=== PATIENT | male | born 1940 | race Caucasian/White ===

== ENCOUNTER → 2017-03-29 | Day surgery (SDC) | payer MEDICARE, OTHER ==
[~2017-03-29] MED LIST: ASPI81TA82 PO; BELLADONNA ALKALOIDS/OPIUM 60 MG SUPP RECTAL ONE; BLADTAB OR; GENTAMICIN SULFATE 80 MG/2 ML VIAL ONE; GLUC750T22 PO; LACTATED RINGER'S 1000 ML INJ 1,000 ML ONE; LORA10TA PO; LOSA50TA PO; MELO15 PO; MIDAZOLAM HCL 2 MG/2 ML VIAL ONE; OMEP20TA39 PO; ONDANSETRON HCL 4 MG/2 ML VIAL IV PUSH ONE; PROPOFOL 200 MG/20 ML AMP IV ONE; SIMV40TA PO; STERILE WATER FOR INJ 20 ML VIAL ONE; mitoMYcin 5 MG VIAL ONE
--- NOTE | 2017-03-29 11:02 | TN ---
cc: MABEL CAMPA M.D. DATE OF SURGERY 03/29/2017 PREOPERATIVE DIAGNOSES 1. Bladder lesions (ICD-10 code D41.4). 2. Personal history of bladder cancer (ICD-10 code Z85.51). POSTOPERATIVE DIAGNOSES 1. Bladder lesions (ICD-10 code D41.4). 2. Personal history of bladder cancer (ICD-10 code Z85.51). PROCEDURE 1. Transurethral resection of bladder tumor (TURBT) (CPT code 55621). 2. Intravesical instillation of mitomycin-C chemotherapy (CPT code 00124) INDICATION Mr. 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 On recent surveillance cystoscopy he was found to have several suspicious lesions and presents now for resection as well as treatment with the mitomycin-C intravesical chemotherapy intraoperatively. FINDINGS 1. Normal urethra. 2. The prostate shows trilobar hyperplasia with some moderate obstruction. 3. The ureteral orifices are seen bilaterally with evidence of previous resection. They are patent and effluxing clear urine. 4. The bladder itself showed several separate areas of sessile suspicious lesions throughout the bladder, more pronounced in the anterior bladder wall and dome. These were consistent with early transitional cell carcinoma. There were no brian papillary tumors identified. There was evidence of previous TUR scars also. PROCEDURE The procedure as well as risks and benefits were explained to the patient. Informed consent was obtained. The patient was taken to the major operative theater where he was placed in supine position. The patient was identified as well as the operative site. [place] time-out was performed in standard fashion. At this time general anesthetic and prophylactic intravenous antibiotics consisting of gentamicin 80 mg was administered. After adequate anesthetic he was placed low dorsal lithotomy position, prepped and draped the usual sterile fashion. At this time a 22.5-Serbian cystoscope with a 30-degree lens was inserted. The 30-degree lens was exchanged for the 70-degree lens. The entire bladder was systematically surveyed with the above findings. At this time civil rights representative biopsies were taken of several of the suspicious lesions and sent for final pathological evaluation. The total resection was probably in the area of 1 cm. At this time, using a [employer]classes[employer] probe the biopsy sites were fulgurated as well as we ended up fulgurating some areas that were suspicious that previously had not been biopsied so that there was no evidence of any obvious lesions after resection and fulguration. At this time, after confirming hemostasis and no perforation of the bladder, the cystoscope was removed and a 16-Serbian coude tip catheter was placed to straight drain. The bladder was evacuated and then mitomycin-C intravesical chemotherapy was performed with 40 mg and 20 cc of sterile water and then the catheter was then capped and 10 cc of sterile water was insufflated into the balloon. The patient was then placed back in a supine position, emerged from anesthetic without difficulty and was transferred to the recovery room in stable condition. The patient is to maintain the mitomycin for a total of 1 hour, changing positions every 15 minutes and then to have the mitomycin drained and disposed of as well as the catheter and to be able to void prior to discharge. There are no obvious complications. MD MERA Silva/TAVON /10:40 AM /10:53 AM
== END | disposition home or self-care (01) ==
LOC: ESDC 08:00
PROVIDERS: ATTEND Urology
DX: D41.4 Neoplasm of uncertain behavior of bladder (principal); Z85.51 Personal history of malignant neoplasm of bladder
CPT/HCPCS: 00912; 52234; 88307; J1580; J2250; J2405; J3010; J7120; J9280; 88305

== ENCOUNTER 2018-03-09 11:04 | Inpatient (IN) | payer MEDICARE, OTHER ==
[2018-03-09] VITALS (7 sets, daily range): BP systolic 106–181; BP diastolic 55–87; PULSE 68–91; RESP 17–18; TEMP 98–98.5; O2SAT 95–99
[~2018-03-09] VITALS: Ht 180.3 cm; Wt 87.1 kg
[~2018-03-09 11:04] MED LIST changes: -BELLADONNA ALKALOIDS/OPIUM 60 MG SUPP RECTAL ONE; -GENTAMICIN SULFATE 80 MG/2 ML VIAL ONE; -LACTATED RINGER'S 1000 ML INJ 1,000 ML ONE; -MIDAZOLAM HCL 2 MG/2 ML VIAL ONE; -ONDANSETRON HCL 4 MG/2 ML VIAL IV PUSH ONE; -PROPOFOL 200 MG/20 ML AMP IV ONE; -STERILE WATER FOR INJ 20 ML VIAL ONE; -mitoMYcin 5 MG VIAL ONE
[2018-03-09 11:54] LABS: AUTOMATED NEUTROPHIL # 3.9 TH/MM3 (1.8-7.7); BASOPHIL # 0.1 TH/MM3 (0-0.2); BASOPHIL % 1.1 % (0.0-2.0); EOSINOPHIL # 0.1 TH/MM3 (0-0.4); EOSINOPHIL % 2.1 % (0.0-4.0); HEMATOCRIT 44.4 % (39.0-51.0); HEMOGLOBIN 15.1 GM/DL (13.0-17.0); LYMPH % 23.1 % (9.0-44.0); LYMPHOCYTE # 1.4 TH/MM3 (1.0-4.8); MEAN CELL VOLUME 91.6 FL (80.0-100.0); MEAN CORPUSCULAR HEMOGLOBIN 31.2 PG (27.0-34.0); MEAN CORPUSCULAR HGB CONC 34.1 % (32.0-36.0); MEAN PLATELET VOLUME 7.8 FL (7.0-11.0); MONO % 9.3 % (0.0-8.0); MONOCYTE # 0.6 TH/MM3 (0-0.9); NEUT % 64.4 % (16.0-70.0); PLATELET COUNT 200 TH/MM3 (150-450); RED BLOOD COUNT 4.85 MIL/MM3 (4.50-5.90); RED CELL DISTRIBUTION WIDTH 13.9 % (11.6-17.2); WHITE BLOOD COUNT 6.1 TH/MM3 (4.0-11.0)
[2018-03-09 12:16] LABS: ALBUMIN 3.6 GM/DL (3.4-5.0); ALT (GPT) 37 U/L (12-78); AST (GOT) 20 U/L (15-37); BICARBONATE 28.5 MEQ/L (21.0-32.0); BLOOD UREA NITROGEN 14 MG/DL (7-18); CALCIUM 8.7 MG/DL (8.5-10.1); CHLORIDE 103 MEQ/L (98-107); CREATININE 0.84 MG/DL (0.60-1.30); GLOMERULAR FILTRATION RATE 89 ML/MIN (>89); GLUCOSE,RANDOM 94 MG/DL (74-106); SODIUM (NA) 140 MEQ/L (136-145)
[2018-03-09 12:18] LABS: ALKALINE PHOSPHATASE 66 U/L (45-117); TOTAL BILIRUBIN ADULT 0.8 MG/DL (0.2-1.0)
[2018-03-09] MEDS ORDERED: GADODIAMIDE PF 287 MG/ML 20 ML VIAL (for RAD MRI) IV PUSH ONE (13:00)
[2018-03-09] MEDS ORDERED: CLAR10CA3 PO (14:02)
[2018-03-09] MEDS ORDERED: ASPI81CH6 CHEW (14:02)
[2018-03-09] MEDS ORDERED: OMEP20TA93 PO (14:02)
[2018-03-09] MEDS ORDERED: LUTE20CA PO (14:02)
[2018-03-09] MEDS ORDERED: MELO15TA20 PO (14:02)
--- NOTE | 2018-03-09 14:13 | PD ---
HPI Chief Complaint: Dizziness Time Seen by Provider: 13:53 Travel History International Travel<30 days: No Contact w/Intl Traveler<30days: No Traveled to known affect area: No History of Present Illness HPI 77-year-old male presents to the ED 1 month history dizziness and ataxia. Patient states the dizziness is not a room spinning sensation. He states that it is worsened by standing and alleviated by sitting down. He endorses history of viral illness and cough 1 month before onset of symptoms, was treated by his primary care. He endorses history of seasonal allergies and takes a daily antihistamine for years. He denies headache, vision changes, chest pain, palpitations, shortness of breath, anorexia, abdominal pain, nausea, vomiting, weakness of the extremities. 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 He had an outpatient MRI earlier this month that was unremarkable. He states that he has had "my crystals were adjusted" 2 or 3 times with no improvement of symptoms. He tried meclizine for 3 or 4 days with no symptoms. He has an outpatient neurology appointment. PFSH Past Medical History Cancer: Yes (bladder tumors) Cardiovascular Problems: No Diabetes: No Endocrine: No Gastrointestinal Disorders: Yes (hx of reflux) Genitourinary: Yes (non-evasive bladder tumors) Hepatitis: No Hiatal Hernia: No Hypertension: Yes Immune Disorder: No Musculoskeletal: No Neurologic: No Psychiatric: No Respiratory: No Thyroid Disease: No Past Surgical History Genitourinary Surgery: Yes (bladder tumors removed) Joint Replacement: Yes (left hip) Pacemaker: No Thoracic Surgery: Yes (upper lobectomy due hystoplamosis) Other Surgery: Yes Social History Alcohol Use: Yes Tobacco Use: No Substance Use: No Allergies-Medications (Allergen,Severity, Reaction): Coded Allergies: cephalexin (Unverified Allergy, Severe, Hives, 03/09/18) Reported Meds & Prescriptions Reported Meds & Active Scripts Active Reported Claritin (Loratadine) 10 Mg Cap 10 Mg PO DAILY Lutein 20 Mg Cap 20 Mg PO DAILY Meloxicam 15 Mg Tab 15 Mg PO DAILY Omeprazole 20 Mg Tab 20 Mg PO DAILY Aspirin Low Dose (Aspirin) 81 Mg Chew 81 Mg CHEW DAILY Review of Systems Except as stated in HPI: all other systems reviewed are Neg Physical Exam Narrative GENERAL: Well-nourished, well-developed white male in no acute distress. SKIN: Focused skin assessment warm/dry. HEAD: Normocephalic. EYES: No scleral icterus. No injection or drainage. ENT: Bilaterally. No erythema, edema, exudate. NECK: Supple, trachea midline. No JVD or lymphadenopathy. CARDIOVASCULAR: Regular rate and rhythm without murmurs, gallops, or rubs. RESPIRATORY: Breath sounds clear and equal bilaterally. No accessory muscle use. GASTROINTESTINAL: Abdomen soft, non-tender, nondistended. MUSCULOSKELETAL: No cyanosis, or edema. Patient attempted to ambulate, very ataxic, unsteady gait, left foot dragging behind. NEUROLOGICAL: Awake and alert. Cranial nerves II through XII intact. Motor and sensory grossly within normal limits. Five out of 5 muscle strength in all muscle groups. Normal speech. BACK: Nontender without obvious deformity. No CVA tenderness. Data Data Last Documented VS Vital Signs Date Time Temp Pulse Resp B/P (MAP) Pulse Ox O2 Delivery O2 Flow Rate FiO2 03/09/18 16:48 69 18 165/82 (109) 98 Room Air 03/09/18 11:24 98.0 Orders Orders Electrocardiogram (03/09/18 11:28) Complete Blood Count With Diff (03/09/18 11:28) Comprehensive Metabolic Panel (03/09/18 11:28) Urinalysis - C+S If Indicated (03/09/18 14:13) Ct Brain W/O Iv Contrast(Rout) (03/09/18 ) Consult Neurology (03/09/18 ) Vitamin B12 (03/09/18 17:57) Thyroid Stimulating Hormone (03/09/18 17:57) Copper, Serum (03/09/18 17:57) Protein Electrophoresis Serum (03/09/18 17:57) Place In Observation (03/09/18 ) Vital Signs (Adult) Q4H (03/09/18 17:57) Activity Oob With Assistance (03/09/18 17:57) Intake + Output RAUL.QSHIFT (03/09/18 17:57) Diet Heart Healthy (03/09/18 Dinner) Sodium Chloride 0.9% Flush (Ns Flush) (03/09/18 18:00) Sodium Chloride 0.9% Flush (Ns Flush) (03/09/18 21:00) Comprehensive Metabolic Panel (03/10/18 06:00) Complete Blood Count With Diff (03/10/18 06:00) Pt Request For Service (03/09/18 17:57) Ot Request For Service (03/09/18 17:57) Case Management Consult (03/09/18 17:57) Scd Bilateral/Knee High RAUL.BID (03/09/18 17:57) Naloxone Inj (Narcan Inj) (03/09/18 18:00) Magnesium Hydroxide Liq (Milk Of Magnesi (03/09/18 18:00) Sennosides (Senokot) (03/09/18 18:00) Bisacodyl Supp (Dulcolax Supp) (03/09/18 18:00) Lactulose Liq (Lactulose Liq) (03/09/18 18:00) Drug Screen, Random Urine (03/09/18 17:57) (Hub Use Only)Inp Phy Cons/Ref (03/09/18 ) Admit Order (Ed Use Only) (03/09/18 18:32) Labs Laboratory Tests Test 03/09/18 11:38 03/09/18 14:30 White Blood Count 6.1 TH/MM3 Red Blood Count 4.85 MIL/MM3 Hemoglobin 15.1 GM/DL Hematocrit 44.4 % Mean Corpuscular Volume 91.6 FL Mean Corpuscular Hemoglobin 31.2 PG Mean Corpuscular Hemoglobin Concent 34.1 % Red Cell Distribution Width 13.9 % Platelet Count 200 TH/MM3 Mean Platelet Volume 7.8 FL Neutrophils (%) (Auto) 64.4 % Lymphocytes (%) (Auto) 23.1 % Monocytes (%) (Auto) 9.3 % Eosinophils (%) (Auto) 2.1 % Basophils (%) (Auto) 1.1 % Neutrophils # (Auto) 3.9 TH/MM3 Lymphocytes # (Auto) 1.4 TH/MM3 Monocytes # (Auto) 0.6 TH/MM3 Eosinophils # (Auto) 0.1 TH/MM3 Basophils # (Auto) 0.1 TH/MM3 CBC Comment DIFF FINAL Differential Comment Blood Urea Nitrogen 14 MG/DL Creatinine 0.84 MG/DL Random Glucose 94 MG/DL Total Protein 7.0 GM/DL Albumin 3.6 GM/DL Calcium Level 8.7 MG/DL Alkaline Phosphatase 66 U/L Aspartate Amino Transf (AST/SGOT) 20 U/L Alanine Aminotransferase (ALT/SGPT) 37 U/L Total Bilirubin 0.8 MG/DL Sodium Level 140 MEQ/L Potassium Level 3.9 MEQ/L Chloride Level 103 MEQ/L Carbon Dioxide Level 28.5 MEQ/L Anion Gap 9 MEQ/L Estimat Glomerular Filtration Rate 89 ML/MIN Urine Color YELLOW Urine Turbidity CLEAR Urine pH 7.0 Urine Specific [place] 1.012 Urine Protein NEG mg/dL Urine Glucose (UA) NEG mg/dL Urine Ketones NEG mg/dL Urine Occult Blood NEG Urine Nitrite NEG Urine Bilirubin NEG Urine Urobilinogen LESS THAN 2.0 MG/DL Urine Leukocyte Esterase NEG Urine RBC 4 /hpf Urine WBC 1 /hpf Microscopic Urinalysis Comment CULT NOT INDICATED MDM Medical Decision Making Medical Screen Exam Complete: Yes Emergency Medical Condition: Yes Differential Diagnosis TIA versus CVA versus chronic sinusitis versus vertigo versus other Narrative Course 77-year-old male presents to the ED 1 month history dizziness and ataxia. Patient states the dizziness is not a room spinning sensation. He states that it is worsened by standing and alleviated by sitting down. Worsened ataxic gait over the last few days. 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 He had an outpatient MRI earlier this month that was unremarkable. He states that he has had "my crystals were adjusted" 2 or 3 times with no improvement of symptoms. He tried meclizine for 3 or 4 days with no symptoms. He has an outpatient neurology appointment. Vitals reviewed. On physical exam there are no focal neuro deficits. However on walk testing the patient has a stumbling gait, dragging the left leg somewhat behind him. CBC, CMP, UA, CT of the brain all unremarkable. I reviewed the patient's outpatient MRI which was also unremarkable. Given his continued ataxia will admit for observation and have neuro see him. Patient's agreeable to this plan. I spoke with Dr. Dewitt who agrees to accept the patient to the medicine service. Please see medicine and neurology notes for disposition. Disposition: 01 DISCHARGE HOME Kaycee Urbina March 09, 2018 14:13
[2018-03-09 14:53] LABS: BILIRUBIN, URINE NEG (NEG); BLOOD, URINE NEG (NEG); GLUCOSE,URINE NEG (NEG); KETONE, URINE NEG (NEG); NITRITE,URINE NEG (NEG); URINE COLOR YELLOW (YELLW/STRAW); URINE LEUKOCYTE ESTERASE NEG (NEG)
--- NOTE | 2018-03-09 15:07 | PD ---
Physical Exam Date Seen by Provider: March 09, 2018 Time Seen by Provider: 14:00 Narrative I, Dr. Echeverria, have reviewed the advance practice practitioner's documentation and am in agreement, met with the patient face to face, made the diagnosis, and the medical decision making was done by me. *My assessment and Findings: Patient seen and evaluated with PA, please see PA notes for further details. He has been having dizziness going on for some time for which she is following up with primary care doctor, supposed to see a neurologist next week, had an MRI a week and a half ago. He is coming to the ER today because he states his dizziness has worsened and it feels different, he feels a little disoriented as well. He denies any trouble talking, numbness in arm, leg, chest pains, shortness of breath, or any other symptoms. Cardiac and pulmonary exam was unremarkable. Abdomen is soft, benign, nontender. Neurological exam did not show any signs of focal neurological deficits. No pronator drift. However, patient is having trouble walking, ataxic while we try to walk him in the ER my plan would be to admit him for further evaluation. EKG shows NSR, no ST elevation or depression, and no arrhythmias. No significant T-wave inversions. Laboratory Tests Test 03/09/18 11:38 03/09/18 14:30 Monocytes (%) (Auto) 9.3 % (0.0-8.0) Urine RBC 4 /hpf (0-3) Last [address] 03/09/18 0000 Signed Impressions: CONCLUSION: 1. Senescent changes without acute intracranial abnormality. Data Data Last Documented VS Vital Signs Date Time Temp Pulse Resp B/P (MAP) Pulse Ox O2 Delivery O2 Flow Rate FiO2 03/09/18 16:48 69 18 165/82 (109) 98 Room Air 03/09/18 11:24 98.0 Orders Orders Electrocardiogram (03/09/18 11:28) Complete Blood Count With Diff (03/09/18 11:28) Comprehensive Metabolic Panel (03/09/18 11:28) Urinalysis - C+S If Indicated (03/09/18 14:13) Ct Brain W/O Iv Contrast(Rout) (03/09/18 ) Labs Laboratory Tests Test 03/09/18 11:38 03/09/18 14:30 White Blood Count 6.1 TH/MM3 Red Blood Count 4.85 MIL/MM3 Hemoglobin 15.1 GM/DL Hematocrit 44.4 % Mean Corpuscular Volume 91.6 FL Mean Corpuscular Hemoglobin 31.2 PG Mean Corpuscular Hemoglobin Concent 34.1 % Red Cell Distribution Width 13.9 % Platelet Count 200 TH/MM3 Mean Platelet Volume 7.8 FL Neutrophils (%) (Auto) 64.4 % Lymphocytes (%) (Auto) 23.1 % Monocytes (%) (Auto) 9.3 % Eosinophils (%) (Auto) 2.1 % Basophils (%) (Auto) 1.1 % Neutrophils # (Auto) 3.9 TH/MM3 Lymphocytes # (Auto) 1.4 TH/MM3 Monocytes # (Auto) 0.6 TH/MM3 Eosinophils # (Auto) 0.1 TH/MM3 Basophils # (Auto) 0.1 TH/MM3 CBC Comment DIFF FINAL Differential Comment Blood Urea Nitrogen 14 MG/DL Creatinine 0.84 MG/DL Random Glucose 94 MG/DL Total Protein 7.0 GM/DL Albumin 3.6 GM/DL Calcium Level 8.7 MG/DL Alkaline Phosphatase 66 U/L Aspartate Amino Transf (AST/SGOT) 20 U/L Alanine Aminotransferase (ALT/SGPT) 37 U/L Total Bilirubin 0.8 MG/DL Sodium Level 140 MEQ/L Potassium Level 3.9 MEQ/L Chloride Level 103 MEQ/L Carbon Dioxide Level 28.5 MEQ/L Anion Gap 9 MEQ/L Estimat Glomerular Filtration Rate 89 ML/MIN Urine Color YELLOW Urine Turbidity CLEAR Urine pH 7.0 Urine Specific [place] 1.012 Urine Protein NEG mg/dL Urine Glucose (UA) NEG mg/dL Urine Ketones NEG mg/dL Urine Occult Blood NEG Urine Nitrite NEG Urine Bilirubin NEG Urine Urobilinogen LESS THAN 2.0 MG/DL Urine Leukocyte Esterase NEG Urine RBC 4 /hpf Urine WBC 1 /hpf Microscopic Urinalysis Comment CULT NOT INDICATED MDM Medical Record Reviewed: Yes Supervised Visit with ENZO: Yes Diagnosis Primary Impression: Dizziness Additional Impression: Ataxia Admitting Information Admitting Physician Requests: Admit Medina Echeverria MD March 09, 2018 15:07
--- NOTE | 2018-03-09 15:46 | RADRPT ---
EXAM DATE: 03/09/2018 3:22 PM EDT AGE/SEX: 77 years / Male INDICATIONS: Dizziness CLINICAL DATA: This is the patient's initial encounter. Patient reports that signs and symptoms have been present for 3 weeks and indicates a pain score of 0/10. MEDICAL/SURGICAL HISTORY: Hypertension. Bladder tumors None. RADIATION DOSE: 56.35 CTDI (mGy) COMPARISON: No prior [facility] exams available for comparison. TECHNIQUE: CT of the head without contrast. Using automated exposure control and adjustment of the mA and/or kV according to patient size, radiation dose was kept as low as reasonably achievable to ob tain optimal diagnostic quality images. FINDINGS: Cerebrum: Mild diffuse cerebral atrophy. The ventricles are normal for degree of atrophy. No evidenc e of midline shift, mass lesion, hemorrhage or acute infarction. No extraaxial fluid collections are seen. Posterior Fossa: The cerebellum and brainstem are intact. The 4th ventricle is midline. The cerebe llopontine angle is unremarkable. Extracranial: The visualized portion of the orbits is intact. Skull: The calvaria is intact. No evidence of skull fracture. CONCLUSION: 1. Senescent changes without acute intracranial abnormality. Electronically signed by: Pardeep Quevedo MD 03/09/2018 3:45 PM EDT
[2018-03-09] MEDS ORDERED: SENNOSIDES 8.6 MG TAB PO PRN (18:00)
[2018-03-09] MEDS ORDERED: NALOXONE HCL 0.4 MG/ML AMP IV PUSH PRN (18:00)
[2018-03-09] MEDS ORDERED: SODIUM CHLORIDE 0.9% FLUSH 10 ML FLUSH IV FLUSH PRN (18:00)
[2018-03-09] MEDS ORDERED: MAGNESIUM HYDROXIDE SUSP 30 ML CUP PO PRN (18:00)
[2018-03-09] MEDS ORDERED: BISACODYL 10 MG SUPP RECTAL PRN (18:00)
[2018-03-09] MEDS ORDERED: LACTULOSE SYRUP 20 GM/30 ML CUP PO PRN (18:00)
[2018-03-09] MEDS ORDERED: IOHEXOL 350 MG/ML 10 ML VIAL (for RAD DIAG) IVCONTRAST ONE (18:34)
--- NOTE | 2018-03-09 19:18 | HHI.HP ---
[facility] Lynne Encinas MD Admission Diagnosis Ataxia, dizziness Diagnoses: Travel History International Travel<30 Days: No Contact w/Intl Traveler <30 Da: No Traveled to Known Affected Are: No History of Present Illness 77-year-old male with chronic bilateral lower extremity neuropathy, hypertension , hyperlipidemia who presents with a little over a one-month history of progressively worsening ataxia, multiple falls, unable to walk or take care of himself at home for fear of safety. He also reports subjective weight loss over the past month, muscle wasting. Reports normal appetite. Denies any chest pain or shortness of breath. Denies nausea or vomiting. He denies actual vertigo, however has had vestibular rehab without any improvement. He is also reportedly had bilateral carotid ultrasound which were negative, MRI brain reportedly negative as well. Patient says he has fallen several times secondary to loss of balance, and does not feel safe going home. Review of Systems Except as stated in HPI: all other systems reviewed are Neg Past Family Social History Past Medical History Patient 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 Follows with urology yearly. GERD Hyperlipidemia Hypertension Hayfever Chronic idiopathic bilateral lower extremity neuropathy. 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 Reported Medications Reported Meds & Active Scripts Active Reported Claritin (Loratadine) 10 Mg Cap 10 Mg PO DAILY Lutein 20 Mg Cap 20 Mg PO DAILY Meloxicam 15 Mg Tab 15 Mg PO DAILY Omeprazole 20 Mg Tab 20 Mg PO DAILY Aspirin Low Dose (Aspirin) 81 Mg Chew 81 Mg CHEW DAILY Allergies: Coded Allergies: cephalexin (Unverified Allergy, Severe, Hives, 03/09/18) Family History Mother with dementia. Father secondary to alcoholism Social History Non-smoker. Patient drinks 2 drinks per day. Denies any issues with alcohol or withdrawal. Denies illicit drugs. Physical Exam Vital Signs Vital Signs Date Time Temp Pulse Resp B/P (MAP) Pulse Ox O2 Delivery O2 Flow Rate FiO2 03/09/18 18:49 68 18 117/62 (80) 97 Room Air 03/09/18 16:48 69 18 165/82 (109) 98 Room Air 03/09/18 14:02 71 18 181/87 (118) 99 Room Air 03/09/18 11:24 98.0 69 18 140/79 (99) 98 Physical Exam GENERAL: This is a well-nourished, well-developed patient, in no apparent distress. Alert and oriented SKIN: No rashes, ecchymoses or lesions. Cool and dry. HEAD: Atraumatic. Normocephalic. No temporal or scalp tenderness. EYES: Pupils equal round and reactive. Extraocular motions intact. No scleral icterus. No injection or drainage. ENT: Nose without bleeding, purulent drainage or septal hematoma. Throat without erythema, tonsillar hypertrophy or exudate. Uvula midline. Airway patent. NECK: Trachea midline. No JVD or lymphadenopathy. Supple, nontender, no meningeal signs. CARDIOVASCULAR: Regular rate and rhythm without murmurs, gallops, or rubs. RESPIRATORY: Clear to auscultation. Breath sounds equal bilaterally. No wheezes , rales, or rhonchi. GASTROINTESTINAL: Abdomen soft, non-tender, nondistended. No hepato-splenomegaly , or palpable masses. No guarding. MUSCULOSKELETAL: Extremities without clubbing, cyanosis, or edema. No joint tenderness, effusion, or edema noted. No calf tenderness. Negative Homans sign bilaterally. NEUROLOGICAL: Awake and alert. Cranial nerves II through XII intact. Patient does have bilateral lower extremity ataxia. No significant bilateral upper extremity ataxia.. Five out of 5 muscle strength in all muscle groups. Normal speech. Laboratory Laboratory Tests Test 03/09/18 11:38 03/09/18 14:30 White Blood Count 6.1 Red Blood Count 4.85 Hemoglobin 15.1 Hematocrit 44.4 Mean Corpuscular Volume 91.6 Mean Corpuscular Hemoglobin 31.2 Mean Corpuscular Hemoglobin Concent 34.1 Red Cell Distribution Width 13.9 Platelet Count 200 Mean Platelet Volume 7.8 Neutrophils (%) (Auto) 64.4 Lymphocytes (%) (Auto) 23.1 Monocytes (%) (Auto) 9.3 Eosinophils (%) (Auto) 2.1 Basophils (%) (Auto) 1.1 Neutrophils # (Auto) 3.9 Lymphocytes # (Auto) 1.4 Monocytes # (Auto) 0.6 Eosinophils # (Auto) 0.1 Basophils # (Auto) 0.1 CBC Comment DIFF FINAL Differential Comment Blood Urea Nitrogen 14 Creatinine 0.84 Random Glucose 94 Total Protein 7.0 Albumin 3.6 Calcium Level 8.7 Alkaline Phosphatase 66 Aspartate Amino Transf (AST/SGOT) 20 Alanine Aminotransferase (ALT/SGPT) 37 Total Bilirubin 0.8 Sodium Level 140 Potassium Level 3.9 Chloride Level 103 Carbon Dioxide Level 28.5 Anion Gap 9 Estimat Glomerular Filtration Rate 89 Urine Color YELLOW Urine Turbidity CLEAR Urine pH 7.0 Urine Specific [place] 1.012 Urine Protein NEG Urine Glucose (UA) NEG Urine Ketones NEG Urine Occult Blood NEG Urine Nitrite NEG Urine Bilirubin NEG Urine Urobilinogen LESS THAN 2.0 Urine Leukocyte Esterase NEG Urine RBC 4 Urine WBC 1 Microscopic Urinalysis Comment CULT NOT INDICATED Urine Opiates Screen NEG Urine Barbiturates Screen NEG Urine Amphetamines Screen NEG Urine Benzodiazepines Screen NEG Urine Cocaine Screen NEG Urine Cannabinoids Screen NEG Result Diagram: 03/09/18 1138 03/09/18 1138 Imaging Last Impressions Head CT 03/09/18 0000 Signed Impressions: CONCLUSION: 1. Senescent changes without acute intracranial abnormality. Caprini VTE Risk Assessment Caprini VTE Risk Assessment: Mod/High Risk (score >= 2) Caprini Risk Assessment Model Point Value = 1 Point Value = 2 Point Value = 3 Point Value = 5 Age 41-60 Minor surgery BMI > 25 kg/m2 Swollen legs Varicose veins or History of unexplained or recurrent spontaneous Oral contraceptives or hormone replacement Sepsis (< 1 month) Serious lung disease, including pneumonia (< 1 month) Abnormal pulmonary function Acute myocardial infarction Congestive heart failure (< 1 month) History of inflammatory bowel disease Medical patient at bed rest Age 61-74 Arthroscopic surgery Major open surgery (> 45 min) Laparoscopic surgery (> 45 min) Malignancy Confined to bed (> 72 hours) Immobilizing plaster cast Central venous access Age >= 75 History of VTE Family history of VTE Factor V Leiden Prothrombin [id number] Lupus anticoagulant Anticardiolipin antibodies Elevated serum homocysteine Heparin-induced thrombocytopenia Other congenital or acquired thrombophilia Stroke (< 1 month) Elective arthroplasty Hip, pelvis, or leg fracture Acute spinal cord injury (< 1 month) Prophylaxis Regimen Total Risk Factor Score Risk Level Prophylaxis Regimen 0-1 Low Early ambulation 2 Moderate Order ONE of the following: *Sequential Compression Device (SCD) *Heparin 5000 units SQ BID 3-4 Higher Order ONE of the following medications: *Heparin 5000 units SQ TID *Enoxaparin/Lovenox 40 mg SQ daily (WT < 150 kg, CrCl > 30 mL/min) *Enoxaparin/Lovenox 30 mg SQ daily (WT < 150 kg, CrCl > 10-29 mL/min) *Enoxaparin/Lovenox 30 mg SQ BID (WT < 150 kg, CrCl > 30 mL/min) AND/OR *Sequential Compression Device (SCD) 5 or more Highest Order ONE of the following medications: *Heparin 5000 units SQ TID (Preferred with Epidurals) *Enoxaparin/Lovenox 40 mg SQ daily (WT < 150 kg, CrCl > 30 mL/min) *Enoxaparin/Lovenox 30 mg SQ daily (WT < 150 kg, CrCl > 10-29 mL/min) *Enoxaparin/Lovenox 30 mg SQ BID (WT < 150 kg, CrCl > 30 mL/min) AND *Sequential Compression Device (SCD) Assessment and Plan Assessment and Plan //Ataxia, onset over the past month, worsening //Generalized weakness //Unsafe to go home //Suspect acute on chronic small fiber neuropathy -Recent carotid ultrasounds reportedly negative as outpatient. MRI brain reportedly negative as well. -Head CT with no acute findings = Patient and say he is unsafe to go home at this time. = PT/OT consults. = Patient has been on new turmeric supplement over the past month, and I have asked him to stop this. = Check copper levels, vitamin B12, SPEP, TSH = Neurology consult pending. //GERD. Chronic. Continue PPI. //Hyperlipidemia. Continue statin. //Chronic allergies. Will hold off on antihistamine at this time. //Recent subjective weight loss. Patient will need a follow-up with primary care for this. //Hypertension. Blood pressure variable. Will check orthostatic vitals. Pending orthostatic vitals, will likely continue home medications when verified. Discussed Condition With Patient, nurse, ED physician, at bedside. Param Dewitt MD March 09, 2018 19:18
--- NOTE | 2018-03-09 19:59 | HHI.PR ---
Addendum to Inpatient Note Additional Information ER provider called to inform us that she found a tick on patient's neck. No target lesions. We will order Lyme IGM, IGG. If tick borne illness such as Lyme disease is a potential etiology, consider Doxycycline for two weeks. Nubia Daniels DO March 09, 2018 19:59
[2018-03-09] MEDS: SODIUM CHLORIDE 0.9% FLUSH 10 ML FLUSH IV FLUSH SCH (21:00)
[2018-03-10] VITALS (9 sets, daily range): BP systolic 116–148; BP diastolic 60–82; PULSE 60–88; RESP 16–20; TEMP 97.5–98.7; O2SAT 96–98
--- NOTE | 2018-03-10 07:18 | EKG ---
Date Performed: 03/09/2018 Time Performed: 11:35:46 PTAGE: 77 years EKG: Sinus rhythm MARKED LEFT AXIS DEVIATION SEPTAL MYOCARDIAL INFARCTION ABNORMAL ECG PREVIOUS TRACING : 08/19/2015 12.10 DOCTOR: Letha Alcaraz Interpretating Date/Time 03/10/2018 07:16:33
[2018-03-10 07:44] LABS: AUTOMATED NEUTROPHIL # 3.7 TH/MM3 (1.8-7.7); BASOPHIL % 0.8 % (0.0-2.0); EOSINOPHIL # 0.2 TH/MM3 (0-0.4); EOSINOPHIL % 2.8 % (0.0-4.0); HEMATOCRIT 41.8 % (39.0-51.0); HEMOGLOBIN 14.1 GM/DL (13.0-17.0); LYMPH % 22.7 % (9.0-44.0); LYMPHOCYTE # 1.3 TH/MM3 (1.0-4.8); MEAN CELL VOLUME 91.9 FL (80.0-100.0); MEAN CORPUSCULAR HEMOGLOBIN 31.1 PG (27.0-34.0); MEAN CORPUSCULAR HGB CONC 33.9 % (32.0-36.0); MEAN PLATELET VOLUME 8.1 FL (7.0-11.0); MONO % 9.4 % (0.0-8.0); MONOCYTE # 0.5 TH/MM3 (0-0.9); NEUT % 64.3 % (16.0-70.0); PLATELET COUNT 180 TH/MM3 (150-450); RED BLOOD COUNT 4.54 MIL/MM3 (4.50-5.90); RED CELL DISTRIBUTION WIDTH 13.8 % (11.6-17.2); WHITE BLOOD COUNT 5.7 TH/MM3 (4.0-11.0)
[2018-03-10] MEDS ORDERED: SODIUM CHLOR 0.9% 1000 ML INJ 1,000 ML IV SCH (08:06)
[2018-03-10 08:10] LABS: ALBUMIN 3.4 GM/DL (3.4-5.0); ALT (GPT) 33 U/L (12-78); AST (GOT) 18 U/L (15-37); BICARBONATE 29.2 MEQ/L (21.0-32.0); BLOOD UREA NITROGEN 14 MG/DL (7-18); CALCIUM 8.7 MG/DL (8.5-10.1); CHLORIDE 103 MEQ/L (98-107); CREATININE 0.89 MG/DL (0.60-1.30); GLOMERULAR FILTRATION RATE 83 ML/MIN (>89); GLUCOSE,RANDOM 94 MG/DL (74-106); SODIUM (NA) 141 MEQ/L (136-145)
[2018-03-10 08:12] LABS: ALKALINE PHOSPHATASE 60 U/L (45-117); TOTAL BILIRUBIN ADULT 0.6 MG/DL (0.2-1.0); TOTAL PROTEIN 6.6 GM/DL (6.4-8.2)
--- NOTE | 2018-03-10 08:51 | MB ---
cc: Mickey Mata MD DATE: 03/10/2018 HISTORY OF PRESENT ILLNESS: The patient is a 77-year-old right-handed man with a history of bladder cancer, but no metastases, who for the last 2-3 weeks has had dizziness. No true vertigo. He has fallen 3 times. He had some vestibular rehabilitation. It didn't seem to help. He has had trouble walking. He came into the ER. EKG showed sinus rhythm. SOCIAL HISTORY: Not a smoker or a drinker. He lives with his . FAMILY HISTORY: Negative for cancer, seizure or stroke. MEDICATIONS: 1. Claritin. 2. Lutein. 3. Mobic. 4. Omeprazole. 5. 81 of aspirin a day. 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 ALLERGIES: CEPHALEXIN. REVIEW OF SYSTEMS: He denied any hypertension, diabetes, hypercholesterolemia, RI, CABG, cardiac arrhythmia, atrial fibrillation, Coumadin, renal, hepatic or pulmonary disease, thyroid disease, lupus, ulcer, seizure or stroke. No chest pain, palpitations, or headache. PHYSICAL EXAMINATION: VITAL SIGNS: Afebrile, 91, 17, 106/55, standing blood pressure 113/60. NECK: There were no carotid bruits. HEART: Regular rate and rhythm. I did not detect a murmur. NEUROLOGIC: Pupils are equal. Visual franco are full. Extraocular movements intact with a few beats of fine nystagmus looking to the right. Tongue was midline. Face is symmetric with normal sensation. There is a positive left drift. He had normal strength in the upper and lower extremities bilaterally except the left finger extensors appear to be a little bit weak, I would say about a 4+ to 5-/5. DTRs are absent throughout. Toes are downgoing bilaterally. The left toe actually extensor hallucis longus is weak, but that is chronic. He did have sciatica remotely. Pinprick was intact throughout all four extremities and face. He is ataxic slightly in the right upper extremity, but much more so in the left upper extremity. No really ataxic too much in the legs on [id number] or [id number] maybe a little bit more on the left than the right. Speech is fluent. He is not aphasic. He gives a good history. LABORATORY DATA: CBC is normal. Urine drug screen negative. UA negative. Basic metabolic profile, LFTs are normal. B12 is normal. Thyroid normal. Coags normal. CBC was normal. CAT scan of the brain was read as normal, but there is a ring-like hyperdensity on the right basal ganglia region. EKG was sinus rhythm. IMPRESSION: He is slightly ataxic in the right arm, but he has got a left drift, a little bit of weakness and left ataxia in the left upper extremity. There may be an abnormality on the CT. He says he had a normal MRI about 2 weeks ago. We are going to check an MRI of the brain here, MRA pala of [place] and neck, but he does appear to have significant disease. I do note he was bitten by a tick and he just found that yesterday. There is no bull's eye rash with that, although he has got a little bit of what looks like cellulitis, I think is probably unrelated to his symptoms as they have been going on about 3 weeks, and I will be following him with you in the hospital. MD MARTHA Roque/JUDI , 08:06 AM , 08:50 AM
[2018-03-10] MEDS: PANTOPRAZOLE SOD 20 MG DELAYED RELEASE TAB PO SCH (08:56)
[2018-03-10] MEDS: ASPIRIN 81 MG CHEW TAB CHEW SCH (08:56)
[2018-03-10] MEDS: SODIUM CHLORIDE 0.9% FLUSH 10 ML FLUSH IV FLUSH SCH ×2 (08:56→21:31)
[2018-03-10] MEDS ORDERED: NON-FORMULARY DRUG (Lutein 20 MG) PO SCH (09:00)
--- NOTE | 2018-03-10 14:05 | RADRPT ---
EXAM DATE: 03/10/2018 1:58 PM EDT AGE/SEX: 77 years / Male INDICATIONS: Confusion. Loss of balance. CLINICAL DATA: This is the patient's initial encounter. Patient reports that signs and symptoms have been present for 1 day and indicates a pain score of 0/10. MEDICAL/SURGICAL HISTORY: Hypertension. Lobectomy. Discectomy, lumbar. Left hip replacement. COMPARISON: No prior [place] exams available for comparison. TECHNIQUE: 3D [id number] MRA was performed. Source images, multiplanar STS MIP, and 3D volum e MIP reconstructions were reviewed. FINDINGS: There is excellent visualization of the major intracranial arteries out to the second-order branch ve ssels. There is no evidence for aneurysm, vessel truncation or stenosis, and no evidence for vascula r malformation. Note is made of origin of the left posterior cerebral artery. CONCLUSION: No acute [place] of [place] vascular findings. Electronically signed by: Sonu Yates MD 03/10/2018 2:03 PM EDT
--- NOTE | 2018-03-10 14:09 | RADRPT ---
EXAM DATE: 03/10/2018 2:05 PM EDT AGE/SEX: 77 years / Male INDICATIONS: Confusion. Loss of balance. CLINICAL DATA: This is the patient's initial encounter. Patient reports that signs and symptoms have been present for 1 day and indicates a pain score of 2/10. MEDICAL/SURGICAL HISTORY: Hypertension. Discectomy, lumbar. Lobectomy. Left hip replacment. COMPARISON: No prior [place] exams available for comparison. TECHNIQUE: Multiplanar, multisequence examination of the brain was performed without and with 20 ml O mniscan (gadodiamide) contrast as a single exam dose. FINDINGS: Cerebrum: The ventricles are normal for age. No evidence of midline shift, mass lesion, hemorrhage or acute infarction. No extraaxial fluid collections are seen. The pituitary gland and suprasellar cistern are normal in configuration. White Matter: No significant signal abnormalities are seen in the white matter. Posterior Fossa: The cerebellum and brainstem are intact. The 4th ventricle is midline. The cerebel lopontine angle is unremarkable. The cerebellar tonsils are normal in position. Diffusion Imaging: No focal areas of restricted diffusion are seen. No evidence of acute infarction . Extracranial: The visualized portions of the orbits are unremarkable. Mucus retention cyst in the ba se of the right maxillary antrum. Post Contrast: No abnormal areas of parenchymal or dural enhancement. No evidence of blood-brain ba rrier breakdown. CONCLUSION: No acute intracranial findings. Electronically signed by: Sonu Yates MD 03/10/2018 2:08 PM EDT
--- NOTE | 2018-03-10 14:55 | RADRPT ---
EXAM DATE: 03/10/2018 2:43 PM EDT AGE/SEX: 77 years / Male INDICATIONS: Stroke. CLINICAL DATA: This is the patient's initial encounter. Patient reports that signs and symptoms have been present for 1 day and indicates a pain score of 0/10. MEDICAL/SURGICAL HISTORY: Hypertension. Fusion, lumbar. Left hip replacement. COMPARISON: No prior [place] exams available for comparison. TECHNIQUE: 20 ml Omniscan (gadodiamide) contrast infused MRA (single exam dose) of the extracranial circulation was performed using a neurovascular coil. Postprocessing was performed, including rotat ing sub-volume maximum intensity projections of each carotid artery, rotating full-volume maximum int ensity projections of both carotid arteries, sagittal and coronal sliding thin-slab reformations of e ach carotid artery, and left oblique sliding thin-slab reformation through the aortic arch to include the origin of the arch branch vessels. FINDINGS: Aortic Arch : There is a three-vessel origin of the great vessels from the aorta. No evidence of o stial narrowing. Right Carotid : The common carotid artery is intact. The carotid bulb has a normal configuration wi thout ulceration or narrowing. Minimal eccentric plaquing involving the proximal ICA producing very s light stenotic narrowing on the order of 20%. The external carotid artery is intact. Left Carotid : The common carotid artery is intact. The carotid bulb has a normal configuration wit hout ulceration or narrowing. The internal carotid artery lumen is smooth without stenosis. The ext ernal carotid artery is intact. Vertebrals : The vertebral arteries have a symmetric diameter. No stenotic lesions are seen. CONCLUSION: Minimal proximal right ICA stenosis Percent stenosis is calculated using the diameter of the stenotic region over the diameter of the nor mal distal internal carotid artery Electronically signed by: Sonu Yates MD 03/10/2018 2:53 PM EDT
--- NOTE | 2018-03-10 15:00 | HHI.PR ---
Subjective Remarks F/u ataxia and falls. No new complaints worried about possible Lyme disease found to have a tick left hip Objective Vitals Vital Signs Date Time Temp Pulse Resp B/P (MAP) Pulse Ox O2 Delivery O2 Flow Rate FiO2 03/10/18 12:31 97.9 78 18 124/62 (82) 98 140/72 (94) 146/80 (102) 03/10/18 09:05 98.2 68 20 122/60 (80) 98 03/10/18 04:33 97.8 70 18 120/66 (84) 96 03/09/18 23:13 98.4 91 17 106/55 (72) 95 123/67 (85) 113/60 (77) 03/09/18 20:14 98.5 89 17 127/75 (92) 96 03/09/18 20:00 03/09/18 19:27 78 18 134/63 (86) 101 132/73 (92) 03/09/18 18:49 68 18 117/62 (80) 97 Room Air 03/09/18 16:48 69 18 165/82 (109) 98 Room Air I/O 03/09/18 03/09/18 03/09/18 03/10/18 03/10/18 03/10/18 07:00 15:00 23:00 07:00 15:00 23:00 Intake Total 300 ml 100 ml Balance 300 ml 100 ml Intake Oral 300 ml 100 ml Result Diagram: 03/10/18 0635 03/10/18 0635 Imaging Last Impressions Neck Magnetic Resonance Angiography 03/10/18 0806 Signed Impressions: CONCLUSION: Minimal proximal right ICA stenosis Percent stenosis is calculated using the diameter of the stenotic region over t he diameter of the normal distal internal carotid artery Head Magnetic Resonance Angiography 03/10/18 0806 Signed Impressions: CONCLUSION: No acute [place] of [place] vascular findings. Brain MRI 03/10/18 0806 Signed Impressions: CONCLUSION: No acute intracranial findings. Head CT 03/09/18 0000 Signed Impressions: CONCLUSION: 1. Senescent changes without acute intracranial abnormality. Objective Remarks GENERAL: This is a well-nourished, well-developed patient, in no apparent distress. Alert and oriented SKIN: No rashes, ecchymoses or lesions. Cool and dry. Tick bite left hip but does not look like EM CARDIOVASCULAR: Regular rate and rhythm without murmurs, gallops, or rubs. RESPIRATORY: Clear to auscultation. Breath sounds equal bilaterally. No wheezes , rales, or rhonchi. GASTROINTESTINAL: Abdomen soft, non-tender, nondistended. MUSCULOSKELETAL: Extremities without clubbing, cyanosis, or edema. No joint tenderness, effusion, or edema noted. No calf tenderness. Negative Homans sign bilaterally. NEUROLOGICAL: Awake and alert. Cranial nerves II through XII intact. Patient does have bilateral lower extremity ataxia. No significant bilateral upper extremity ataxia.. Five out of 5 muscle strength in all muscle groups. Normal speech. Procedures none A/P Problem List: (1) Ataxia ICD Code: R27.0 - Ataxia, unspecified Status: Acute Assessment and Plan Ataxia, onset over the past month, worsening Generalized weakness Unsafe to go home Suspect acute on chronic small fiber neuropathy -Recent carotid ultrasounds reportedly negative as outpatient. MRI brain reportedly negative as well. -Head CT with no acute findings = Patient and say he is unsafe to go home at this time. = PT/OT consults. = Patient has been on new turmeric supplement over the past month, and I have asked him to stop this. = F/u copper levels, SPEP and lyme titer = Neurology ff. GERD. Chronic. Continue PPI. Hyperlipidemia. Continue statin. Chronic allergies. Will hold off on antihistamine at this time. Recent subjective weight loss. Patient will need a follow-up with primary care for this. Hypertension. Blood pressure variable. Not orthostatic DVT proph with SCd and early proph Walker Steen MD March 10, 2018 15:00
[2018-03-10 15:36] LABS: CHOLESTEROL 151 MG/DL (120-200); TRIGLYCERIDES 186 MG/DL (42-150)
[2018-03-10 15:40] LABS: CHOLESTEROL/ HDL RATIO 3.36 RATIO; HDL CHOLESTEROL 44.9 MG/DL (40.0-60.0); LDL CHOLESTEROL 69 MG/DL (0-99); TROPONIN I LESS THAN 0.02 NG/ML (0.02-0.05)
--- NOTE | 2018-03-10 20:06 | RADRPT ---
EXAM DATE: 03/10/2018 7:58 PM EDT AGE/SEX: 77 years / Male INDICATIONS: Myelopathy. Neck pain. CLINICAL DATA: This is the patient's initial encounter. Patient reports that signs and symptoms have been present for 1 day and indicates a pain score of 8/10. MEDICAL/SURGICAL HISTORY: Hypertension. Carcinoma, bladder. Fusion, lumbar. Left hip replaceme nt, Lung sx, Carpal tunnel sx, Tumor removed from bladder, Finger sx. COMPARISON: No prior [place] exams available for comparison. TECHNIQUE: Multiplanar, multisequence MRI examination of the cervical spine was performed without co ntrast. FINDINGS: At C2-3 there is no significant abnormality. At C3-4 there is a mild disc osteophyte complex with minimal encroachment on the anterior thecal sac. Mild right-sided foraminal stenosis. Left neural foramen patent. At C4-5 there is a broad-based disc bulge effacing the anterior thecal sac around the cord without si gnificant cord compression. Minimal foraminal encroachment. At C5-6 there is a broad-based disc bulge effacing the anterior thecal sac without canal stenosis. Mi nimal foraminal encroachment. At C6-7 there is a broad-based disc bulge partially effacing the anterior thecal sac with minimal for aminal encroachment. At C7-T1 there is no significant abnormality. CONCLUSION: 1. Broad-based posterior disc bulges between C3 and C7 resulting in some effacement of anterior thec al sac. No cord compression or cord edema. Normal alignment of the cervical spine. Electronically signed by: Sunil White MD 03/10/2018 8:05 PM EDT
[2018-03-11] VITALS (10 sets, daily range): BP systolic 113–140; BP diastolic 56–80; PULSE 55–86; RESP 14–20; TEMP 97.6–98.2; O2SAT 93–98
[2018-03-11] MEDS: PANTOPRAZOLE SOD 20 MG DELAYED RELEASE TAB PO SCH (08:35)
[2018-03-11] MEDS: SODIUM CHLORIDE 0.9% FLUSH 10 ML FLUSH IV FLUSH SCH ×2 (08:36→21:18)
[2018-03-11] MEDS: ASPIRIN 81 MG CHEW TAB CHEW SCH (08:37)
--- NOTE | 2018-03-11 10:05 | HHI.PR ---
Subjective Remarks sr? Objective Vital Signs Date Time Temp Pulse Resp B/P (MAP) Pulse Ox O2 Delivery O2 Flow Rate FiO2 03/11/18 08:50 97.8 86 20 128/64 (85) 93 03/11/18 08:49 97.8 64 14 138/67 (90) 93 03/11/18 04:10 98.1 64 124/57 (79) 94 122/67 (85) 122/70 (87) 03/11/18 03:03 56 03/11/18 00:15 63 03/10/18 23:53 98.2 60 116/71 (86) 96 126/66 (86) 134/82 (99) 03/10/18 22:25 88 03/10/18 21:34 98.7 78 18 126/66 (86) 98 130/72 (91) 148/72 (97) 03/10/18 21:00 97.5 65 16 123/65 (84) 97 03/10/18 17:59 86 03/10/18 16:31 98.2 68 18 130/78 (95) 96 03/10/18 12:31 97.9 78 18 124/62 (82) 98 140/72 (94) 146/80 (102) I/O 03/10/18 03/10/18 03/10/18 03/11/18 03/11/18 03/11/18 07:00 15:00 23:00 07:00 15:00 23:00 Intake Total 100 ml Balance 100 ml Intake Oral 100 ml Result Diagram: 03/10/18 0635 03/10/18 0635 Objective Remarks mild weak left fdi some erythema left side at bite mild axial ataxic hait hallpike neg not ataxic left f to nose this am no nystag dtr absent but hx of that Assessment and Plan Assessment and Plan imp mri/a/a neg labsd ok still very ataxic gait axial ataxia cbllm looks ok on mri r ventral medulla ? enhance ? soft call ow neg i think not real probably plan mri c spine neg check ct chest for any tumor or paraneoplastic consider LP for gbs variant mr t spine paraneo labs MED TEAM VERIFY TELE IS SR VS AFIB PLZ Mickey Potter MD March 11, 2018 10:05
--- NOTE | 2018-03-11 11:05 | HHI.PR ---
Subjective Remarks Follow-up ataxia. Discussed with neurology. Telemetry reviewed no obvious A. fib Objective Vitals Vital Signs Date Time Temp Pulse Resp B/P (MAP) Pulse Ox O2 Delivery O2 Flow Rate FiO2 03/11/18 08:50 97.8 86 20 128/64 (85) 93 03/11/18 08:49 97.8 64 14 138/67 (90) 93 03/11/18 04:10 98.1 64 124/57 (79) 94 122/67 (85) 122/70 (87) 03/11/18 03:03 56 03/11/18 00:15 63 03/10/18 23:53 98.2 60 116/71 (86) 96 126/66 (86) 134/82 (99) 03/10/18 22:25 88 03/10/18 21:34 98.7 78 18 126/66 (86) 98 130/72 (91) 148/72 (97) 03/10/18 21:00 97.5 65 16 123/65 (84) 97 03/10/18 17:59 86 03/10/18 16:31 98.2 68 18 130/78 (95) 96 03/10/18 12:31 97.9 78 18 124/62 (82) 98 140/72 (94) 146/80 (102) I/O 03/10/18 03/10/18 03/10/18 03/11/18 03/11/18 03/11/18 07:00 15:00 23:00 07:00 15:00 23:00 Intake Total 100 ml Balance 100 ml Intake Oral 100 ml Result Diagram: 03/10/18 0635 03/10/18 0635 Imaging Last Impressions Thoracic Spine MRI 03/11/18 0000 Signed Impressions: CONCLUSION: 1. Tiny right paracentral bulging T5-T6 2. Small right paracentral bulging T7-T8 3. Mild left lateral bulging at T10-T11 4. Mild degenerative changes. Chest CT 03/11/18 0000 Signed Impressions: CONCLUSION: 1. No acute intrathoracic abnormality. In particular, no CT evidence to sugges t metastatic disease to the chest. 2. Coronary artery atherosclerotic calcifications. 3. Mild chronic interstitial changes. 4. Prior granulomatous disease. Cervical Spine MRI 03/11/18 0000 Signed Impressions: CONCLUSION: 1. Unremarkable postcontrast images of the cervical spine. Abdomen/Pelvis CT 03/11/18 Signed Impressions: CONCLUSION: 1. The evaluation of the urinary bladder is limited partly due to beam hardeni ng artifact from a left hip prosthesis. I am not able to appreciate a discrete mass. 2. Prior granulomatous disease. 3. Small sclerotic focus involving the sacrum at the S1 level felt to relate t o a bone island. 4. 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 5. 2 nonobstructing renal calculi on the left. Neck Magnetic Resonance Angiography 03/10/18805 Signed Impressions: CONCLUSION: Minimal proximal right ICA stenosis Percent stenosis is calculated using the diameter of the stenotic region over t he diameter of the normal distal internal carotid artery Head Magnetic Resonance Angiography 03/10/18805 Signed Impressions: CONCLUSION: No acute three affiliated of Moser vascular findings. Brain MRI 03/10/18805 Signed Impressions: CONCLUSION: No acute intracranial findings. Head CT 03/09/18 Signed Impressions: CONCLUSION: 1. Senescent changes without acute intracranial abnormality. Objective Remarks GENERAL: This is a well-nourished, well-developed patient, in no apparent distress. Alert and oriented SKIN: No rashes, ecchymoses or lesions. Cool and dry. Tick bite left hip but does not look like EM CARDIOVASCULAR: Regular rate and rhythm without murmurs, gallops, or rubs. RESPIRATORY: Clear to auscultation. Breath sounds equal bilaterally. No wheezes , rales, or rhonchi. GASTROINTESTINAL: Abdomen soft, non-tender, nondistended. MUSCULOSKELETAL: Extremities without clubbing, cyanosis, or edema. No joint tenderness, effusion, or edema noted. No calf tenderness. Negative Homans sign bilaterally. NEUROLOGICAL: Awake and alert. Cranial nerves II through XII intact. Patient does have bilateral lower extremity ataxia. No significant bilateral upper extremity ataxia.. Five out of 5 muscle strength in all muscle groups. Normal speech. Procedures none A/P Problem List: (1) Ataxia ICD Code: R27.0 - Ataxia, unspecified Status: Acute Assessment and Plan Ataxia, onset over the past month, worsening. This is persistent, etiology to be determined. Patient was found to have a tick bite on admission Generalized weakness Unsafe to go home = Patient and say he is unsafe to go home at this time. Fall precautions = PT recommends inpatient rehab = F/u copper levels, SPEP, RPR and lyme titer = Neurology ff. Patient has underwent extensive imaging workup negative so far may need lumbar puncture. Paraneoplastic labs have been ordered GERD. Chronic. Continue PPI. Hyperlipidemia. Continue statin. Chronic allergies. Will hold off on antihistamine at this time. Recent subjective weight loss. Patient will need a follow-up with primary care for this. Hypertension. Blood pressure variable. Not orthostatic DVT proph with SCd and early ambulation Discharge Planning Not stable for dc Walker Steen MD March 11, 2018 11:05
[2018-03-11] MEDS ORDERED: GADODIAMIDE PF 287 MG/ML 20 ML VIAL (for RAD MRI) IVCONTRAST ONE (11:50)
[2018-03-11] MEDS ORDERED: IOHEXOL 350 MG/ML 10 ML VIAL (for RAD DIAG) IVCONTRAST ONE (12:10)
--- NOTE | 2018-03-11 12:19 | RADRPT ---
EXAM DATE: 03/11/2018 12:14 PM EDT AGE/SEX: 77 years / Male INDICATIONS: . Inability to ambulate. CLINICAL DATA: This is the patient's initial encounter. Patient reports that signs and symptoms have been present for 2 days and indicates a pain score of 0/10. MEDICAL/SURGICAL HISTORY: Hypertension. Carcinoma, bladder. Lobectomy. Fusion, lumbar. COMPARISON: No prior [facility] exams available for comparison. TECHNIQUE: Multiplanar, multisequence MRI of the thoracic spine was performed without and with 16cc ml Omniscan (gadodiamide) contrast as a single exam dose. FINDINGS: Vertebrae: Normal vertebral body height. Homogeneous marrow signal. There are some mild degenerativ e changes present. No compression fracture injuries are demonstrated. No abnormal bone marrow edema i s demonstrated. Alignment: Normal. Cord: Normal position and configuration. Post Contrast: No abnormal areas of enhancement are seen in the cord, dural or paraspinal regions. T1-T2: The thecal sac has a normal diameter. No evidence of disc bulge or protrusion. T2-T3: The thecal sac has a normal diameter. No evidence of disc bulge or protrusion. T3-T4: The thecal sac has a normal diameter. No evidence of disc bulge or protrusion. T4-T5: The thecal sac has a normal diameter. No evidence of disc bulge or protrusion. T5-T6: Tiny right paracentral bulging. The neural foramina appear patent. T6-T7: The thecal sac has a normal diameter. No evidence of disc bulge or protrusion. T7-T8: Small right paracentral bulging. The neural foramina appear patent. T8-T9: The thecal sac has a normal diameter. No evidence of disc bulge or protrusion. T9-T10: The thecal sac has a normal diameter. No evidence of disc bulge or protrusion. T10-T11: Mild left lateral bulging with narrowing of the left neural foramina. The right neural fora bekah is patent. T11-T12: The thecal sac has a normal diameter. No evidence of disc bulge or protrusion. T12-L1: The thecal sac has a normal diameter. No evidence of disc bulge or protrusion. CONCLUSION: 1. Tiny right paracentral bulging T5-T6 2. Small right paracentral bulging T7-T8 3. Mild left lateral bulging at T10-T11 4. Mild degenerative changes. Electronically signed by: Richard Hein MD 03/11/2018 12:18 PM EDT
--- NOTE | 2018-03-11 12:22 | RADRPT ---
EXAM DATE: 03/11/2018 12:18 PM EDT AGE/SEX: 77 years / Male INDICATIONS: Inability to ambulate. CLINICAL DATA: This is the patient's initial encounter. Patient reports that signs and symptoms have been present for 2 days and indicates a pain score of 0/10. MEDICAL/SURGICAL HISTORY: Carcinoma, bladder. Hypertension. Fusion, lumbar. Lobectomy. Left h ip replacement Bladder surgery COMPARISON: [facility] [place], MRI CERVICAL SPINE W/O CONTRAST, 03/10/2018. . TECHNIQUE: Multiplanar, multisequence MRI examination of the cervical spine was performed with16 ml Omniscan (gadodiamide) contrast as a single exam dose. FINDINGS: Patient returns for a postcontrast examination of the cervical spine. This is compared to the precont rast study performed on 03/10/2018. There continues to be anatomic alignment of the cervical spine. Th ere is stable mild primary degenerative-type changes and stable mild disc bulging. There is normal si gnal intensity of the spinal cord. On the postcontrast images, no abnormal postcontrast enhancement i s demonstrated. CONCLUSION: 1. Unremarkable postcontrast images of the cervical spine. Electronically signed by: Richard Hein MD 03/11/2018 12:20 PM EDT
--- NOTE | 2018-03-11 12:24 | ECHRPT ---
Indication: CVA/TIA CONCLUSIONS The left ventricular systolic function is normal with an estimated ejection fraction in the range of 55-60%. Normal left ventricular size. Normal wall thickness. No regional wall motion abnormalities are prese nt. Trace mitral valve regurgitation. Slight aortic valve sclerosis is present. There is trace tricuspid valve regurgitation. The estimated pulmonary arterial pressure is 29 mmHg. BP: 146 / 80 HR: 78 Rhythm: Sinus MEASUREMENTS (Male / Female) Normal Values Technical Quality:Fair 2D ECHO LVOT Diameter 2.1 cm LV Ejection Fraction MOD 4C 57.6 % LV Cardiac Index MOD 4C 1422.2 cm/minm LV Ejection Fraction 4C AL 57.9 % LV Cardiac Index 4C AL 1466.3 cm/minm M-MODE LV Diastolic Diameter MM 5.7 cm 4.2 - 5.9 / 3.9 - 5.3 cm LV Systolic Diameter MM 4.3 cm LV Ejection Fraction MM Teich 46.8 % LV Cardiac Index MM Teich 2781.4 cm/minm IVS Diastolic Thickness MM 1.2 cm 0.6 - 1.0 / 0.6 - 0.9 cm LVPW Diastolic Thickness MM 1.2 cm 0.6 - 1.0 / 0.6 - 0.9 cm LV Relative Wall Thickness MM 0.4 0.24 - 0.42 / 0.22 - 0.42 LV Mass Index MM 135.4 g/m 49 - 115 / 43 - 95 g/m Aortic Root Diameter MM 3.2 cm LA Systolic Diameter MM 3.1 cm LA Ao Ratio MM 1.0 AV Cusp Separation MM 1.7 cm DOPPLER AV Peak Velocity 137.0 cm/s AV Peak Gradient 7.5 mmHg LVOT Peak Velocity 109.0 cm/s LVOT Peak Gradient 4.8 mmHg AV Area Cont Eq pk 2.8 cm MV Area PHT 4.1 cm Mitral E Point Velocity 81.4 cm/s Mitral A Point Velocity 98.7 cm/s Mitral E to A Ratio 0.8 LV E' Lateral Velocity 8.8 cm/s Mitral E to LV E' Lateral Ratio 9.3 LV E' Septal Velocity 6.8 cm/s Mitral E to LV E' Septal Ratio 11.9 TR Peak Velocity 219.0 cm/s TR Peak Gradient 19.2 mmHg Right Atrial Pressure 10.0 mmHg Pulmonary Artery Systolic Pressu 29.2 mmHg Right Ventricular Systolic Press 29.2 mmHg FINDINGS LEFT VENTRICLE The left ventricular systolic function is normal with an estimated ejection fraction in the range of 55-60%. Normal left ventricular size. Wall thickness is normal. No regional wall motion abnormalities are present. RIGHT VENTRICLE Normal right ventricular size and systolic function. LEFT ATRIUM The left atrial size is normal. RIGHT ATRIUM The right atrial size is normal. ATRIAL SEPTUM Normal atrial septal thickness without atrial level shunting by limited color doppler interrogation. AORTA The aortic root and proximal ascending aorta are normal in size on limited imaging. MITRAL VALVE Structurally normal mitral valve. Trace mitral valve regurgitation. AORTIC VALVE Trileaflet aortic valve. Aortic valve sclerosis is present. TRICUSPID VALVE Structurally normal tricuspid valve. There is trace tricuspid valve regurgitation. The estimated pulmonary arterial pressure is 29.2 mmHg. PULMONARY VALVE No pulmonary valve regurgitation or stenosis. VESSELS The inferior vena cava is normal in size. PERICARDIUM No pericardial effusion. Prosper Farah MD (Electronically Signed) Final Date:11 Mar 2018 12:23
--- NOTE | 2018-03-11 12:43 | RADRPT ---
EXAM DATE: 03/11/2018 12:35 PM EDT AGE/SEX: 77 years / Male INDICATIONS: Evaluate for metastatic disease. CLINICAL DATA: This is the patient's initial encounter. Patient reports that signs and symptoms have been present for 1 day and indicates a pain score of 0/10. MEDICAL/SURGICAL HISTORY: Cardiovascular disease. Hypertension. Gastroesophageal reflux disease. Bladder cancer . Left hip replacement. RADIATION DOSE: 5.23 CTDI (mGy) COMPARISON: . TECHNIQUE: Multiple contiguous axial images were obtained through the chest during bolus infusion of 97 ml Omnipaque 350 (iohexol) nonionic water-soluble contrast as a cumulative dose for multiple exa ms. Images were obtained in suspended respiration using multiple row detector helical technique. U sing automated exposure control and adjustment of the mA and/or kV according to patient size, radiati on dose was kept as low as reasonably achievable to obtain optimal diagnostic quality images. FINDINGS: Lungs: There are scattered areas of chronic interstitial change which is mild. Linear scarring seen within the right apex. Calcified granuloma within the right base. No acute infiltrate. No mass.. Mediastinum: No evidence of mediastinal or hilar adenopathy/mass. The heart is normal in size. Coron michelle artery atherosclerotic calcifications are noted. The aorta and pulmonary arteries are normal in c aliber. Small homogeneously calcified lymph node within the right hilum. . Pleurae: No evidence of focal thickening or pleural effusion. Axillae: Unremarkable. Bony Structures: Unremarkable. Miscellaneous: See the CT of the abdomen and pelvis reported separately. CONCLUSION: 1. No acute intrathoracic abnormality. In particular, no CT evidence to suggest metastatic disease t o the chest. 2. Coronary artery atherosclerotic calcifications. 3. Mild chronic interstitial changes. 4. Prior granulomatous disease. Electronically signed by: Cristian Ford MD 03/11/2018 12:41 PM EDT
--- NOTE | 2018-03-11 12:50 | RADRPT ---
EXAM DATE: 03/11/2018 12:36 PM EDT AGE/SEX: 77 years / Male INDICATIONS: Evaluate for mass. CLINICAL DATA: This is the patient's initial encounter. Patient reports that signs and symptoms have been present for 1 day and indicates a pain score of 0/10. MEDICAL/SURGICAL HISTORY: Cardiovascular disease. Hypertension. Gastroesophageal reflux disea se. Bladder cancer. . Left hip replacement. ORAL CONTRAST: Prescribed oral contrast ingested. RADIATION DOSE: 5.23 CTDI (mGy) COMPARISON: MRI of the abdomen report February 09, 2011. TECHNIQUE: Multiple contiguous axial images were obtained through the abdomen and pelvis following b olus infusion of 97 ml Omnipaque 350 (iohexol) nonionic water-soluble contrast as a cumulative dose for multiple exams. Prescribed oral contrast ingested. Using automated exposure control and adjustm ent of the mA and/or kV according to patient size, the radiation dose was kept as low as reasonably a chievable to obtain optimal diagnostic quality images. FINDINGS: Lower Lungs: See the CT of the thorax dictated separately.. Liver: The liver has a homogeneous density without space-occupying lesion. Small scattered granulomat ous calcifications. There is no dilation of the biliary tree. Gallbladder is unremarkable. Spleen: Homogeneous density without enlargement. Small scattered granulomatous calcifications. Pancreas: Unremarkable without mass or calcification. Kidneys: Normal in size and shape. No evidence of mass or hydronephrosis. A 2 mm nonobstructing ston e involving the upper pole and lower pole of the left kidney. Adrenal Glands: There is a 1.2 cm nodule involving the lateral limb of the right adrenal gland. Robby nsfield units are 36. This is unchanged per the report from the prior MRI. Left adrenal gland is unre markable. Prior MRI report describes a left adrenal gland nodule. I'm not able to perceive this on is exam.. Aorta: The aorta and proximal iliac vessels are grossly unremarkable without aneurysmal dilation. Bowel/Mesentery: Scattered colonic diverticuli without acute inflammation. The bowel loops are gross ly unremarkable. The cecum and sigmoid colon have a normal configuration. Abdominal Wall: Intact. Retroperitoneum: No evidence of adenopathy in the retrocrural, para-aortic, or deep pelvic regions. Bladder: The urinary bladder is partially obscured by beam hardening artifact from the left hip pros thesis. No discrete mass is seen on this limited evaluation of the urinary bladder. No IV contrast is currently within the bladder lumen to aid in detection of a mass. No surrounding stranding of the ad jacent fat.. Reproductive Organs: No abnormal masses or calcifications seen. Inguinal: The inguinal region is unremarkable without evidence of adenopathy. Bony Structures: A total left hip prosthesis which generates beam hardening artifact obscuring some of the pelvis. There is a degenerative lumbar spine. No lytic or blastic lesions observed. A small sc lerotic focus involving the right aspect of the S1 level likely relating to a bone island.. CONCLUSION: 1. The evaluation of the urinary bladder is limited partly due to beam hardening artifact from a lef t hip prosthesis. I am not able to appreciate a discrete mass. 2. Prior granulomatous disease. 3. Small sclerotic focus involving the sacrum at the S1 level felt to relate to a bone island. 4. 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 5. 2 nonobstructing renal calculi on the left. Electronically signed by: Cristian Ford MD 03/11/2018 12:49 PM EDT
--- NOTE | 2018-03-11 13:59 | PD.CONS ---
History of Present Illness Service Infectious disease Consult Requested By Dr Natalya Ribera Reason for Consult Evaluate patient with ataxia, and a tick bite Primary Care Physician Lynne Encinas MD Diagnoses: History of Present Illness Patient seen and examined. Records reviewed. Patient is a 77-year-old male, presented to the hospital for evaluation of worsening balance, and multiple falls. His problems started around February 15 when he started experiencing balance problem. It usually occurs when he stands up from a sitting position, and occasionally he would have it from a lying down to a sitting up position. It has progressively worsened, that he had fallen at least 5 times. When he would have the imbalance sensation, he has lean in all different directions and has not really favored any side. He has seen his primary care physician, and had some initial workup, and he was supposed to be referred to a neurologist. There is been no loss of consciousness or sensation of blacking out. He denies any headache. He was referred to a rehab place to try and see if this is related to something in the inner ear but it really did not improve his symptoms. He has not had any fever chills or sweats. Patient used to be an active golfer, but since he had the balance problem the last time he played golf was probably about 3 weeks ago. He denies any blurring of vision or any double vision. When he presented to the emergency room he was found to have an engorged tick on his left side. He has not really noticed any tick bite prior to that. Patient has had multiple imaging studies as part of his neurological workup and they have all come back negative. This includes MRI of the brain, CT of the head, MRA head and neck, as well as CAT scan of the abdomen and pelvis as well as chest. He had Lyme antibody test that is currently pending. Infectious disease consultation has been requested to evaluate the patient with ataxia, and recent tick bite. Patient has been a [place] resident since the first part of 2002. He and his originally lived in [place], and they visit family frequently in [place]. The last time they were in [place] was in August 2017. Review of Systems Constitutional: COMPLAINS OF: Weight loss, DENIES: Fever, Chills, Night Sweats Eyes: DENIES: Eye pain, Vision loss, Photosensitivity, Double Vision Ears, nose, mouth, throat: DENIES: Nasal discharge, Oral lesions, Throat pain, Ear Pain, Sinus Pain Respiratory: DENIES: Cough, Shortness of breath Cardiovascular: DENIES: Chest pain, Palpitations, Syncope, Dyspnea on Exertion Gastrointestinal: DENIES: Abdominal pain, Diarrhea, Nausea, Vomiting, Difficulty Swallowing Genitourinary: DENIES: Urgency, Dysuria Musculoskeletal: COMPLAINS OF: Joint pain, DENIES: Stiffness, Joint Swelling Integumentary: DENIES: Pruritus, Rash Neurologic: COMPLAINS OF: Poor Balance, DENIES: Headache, Localized weakness Psychiatric: DENIES: Hallucinations Past Family Social History Allergies: Coded Allergies: cephalexin (Unverified Allergy, Severe, Hives, 03/09/18) Past Medical History Patient 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 Follows with urology yearly. GERD Hyperlipidemia Hypertension Hayfever Chronic idiopathic bilateral lower extremity neuropathy. 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 Active Ordered Medications Current Medications Medications (Trade) Dose Ordered Sig/Nancy Route Start Time Stop Time Status Last Admin (NS Flush) 2 ml UNSCH PRN IV FLUSH 03/09/18 18:00 (NS Flush) 2 ml BID IV FLUSH 03/09/18 21:00 03/11/18 08:36 (Narcan Inj) 0.4 mg UNSCH PRN IV PUSH 03/09/18 18:00 (Milk Of Magnesia Liq) 30 ml Q12H PRN PO 03/09/18 18:00 (Senokot) 17.2 mg Q12H PRN PO 03/09/18 18:00 (Dulcolax Supp) 10 mg DAILY PRN RECTAL 03/09/18 18:00 (Lactulose Liq) 30 ml DAILY PRN PO 03/09/18 18:00 (Protonix) 20 mg DAILY PO 03/10/18 09:00 03/10/18 08:56 Family History Mother with dementia. Father secondary to alcoholism Social History Non-smoker. Patient drinks 2 drinks per day. Denies illicit drugs. Physical Exam Vital Signs Vital Signs Date Time Temp Pulse Resp B/P (MAP) Pulse Ox O2 Delivery O2 Flow Rate FiO2 03/11/18 13:14 97.6 66 18 113/66 (82) 98 03/11/18 08:50 97.8 86 20 128/64 (85) 93 03/11/18 08:49 97.8 64 14 138/67 (90) 93 03/11/18 04:10 98.1 64 124/57 (79) 94 122/67 (85) 122/70 (87) 03/11/18 03:03 56 03/11/18 00:15 63 03/10/18 23:53 98.2 60 116/71 (86) 96 126/66 (86) 134/82 (99) 03/10/18 22:25 88 03/10/18 21:34 98.7 78 18 126/66 (86) 98 130/72 (91) 148/72 (97) 03/10/18 21:00 97.5 65 16 123/65 (84) 97 03/10/18 17:59 86 03/10/18 16:31 98.2 68 18 130/78 (95) 96 Physical Exam GENERAL: Patient is a well-nourished, well-developed male, awake and alert, not in respiratory distress. SKIN: Warm and dry. No generalized rash, no ecchymoses and no evidence of embolic lesions. The area of tick bite with small area of induration but significant redness noted HEAD: Atraumatic. Normocephalic. No temporal wasting, or tenderness. EYES: [place] conjunctiva. No petechia or hemorrhage. Pupils equal, round and reactive to light. Extraocular movements full and intact. No scleral icterus. No injection or drainage. EARS, NOSE AND THROAT: Nose without bleeding or purulent nasal discharge. No sinus tenderness. Mucous membranes pink and moist. No oral lesions noted. No exudate. No oral thrush. NECK: Trachea midline. Supple and not tender, no meningeal signs CARDIOVASCULAR: Regular rate and rhythm. No murmurs, rubs or gallops heard RESPIRATORY: Clear to auscultation. Breath sounds equal bilaterally. No rales , wheezing or rhonchi ABDOMEN: Soft, non-tender, nondistended. Bowel sounds present and normoactive. No guarding. No rebound. No organomegaly. EXTREMITIES: No clubbing, cyanosis, or edema.No joint effusion, has good ROM. No calf tenderness. Well perfused and warm. NEUROLOGICAL: Awake and alert. Cranial nerves grossly intact. Did not appreciate any significant nystagmus on exam. Able to do rapid alternating hand movements, as well as leg movements. PSYCHIATRIC: Normal affect, calm and cooperative. LINE: No evidence of infection Laboratory Laboratory Tests Test 03/10/18 14:45 03/11/18 13:10 Total Creatine Kinase 87 Troponin I LESS THAN 0.02 Triglycerides Level 186 Cholesterol Level 151 LDL Cholesterol 69 HDL Cholesterol 44.9 Cholesterol/HDL Ratio 3.36 Result Diagram: 03/10/18 0635 03/10/18 0635 Imaging RADIOLOGY STUDIES/FILMS REVIEWED Thoracic Spine MRI 03/11/18 0000 Signed Impressions: CONCLUSION: 1. Tiny right paracentral bulging T5-T6 2. Small right paracentral bulging T7-T8 3. Mild left lateral bulging at T10-T11 4. Mild degenerative changes. Chest CT 03/11/18 0000 Signed Impressions: CONCLUSION: 1. No acute intrathoracic abnormality. In particular, no CT evidence to sugges t metastatic disease to the chest. 2. Coronary artery atherosclerotic calcifications. 3. Mild chronic interstitial changes. 4. Prior granulomatous disease. Cervical Spine MRI 03/11/18 0000 Signed Impressions: CONCLUSION: 1. Unremarkable postcontrast images of the cervical spine. Abdomen/Pelvis CT 03/11/18 0000 Signed Impressions: CONCLUSION: 1. The evaluation of the urinary bladder is limited partly due to beam hardeni ng artifact from a left hip prosthesis. I am not able to appreciate a discrete mass. 2. Prior granulomatous disease. 3. Small sclerotic focus involving the sacrum at the S1 level felt to relate t o a bone island. 4. 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 5. 2 nonobstructing renal calculi on the left. Neck Magnetic Resonance Angiography 03/10/18 0806 Signed Impressions: CONCLUSION: Minimal proximal right ICA stenosis Percent stenosis is calculated using the diameter of the stenotic region over t he diameter of the normal distal internal carotid artery Head Magnetic Resonance Angiography 03/10/18 0806 Signed Impressions: CONCLUSION: No acute [place] vascular findings. Brain MRI 03/10/18 0806 Signed Impressions: CONCLUSION: No acute intracranial findings. Head CT 03/09/18 0000 Signed Impressions: CONCLUSION: 1. Senescent changes without acute intracranial abnormality. Assessment and Plan Assessment and Plan IMPRESSION Ataxia, ?etiology - work-up negative so far - had tick bite, though Lyme not common here in [place], and seems to have symptoms likely before the tick bit RECOMMENDATION Neuro work-up in progress Lyme Ab has been ordered - will follow results ?Tilt table test Thank you for this consultation Discussed Condition With Spoke with patient and Marce Connor MD March 11, 2018 13:59
[2018-03-12] VITALS: PULSE 55
[2018-03-12 00:54] VITALS: BP 140/77; PULSE 60; RESP 18; TEMP 97.7; O2SAT 95
[2018-03-12 05:15] VITALS: BP 146/78; PULSE 61; RESP 18; TEMP 97.6; O2SAT 98
[2018-03-12 08:01] VITALS: BP 152/74; PULSE 66; RESP 18; TEMP 97.6; O2SAT 94
--- NOTE | 2018-03-12 08:28 | HHI.PR ---
Subjective Remarks sr Objective Vital Signs Date Time Temp Pulse Resp B/P (MAP) Pulse Ox O2 Delivery O2 Flow Rate FiO2 03/12/18 08:01 97.6 66 18 152/74 (100) 94 03/12/18 05:15 97.6 61 18 146/78 (100) 98 03/12/18 00:54 97.7 60 18 140/77 (98) 95 03/12/18 00:00 55 03/11/18 20:22 97.7 70 16 115/56 (75) 97 03/11/18 17:12 98.2 55 16 140/80 (100) 97 03/11/18 16:40 64 03/11/18 13:14 97.6 66 18 113/66 (82) 98 03/11/18 08:50 97.8 86 20 128/64 (85) 93 03/11/18 08:49 97.8 64 14 138/67 (90) 93 I/O 03/11/18 03/11/18 03/11/18 03/12/18 03/12/18 03/12/18 07:00 15:00 23:00 07:00 15:00 23:00 Output Total 600 ml Balance -600 ml Output Urine Total 600 ml Result Diagram: 03/10/18 0635 03/10/18 0635 Objective Remarks mild weak left fdi some erythema left side at bite mild looks better axial ataxic gait hallpike neg ataxic bilat f to nose this am no nystag dtr absent but hx of that Assessment and Plan Assessment and Plan imp mri/a/a neg labs ok still very ataxic gait axial ataxia cbllm looks ok on mri r ventral medulla ? enhance ? soft call ow neg i think not real probably plan mri c spine neg check ct chest for any tumor or paraneoplastic consider LP for gbs variant mr t spine paraneo labs MED TEAM VERIFY TELE IS SR VS AFIB PLZ oob 03/12/18 looks more ataxic this am ct castro dnabd pelsis neg mri c and t neg plan is labs repeat mri brain look at r medulla LP for any gbs variant consider rx ceftriaxone with tick after LP lyme pend id note seen standing bp fine progressiveataxia paraneo labs pend unusual case Mickey Mata MD March 12, 2018 08:28
[2018-03-12] MEDS: SODIUM CHLORIDE 0.9% FLUSH 10 ML FLUSH IV FLUSH SCH (08:30)
[2018-03-12] MEDS: PANTOPRAZOLE SOD 20 MG DELAYED RELEASE TAB PO SCH (08:30)
[2018-03-12] MEDS ORDERED: GADODIAMIDE PF 287 MG/ML 20 ML VIAL (for RAD MRI) IVCONTRAST ONE (09:15)
--- NOTE | 2018-03-12 09:31 | RADRPT ---
EXAM DATE: 03/12/2018 9:20 AM EDT AGE/SEX: 77 years / Male INDICATIONS: . Inability to ambulate. CLINICAL DATA: This is the patient's initial encounter. Patient reports that signs and symptoms have been present for 3 days and indicates a pain score of 0/10. MEDICAL/SURGICAL HISTORY: Carcinoma, bladder. Hypertension. Lobectomy. Discectomy, lumbar. Le ft hip replacement. [place] [facility] [place] & W/O CONTRAST[place] 03/10/2018. . TECHNIQUE: Multiplanar, multisequence examination of the brain was performed without and with 16 ml O mniscan (gadodiamide) contrast as a single exam dose. FINDINGS: Cerebrum: The ventricles are normal for age. No evidence of midline shift, mass lesion, hemorrhage or acute infarction. No extraaxial fluid collections are seen. The pituitary gland and suprasellar cistern are normal in configuration. No significant changes are seen compared to the prior study. White Matter: No significant signal abnormalities are seen in the white matter. Stable compared to [facility] prior study. Posterior Fossa: The cerebellum and brainstem are intact. The 4th ventricle is midline. The cerebel lopontine angle is unremarkable. The cerebellar tonsils are normal in position. Stable compared to t prior exam Diffusion Imaging: No focal areas of restricted diffusion are seen. No evidence of acute infarction . Extracranial: The visualized portions of the orbits are unremarkable. There continues to be chronic sinus disease in the right maxillary sinus. There is a 1.9 cm mucous retention cyst along the base of the right maxillary sinus. No significant change. Post Contrast: No abnormal areas of parenchymal or dural enhancement. No evidence of blood-brain ba rrier breakdown. No focal or enhancing lesions are demonstrated. No significant change. CONCLUSION: 1. Unremarkable and stable follow-up MRI of the brain compared to the prior examination. 2. 1.9 cm mucous retention cyst in the base of the right maxillary sinus. Electronically signed by: Richard Hein MD 03/12/2018 9:29 AM EDT
[2018-03-12 11:04] LABS: HEMATOCRIT 44.5 % (39.0-51.0); HEMOGLOBIN 15.1 GM/DL (13.0-17.0); MEAN CELL VOLUME 91.9 FL (80.0-100.0); MEAN CORPUSCULAR HEMOGLOBIN 31.2 PG (27.0-34.0); MEAN PLATELET VOLUME 7.9 FL (7.0-11.0); PLATELET COUNT 186 TH/MM3 (150-450); RED BLOOD COUNT 4.85 MIL/MM3 (4.50-5.90); RED CELL DISTRIBUTION WIDTH 13.6 % (11.6-17.2); WHITE BLOOD COUNT 5.8 TH/MM3 (4.0-11.0)
[2018-03-12 12:17] VITALS: BP 130/66; PULSE 66; RESP 18; TEMP 97.6; O2SAT 95
--- NOTE | 2018-03-12 13:15 | EKG ---
Date Performed: 03/11/2018 Time Performed: 11:17:11 PTAGE: 77 years EKG: Sinus rhythm MARKED LEFT AXIS DEVIATION ABNORMAL ECG Compared to PREVIOUS TRACING , R-wave in V2 and V3 have improved. PREVIOUS TRACIN03/09/2018 11.35 DOCTOR: Rodney Phillip Interpretating Date/Time 03/12/2018 13:15:05
--- NOTE | 2018-03-12 13:35 | HHI.PR ---
Subjective Remarks Patient reports he has no problem laying down or sitting up. However he still has significant ataxia and unable to ambulate. Significant fear of falling. Discussed with his at bedside. He has fallen a few times at home. Objective Vitals Vital Signs Date Time Temp Pulse Resp B/P (MAP) Pulse Ox O2 Delivery O2 Flow Rate FiO2 03/12/18 12:17 97.6 66 18 130/66 (87) 95 03/12/18 08:01 97.6 66 18 152/74 (100) 94 03/12/18 05:15 97.6 61 18 146/78 (100) 98 03/12/18 00:54 97.7 60 18 140/77 (98) 95 03/12/18 00:00 55 03/11/18 20:22 97.7 70 16 115/56 (75) 97 03/11/18 17:12 98.2 55 16 140/80 (100) 97 03/11/18 16:40 64 I/O 03/11/18 03/11/18 03/11/18 03/12/18 03/12/18 03/12/18 07:00 15:00 23:00 07:00 15:00 23:00 Output Total 600 ml Balance -600 ml Output Urine Total 600 ml Result Diagram: 03/12/18 1040 03/10/18 0635 Objective Remarks GENERAL: This is a well-nourished, well-developed patient, in no apparent distress. CARDIOVASCULAR: Normal rate and regular rhythm without murmurs, gallops, or rubs. RESPIRATORY: Good respiratory efforts. Breath sounds equal and clear to auscultation bilaterally. GASTROINTESTINAL: Abdomen soft, non-tender, non-distended. Normal active bowel sounds MUSCULOSKELETAL: Extremities without cyanosis, or edema. NEURO: Alert & Oriented x4 to person, place, time, situation. Moves all ext x4. Gait not tested for safety. PSYCH: Appropriate mood and affect. Procedures none A/P Problem List: (1) Ataxia ICD Code: R27.0 - Ataxia, unspecified Status: Acute Assessment and Plan 77-year-old male with: Ataxia, onset over the past month, worsening. This is persistent, etiology to be determined. Patient was found to have a tick bite on admission Generalized weakness Unsafe to go home = Patient and both states it is unsafe to go home at this time. He has been falling at home. Fall precautions = PT recommends inpatient rehab = F/U copper levels, SPEP, RPR and lyme titer = Neurology ff. Repeat MRI negative. Patient has underwent extensive imaging workup negative. Lumbar puncture and Paraneoplastic labs have been ordered Appreciate ID following. Lyme Ab has been ordered - follow results Symptoms seems to have started prior to tick bite. Diagnosis is uncertain at this time and there are multiple sent out labs ordered. GERD. Chronic. Continue PPI. Hyperlipidemia. Continue statin. Chronic allergies. Resume antihistamine. Recent subjective weight loss. Patient reports decreased oral intake and has not been active. Hypertension. Blood pressure variable. Not orthostatic DVT proph with SCd and early ambulation Mello Cox MD March 12, 2018 13:35
[2018-03-12 21:02] VITALS: BP 120/63; PULSE 65; RESP 18; TEMP 98.2; O2SAT 96
[2018-03-13] VITALS (7 sets, daily range): BP systolic 122–135; BP diastolic 62–69; PULSE 63–92; RESP 16–18; TEMP 97.8–98.4; O2SAT 93–98
[2018-03-13] MEDS: SODIUM CHLORIDE 0.9% FLUSH 10 ML FLUSH IV FLUSH SCH ×2 (09:00→20:49)
[2018-03-13] MEDS: PANTOPRAZOLE SOD 20 MG DELAYED RELEASE TAB PO SCH (10:20)
[2018-03-13] MEDS: LORATADINE 10 MG TAB PO SCH (10:21)
--- NOTE | 2018-03-13 11:49 | HHI.PR ---
Subjective Remarks Patient has persistent ataxia. He is observed using the walker but still require a lot of assistance and cannot ambulate by himself. He states his symptoms has not improved but did not get worse. Objective Vitals Vital Signs Date Time Temp Pulse Resp B/P (MAP) Pulse Ox O2 Delivery O2 Flow Rate FiO2 03/13/18 08:00 98.4 63 16 131/62 (85) 98 03/13/18 04:19 98.0 65 18 134/69 (90) 98 03/13/18 01:14 97.8 67 18 122/68 (86) 94 03/12/18 21:02 98.2 65 18 120/63 (82) 96 03/12/18 12:17 97.6 66 18 130/66 (87) 95 I/O 03/12/18 03/12/18 03/12/18 03/13/18 03/13/18 03/13/18 07:00 15:00 23:00 07:00 15:00 23:00 Output Total 600 ml Balance -600 ml Output Urine Total 600 ml # Voids 2 Result Diagram: 03/12/18 1040 03/10/18 0635 Objective Remarks GENERAL: This is a well-nourished, well-developed patient, in no apparent distress. CARDIOVASCULAR: Normal rate and regular rhythm without murmurs, gallops, or rubs. RESPIRATORY: Good respiratory efforts. Breath sounds equal and clear to auscultation bilaterally. GASTROINTESTINAL: Abdomen soft, non-tender, non-distended. Normal active bowel sounds MUSCULOSKELETAL: Extremities without cyanosis, or edema. NEURO: Alert & Oriented x4 to person, place, time, situation. Moves all ext x4. Strength equal. Ataxic gait, require 1 person assist with walker. PSYCH: Appropriate mood and affect. Procedures none A/P Problem List: (1) Ataxia ICD Code: R27.0 - Ataxia, unspecified Status: Acute Assessment and Plan 77-year-old male with: Ataxia, onset over the past month, worsening. This is persistent, etiology to be determined. Patient was found to have a tick bite on admission Generalized weakness Unsafe to go home = Patient and both states it is unsafe to go home at this time. He has been falling at home. Fall precautions = PT recommends inpatient rehab = F/U copper levels, SPEP, RPR and lyme titer = Neurology ff. Repeat MRI negative. Patient has underwent extensive imaging workup negative. Lumbar puncture and Paraneoplastic labs have been ordered Appreciate ID following. Lyme Ab has been ordered - follow results Symptoms seems to have started prior to tick bite. Diagnosis is uncertain at this time and there are multiple sent out labs ordered. Will ask [facility] to evaluate him. GERD. Chronic. Continue PPI. Hyperlipidemia. Continue statin. Chronic allergies. Resume antihistamine. Recent subjective weight loss. Patient reports decreased oral intake and has not been active. Hypertension. Blood pressure variable. Not orthostatic DVT proph with SCd and early ambulation Mello Cox MD March 13, 2018 11:49
--- NOTE | 2018-03-13 12:45 | HHI.PR ---
Subjective Remarks sr Objective Vital Signs Date Time Temp Pulse Resp B/P (MAP) Pulse Ox O2 Delivery O2 Flow Rate FiO2 03/13/18 08:00 98.4 63 16 131/62 (85) 98 03/13/18 04:19 98.0 65 18 134/69 (90) 98 03/13/18 01:14 97.8 67 18 122/68 (86) 94 03/12/18 21:02 98.2 65 18 120/63 (82) 96 I/O 03/12/18 03/12/18 03/12/18 03/13/18 03/13/18 03/13/18 07:00 15:00 23:00 07:00 15:00 23:00 Output Total 600 ml Balance -600 ml Output Urine Total 600 ml # Voids 2 Result Diagram: 03/12/18 1040 03/10/18 0635 Objective Remarks mild weak left fdi some erythema left side at bite mild looks better axial ataxic gait hallpike neg ataxic bilat f to nose this am no nystag dtr absent but hx of that 03/13/18 still ataxic heel to [place] today areflexic 02/18 Assessment and Plan Assessment and Plan imp mri/a/a neg labs ok still very ataxic gait axial ataxia cbllm looks ok on mri r ventral medulla ? enhance ? soft call ow neg i think not real probably plan mri c spine neg check ct chest for any tumor or paraneoplastic consider LP for gbs variant mr t spine paraneo labs MED TEAM VERIFY TELE IS SR VS AFIB PLZ oob 03/12/18 looks more ataxic this am ct castro dnabd pelsis neg mri c and t neg plan is labs repeat mri brain look at r medulla LP for any gbs variant consider rx ceftriaxone with tick after LP lyme pend id note seen standing bp fine progressiveataxia paraneo labs pend unusual case 03/13/18 repeat brain mri no enhancement nor abn r medulla plan is LP and then prob pex i dw him and family Mickey Mata MD March 13, 2018 12:45
[2018-03-13 21:45] LABS: ALB/GLOB RATIO (SPE) 1.78 (1.39-2.23)
[2018-03-14] VITALS (9 sets, daily range): BP systolic 116–149; BP diastolic 62–75; PULSE 61–80; RESP 17–20; TEMP 97.6–98.4; O2SAT 94–97
[2018-03-14] MEDS: PANTOPRAZOLE SOD 20 MG DELAYED RELEASE TAB PO SCH (08:32)
[2018-03-14] MEDS: SODIUM CHLORIDE 0.9% FLUSH 10 ML FLUSH IV FLUSH SCH ×2 (08:32→20:27)
[2018-03-14] MEDS: LORATADINE 10 MG TAB PO SCH (08:32)
--- NOTE | 2018-03-14 10:00 | PD.RAD ---
Post Procedure Progress Note Procedure Date: March 14, 2018 Supervising Radiologist: Pardeep Quevedo Proceduralist/Assist: Leroy Beatty, RT(R), Ezra Yu RT(R) Anesthesia: Local Plan of Activity Patient to Unit: Nursing Unit Patient Condition: Good See PACS Report for procedural detail/treatment Pardeep Quevedo MD March 14, 2018 10:00
--- NOTE | 2018-03-14 10:32 | RADRPT ---
EXAM DATE: 03/14/2018 10:28 AM EDT AGE/SEX: 77 years / Male INDICATIONS: Patient presents with worsening ataxia in need of lumbar puncture for evaluation. CLINICAL DATA: This is the patient's initial encounter. Patient reports that signs and symptoms have been present for 4 - 6 days and indicates a pain score of 0/10. MEDICAL/SURGICAL HISTORY: Hypertension. Gastroesophageal reflux disease. Patient reports histo ry of nonmetastatic bladder tumor.HyperlipidemiaHayfeverChronic idiopathic bilateral lower extremity neuropathy . Left hip surgeryCataract surgeryPartial lung lobectomy secondary to histoplasmosis infe ction.Multiple cystoscopies with bladder tumors removed. COMPARISON: No prior [facility] exams available for comparison. FLUORO TIME (min): 0.6 IMAGE SERIES: 1 ACCESS SITE: L3-4 LUMBAR PUNCTURE TIME: 0945 hours FLUID: Total volume of 10.5 cc of Clear fluid was removed. Fluid was sent to lab for ordered studies. . . PROCEDURE: 1. Fluoroscopic guided lumbar puncture. The risks, benefits and alternatives to the procedure were explained and verbal and written consent w as obtained. The site was prepped in sterile fashion. Full sterile technique was used, including ca p, mask, sterile gloves and gown and a large sterile sheet. Hand hygiene and 2% chlorhexidine and/or betadine/alcohol prep was utilized per protocol for cutaneous antisepsis. The skin and subcutaneous tissues were infiltrated with local anesthetic solution. With fluoroscopic guidance the lumbar thecal sac was punctured at the level above. The fluid describ ed above was removed without difficulty. The patient tolerated the procedure well and there were no complications. CONCLUSION: 1. Uncomplicated fluoroscopically guided lumbar puncture. Electronically signed by: Pardeep Quevedo MD 03/14/2018 10:31 AM EDT
[2018-03-14 11:03] LABS: TOTAL PROTEIN,CSF 58.2 MG/DL (15.0-45.0)
--- NOTE | 2018-03-14 11:18 | HHI.PR ---
Subjective Remarks Patient reports he is feeling the same. Ataxia persisting. Had LP today. Objective Vitals Vital Signs Date Time Temp Pulse Resp B/P (MAP) Pulse Ox O2 Delivery O2 Flow Rate FiO2 03/14/18 10:59 63 03/14/18 09:34 97.7 66 20 145/75 (98) 97 03/14/18 04:00 98.3 78 18 116/62 (80) 96 03/14/18 00:00 97.6 68 18 129/72 (91) 94 03/13/18 20:00 97.8 66 18 128/69 (88) 93 03/13/18 16:00 72 03/13/18 16:00 69 18 135/67 (89) 97 03/13/18 12:00 78 I/O 03/13/18 03/13/18 03/13/18 03/14/18 03/14/18 03/14/18 07:00 15:00 23:00 07:00 15:00 23:00 # Voids 3 Result Diagram: 03/12/18 1040 03/10/18 0635 Objective Remarks GENERAL: This is a well-nourished, well-developed patient, in no apparent distress. CARDIOVASCULAR: Normal rate and regular rhythm without murmurs, gallops, or rubs. RESPIRATORY: Good respiratory efforts. Breath sounds equal and clear to auscultation bilaterally. GASTROINTESTINAL: Abdomen soft, non-tender, non-distended. Normal active bowel sounds MUSCULOSKELETAL: Extremities without cyanosis, or edema. NEURO: Alert & Oriented x4 to person, place, time, situation. Moves all ext x4. Strength equal. Ataxic gait, require 1 person assist with walker. PSYCH: Appropriate mood and affect. Procedures none A/P Problem List: (1) Ataxia ICD Code: R27.0 - Ataxia, unspecified Status: Acute Assessment and Plan 77-year-old male with: Ataxia, onset over the past month, worsening. This is persistent, etiology to be determined. Patient was found to have a tick bite on admission Generalized weakness Unsafe to go home = Patient and both states it is unsafe to go home at this time. He has been falling at home. Fall precautions = PT recommends inpatient rehab = F/U copper levels, SPEP, RPR and lyme titer = Neurology ff. Repeat MRI negative. Patient has underwent extensive imaging workup negative. Lumbar puncture and Paraneoplastic labs have been ordered Appreciate ID following. Lyme Ab has been ordered - follow results Symptoms seems to have started prior to tick bite. Diagnosis is uncertain at this time and there are multiple sent out labs ordered. I asked leos and rehab medicine to evaluate him. Neurology considering plasma exchange GERD. Chronic. Continue PPI. Hyperlipidemia. Continue statin. Chronic allergies. Resume antihistamine. Recent subjective weight loss. Patient reports decreased oral intake and has not been active. Hypertension. Blood pressure variable. Not orthostatic DVT proph with SCd and early ambulation Discharge Planning [facility] [place] to evaluate. Workup ongoing. Mello Cox MD March 14, 2018 11:18
[2018-03-14 11:39] LABS: CSF EOSINOPHILS 2 %; CSF LYMPHOCYTES 36 %; CSF MONOCYTES 22 %; CSF NEUTROPHILS 40 %
[2018-03-14 11:43] LABS: CSF LYMPHOCYTES 40 %; CSF MONOCYTES 25 %; CSF NEUTROPHILS 35 %
[2018-03-14 12:14] LABS: RBC TUBE #1 1505 /MM3; WBC TUBE #1 5 /MM3 (0-10)
[2018-03-14 12:18] LABS: RBC TUBE #4 555 /MM3; WBC TUBE #4 2 /MM3 (0-10)
[2018-03-14 12:21] LABS: SUPERNATE COLOR TUBE #1 CLEAR (CLEAR)
[2018-03-14 12:22] LABS: SUPERNATE COLOR TUBE #1 CLEAR (CLEAR)
[2018-03-15] VITALS (8 sets, daily range): BP systolic 129–162; BP diastolic 70–78; PULSE 57–87; RESP 16–20; TEMP 97–98; O2SAT 95–97
--- NOTE | 2018-03-15 07:54 | HHI.PR ---
Subjective Remarks sr Objective Vital Signs Date Time Temp Pulse Resp B/P (MAP) Pulse Ox O2 Delivery O2 Flow Rate FiO2 03/15/18 04:00 97.2 62 18 139/75 (96) 95 03/15/18 00:00 98.0 57 18 142/74 (96) 95 03/14/18 23:57 61 03/14/18 20:00 98.3 61 18 146/75 (98) 94 03/14/18 18:03 80 03/14/18 16:00 98.4 65 18 126/68 (87) 97 03/14/18 16:00 98.4 65 18 126/68 (87) 97 03/14/18 12:00 97.8 71 17 149/67 (94) 97 03/14/18 10:59 63 03/14/18 09:34 97.7 66 20 145/75 (98) 97 I/O 03/14/18 03/14/18 03/14/18 03/15/18 03/15/18 03/15/18 07:00 15:00 23:00 07:00 15:00 23:00 Intake Total 650 ml Output Total 400 ml Balance 250 ml Intake Oral 650 ml Output Urine Total 400 ml # Voids 3 3 3 # Bowel Movements 1 Result Diagram: 03/12/18 1040 Objective Remarks mild weak left fdi some erythema left side at bite mild looks better axial ataxic gait hallpike neg ataxic bilat f to nose this am no nystag dtr absent but hx of that 03/13/18 still ataxic heel to [place] today areflexic 02/18 / hallpike neg / unsteady gait02/18 / Assessment and Plan Assessment and Plan imp mri/a/a neg labs ok still very ataxic gait axial ataxia cbllm looks ok on mri r ventral medulla ? enhance ? soft call ow neg i think not real probably plan mri c spine neg check ct chest for any tumor or paraneoplastic consider LP for gbs variant mr t spine paraneo labs MED TEAM VERIFY TELE IS SR VS AFIB PLZ oob 03/12/18 looks more ataxic this am ct castro dnabd pelsis neg mri c and t neg plan is labs repeat mri brain look at r medulla LP for any gbs variant consider rx ceftriaxone with tick after LP lyme pend id note seen standing bp fine progressiveataxia paraneo labs pend unusual case 03/13/18 repeat brain mri no enhancement nor abn r medulla plan is LP and then prob pex i dw him and family - 03/15/18 csf prot min up ow neg lyme neg try pex Mickey Mata MD March 15, 2018 07:54
[2018-03-15] MEDS: PANTOPRAZOLE SOD 20 MG DELAYED RELEASE TAB PO SCH (07:57)
[2018-03-15] MEDS: LORATADINE 10 MG TAB PO SCH (07:57)
[2018-03-15] MEDS: SODIUM CHLORIDE 0.9% FLUSH 10 ML FLUSH IV FLUSH SCH (07:58)
[2018-03-15 10:15] LABS: HSV 1,PCR Negative (Negative)
--- NOTE | 2018-03-15 10:53 | RADRPT ---
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 CLINICAL DATA: This is the patient's initial encounter. Patient reports that signs and symptoms have been present for 4 - 6 days and indicates a pain score of 0/10. MEDICAL/SURGICAL HISTORY: Gastroesophageal reflux disease. Hypertension. Hypercholesterolemia . HayfeverChronic idiopathic bilateral lower extremity neuropathyBladder tumor Left hip surgeryParti al lung lobectomyCystoscopy COMPARISON: No prior Walker exams available for comparison. FLUORO TIME (min): 0.07 IMAGE SERIES: 1 ACCESS SITE: Right internal jugular vein DEVICE(S): 14 [place] double lumen X15CM Schon catheter PROCEDURE : 1. Ultrasound guided venipuncture. 2. Fluoroscopic guidance. 3. Central line placement. The risks, benefits and alternatives to the procedure were explained and verbal and written consent w as obtained. The site was prepped in sterile fashion. Full sterile technique was used, including ca p, mask, sterile gloves and gown and a large sterile sheet. Hand hygiene and 2% chlorhexidine prep w as utilized per protocol for cutaneous antisepsis with appropriate dry time for site. Sterile gel an d sterile probe cover were utilized for ultrasound guidance. The skin and subcutaneous tissues were infiltrated with local anesthetic solution. A suitable site a princess the vein was selected with ultrasound and fluoroscopic guidance. A small incision was made. Th e vein was accessed under direct ultrasound visualization using the micropuncture technique. The becka ropuncture set was exchanged for a 0.035 wire. The tract was dilated. The catheter was advanced int o position under direct fluoroscopic visualization, and was advanced with the tip at the junction of the superior vena cava and rt atrium. The catheter was fixed in place with suture and a sterile dres sing was applied. The patient tolerated the procedure well and there were no complications. CONCLUSION: 1. Uncomplicated line placement as above. Electronically signed by: Pardeep Quevedo MD 03/15/2018 10:51 AM EDT
[2018-03-15 14:20] LABS: MYCOPLASMA PNEUMONIAE IGG Positive (Negative); MYCOPLASMA PNEUMONIAE IGM Negative (Negative)
--- NOTE | 2018-03-15 16:17 | HHI.PR ---
Subjective Remarks Patient reports he is feeling okay. Ataxia is unchanged. Objective Vitals Vital Signs Date Time Temp Pulse Resp B/P (MAP) Pulse Ox O2 Delivery O2 Flow Rate FiO2 03/15/18 12:02 98.0 68 18 162/74 (103) 95 03/15/18 11:28 77 03/15/18 08:00 97.3 87 20 129/78 (95) 95 03/15/18 04:00 97.2 62 18 139/75 (96) 95 03/15/18 00:00 98.0 57 18 142/74 (96) 95 03/14/18 23:57 61 03/14/18 20:00 98.3 61 18 146/75 (98) 94 03/14/18 18:03 80 I/O 03/14/18 03/14/18 03/14/18 03/15/18 03/15/18 03/15/18 07:00 15:00 23:00 07:00 15:00 23:00 Intake Total 650 ml Output Total 400 ml Balance 250 ml Intake Oral 650 ml Output Urine Total 400 ml # Voids 3 3 3 # Bowel Movements 1 Result Diagram: 03/12/18 1040 Objective Remarks GENERAL: This is a well-nourished, well-developed patient, in no apparent distress. CARDIOVASCULAR: Normal rate and regular rhythm without murmurs, gallops, or rubs. RESPIRATORY: Good respiratory efforts. Breath sounds equal and clear to auscultation bilaterally. GASTROINTESTINAL: Abdomen soft, non-tender, non-distended. Normal active bowel sounds MUSCULOSKELETAL: Extremities without cyanosis, or edema. NEURO: Alert & Oriented x4 to person, place, time, situation. Moves all ext x4. Strength equal. Ataxic gait, require 1 person assist with walker. PSYCH: Appropriate mood and affect. Procedures none A/P Problem List: (1) Ataxia ICD Code: R27.0 - Ataxia, unspecified Status: Acute Assessment and Plan 77-year-old male with: Ataxia, onset over the past month, worsening. This is persistent, etiology to be determined. Patient was found to have a tick bite on admission Generalized weakness Unsafe to go home = Patient and both states it is unsafe to go home at this time. He has been falling at home. Fall precautions = PT recommends inpatient rehab = F/U copper levels, SPEP, RPR and lyme titer = Neurology ff. Repeat MRI negative. Patient has underwent extensive imaging workup negative. Lumbar puncture and Paraneoplastic labs have been ordered Appreciate ID following. Lyme Ab has been ordered - Neg Symptoms seems to have started prior to tick bite. Diagnosis is uncertain at this time and there are multiple sent out labs ordered. Neurology recommended plasma exchange and Hematology was consulted. Vas cath placed/ GERD. Chronic. Continue PPI. Hyperlipidemia. Continue statin. Chronic allergies. Resume antihistamine. Recent subjective weight loss. Patient reports decreased oral intake and has not been active. Hypertension. Blood pressure variable. Not orthostatic DVT proph with SCd and early ambulation Discharge Planning [place] to evaluate. Workup ongoing. Plasma exchange per Neurology. Mello Cox MD March 15, 2018 16:17
--- NOTE | 2018-03-15 20:37 | MB ---
cc: Jeaneth Valdes MD, Ruby Anne E MD McDonald,Mickey Monahan MD DATE: 03/15/2018 REFERRING PHYSICIAN: Dr. Mickey Mata. CHIEF COMPLAINT: Dr. Mata requests a consultation for Mr. 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 HISTORY OF PRESENT ILLNESS: Mr. Kc is a 77-year-old man with history of noninvasive bladder cancer. He presented with 2-3 week history of vertigo. He has had several falls. He presents with ataxia. He was admitted to [facility] with worsening symptoms on 03/09/2018. He had an extensive workup and ordered CT scan of the head that showed senescent changes. Cervical spine MRI shows broad-based posterior disc bulges between C3 and C7. There is no cord compression or cord edema. MRA of the neck shows minimal proximal right internal carotid artery stenosis. MRA shows no acute [place] of [place] vascular findings. Brain MRI shows no acute intracranial findings. MRI of the thoracic spine shows degenerative changes. Chest CT shows mild chronic interstitial changes prior granulomatous disease. He has a history of histoplasmosis. Repeat brain MRI shows a 1.9 cm mucous retention cyst, unremarkable and stable followup MRI. Additional workup including an LP that showed slight elevation in total protein. 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 Lyme disease evaluation was negative. Paraneoplastic labs are still pending. His case is rather unusual. Plasmapheresis was discussed with the patient by neurology. Hematology/Oncology is consulted for the above. REVIEW OF SYSTEMS: Mr. Kc denies any fevers, chills, night sweats. He was working up to the time of developing the above. He has essentially a negative review of system. However, now he cannot walk. PAST MEDICAL HISTORY: 1. Noninvasive bladder cancer. 2. Histoplasmosis. 3. Gastroesophageal reflux disease. 4. Hyperlipidemia. 5. Hypertension. 6. Chronic idiopathic lower extremity neuropathy. PAST SURGICAL HISTORY: Left hip surgery, cataract surgery, partial right lung lobectomy secondary to histoplasmosis, cystoscopy. FAMILY HISTORY: Mother has dementia. Father of alcoholism. SOCIAL HISTORY: He is , lives with his . He drinks 2 drinks per day. He denies any tobacco or illicit drug use. ALLERGIES: CEPHALEXIN. CURRENT MEDICATIONS: 1. Loratadine. 2. Protonix. PHYSICAL EXAMINATION: VITAL SIGNS: Temperature 97.4, heart rate 67, respiratory rate 16, blood pressure 136/71, saturation 97%. GENERAL: Mr. Kc is a well-developed, well-nourished, elderly man lying in bed. He appears down and depressed at his situation. NECK: Right neck vas-cath is in place. LUNGS: Clear to auscultation. CARDIOVASCULAR: Reveals a normal rate and rhythm. ABDOMEN: Benign. MUSCULOSKELETAL: No edema. NEUROLOGIC: Showed mild left weakness. He stayed in bed. LABORATORY DATA: CBC, serum protein electrophoresis, comprehensive metabolic panel are normal. ASSESSMENT AND PLAN: Mr. Kc is a 77-year-old man with a presentation of dizziness, history of chronic peripheral neuropathy who developed ataxia to the point that he is unable to walk. He has persistent neurologic symptoms. Cerebrospinal fluid shows a mild increase in total protein. Plasmapheresis was recommended by neurology. Hematology/Oncology is consulted to provide treatment. Risks and benefits of treatment was discussed. Mr. Kc had no questions as they have all been previously described and explained by Dr. Mata. We will coordinate his treatment likely in an early set at 8 a.m., His questions were answered to his satisfaction.. MD FELICITA Mensah/ , 08:04 PM , 08:35 PM
[2018-03-15 23:51] LABS: PURKINJE CELL (YO) AB NEGATIVE (NEGATIVE); YO WESTBLOT ND (NEGATIVE)
[2018-03-16] VITALS (9 sets, daily range): BP systolic 125–158; BP diastolic 66–76; PULSE 56–105; RESP 17–20; TEMP 97.1–98; O2SAT 94–99
[2018-03-16] MEDS: PANTOPRAZOLE SOD 20 MG DELAYED RELEASE TAB PO SCH (07:44)
[2018-03-16] MEDS: SODIUM CHLORIDE 0.9% FLUSH 10 ML FLUSH IV FLUSH SCH ×3 (07:44→21:00)
[2018-03-16] MEDS: LORATADINE 10 MG TAB PO SCH (07:44)
[2018-03-16] MEDS ORDERED: HEPARIN SODIUM - 1000 UNITS/ML 10 ML VIAL IV FLUSH PRN (08:00)
[2018-03-16] MEDS ORDERED: diphenhydrAMINE HCL 50 MG/ML VIAL IV PUSH PRN (08:00)
[2018-03-16] MEDS ORDERED: CALCIUM CARBONATE 500 MG CHEWABLE TAB PO PRN (08:00)
[2018-03-16] MEDS ORDERED: SODIUM CHLOR 0.9% 1000 ML IV SCH (08:00)
--- NOTE | 2018-03-16 08:13 | HHI.PR ---
Subjective Remarks sr Objective Vital Signs Date Time Temp Pulse Resp B/P (MAP) Pulse Ox O2 Delivery O2 Flow Rate FiO2 03/16/18 08:01 97.9 62 20 158/76 (103) 99 03/16/18 05:11 59 03/16/18 03:15 98.0 67 17 126/68 (87) 97 03/16/18 00:00 98.0 69 17 125/66 (85) 96 03/16/18 00:00 56 03/15/18 22:00 66 03/15/18 20:00 97.0 70 16 130/70 (90) 95 03/15/18 16:00 97.4 67 16 136/71 (92) 97 03/15/18 12:02 98.0 68 18 162/74 (103) 95 03/15/18 11:28 77 I/O 03/15/18 03/15/18 03/15/18 03/16/18 03/16/18 03/16/18 07:00 15:00 23:00 07:00 15:00 23:00 Intake Total 650 ml 725 ml Balance 650 ml 725 ml Intake Oral 650 ml 725 ml # Voids 3 1 3 # Bowel Movements 0 0 Result Diagram: 03/12/18 1040 Objective Remarks mild weak left fdi some erythema left side at bite mild looks better axial ataxic gait hallpike neg ataxic bilat f to nose this am no nystag dtr absent but hx of that 03/13/18 still ataxic heel to [place] today areflexic 02/18 / hallpike neg / unsteady gait02/18 03/16/18 feels overall ok line in Assessment and Plan Assessment and Plan imp mri/a/a neg labs ok still very ataxic gait axial ataxia cbllm looks ok on mri r ventral medulla ? enhance ? soft call ow neg i think not real probably plan mri c spine neg check ct chest for any tumor or paraneoplastic consider LP for gbs variant mr t spine paraneo labs MED TEAM VERIFY TELE IS SR VS AFIB PLZ oob 03/12/18 looks more ataxic this am ct castro dnabd pelsis neg mri c and t neg plan is labs repeat mri brain look at r medulla LP for any gbs variant consider rx ceftriaxone with tick after LP lyme pend id note seen standing bp fine progressiveataxia paraneo labs pend unusual case 03/13/18 repeat brain mri no enhancement nor abn r medulla plan is LP and then prob pex i dw him and family - 03/15/18 csf prot min up ow neg lyme neg try pex ---- plasm ex #1 today then if ok could dc and get o/p Mickey Mata MD March 16, 2018 08:13
[2018-03-16] MEDS: methylPREDNISolone SOD SUCC 125 MG/2 ML VIAL IV PUSH SCH (08:28)
[2018-03-16] MEDS: FAMOTIDINE 20 MG/2 ML VIAL IV PUSH SCH (08:29)
[2018-03-16] MEDS: CALCIUM GLUCONATE INJ 3 GM in SODIUM CHLOR 0.9% 250 ML INJ 150 ML IV SCH (11:53)
[2018-03-16] MEDS: ANTICOAGULANT CITRATE DEXTROSE SOLN-A 1L OTHER SCH (11:54)
[2018-03-16] MEDS: ALBUMIN 5% INJ 3,500 ML IV SCH (11:54)
--- NOTE | 2018-03-16 13:34 | PD.ONC.PN ---
Subjective Subjective Remarks Afebrile overnight. Patient resting in room. he received his first plasma exchange this morning and tolerated it without difficulty. Objective Data Date Time Temp Pulse Resp B/P (MAP) Pulse Ox O2 Delivery O2 Flow Rate FiO2 03/16/18 12:00 72 03/16/18 08:01 97.9 62 20 158/76 (103) 99 03/16/18 08:00 63 03/16/18 05:11 59 03/16/18 03:15 98.0 67 17 126/68 (87) 97 03/16/18 00:00 98.0 69 17 125/66 (85) 96 03/16/18 00:00 56 03/15/18 22:00 66 03/15/18 20:00 97.0 70 16 130/70 (90) 95 03/15/18 16:00 97.4 67 16 136/71 (92) 97 03/16/18 03/16/18 03/16/18 07:00 15:00 23:00 Intake Total 725 ml Balance 725 ml Result Diagram: 03/12/18 1040 Culture Results Microbiology Date/Time Source Procedure Growth Status 03/14/18 09:44 Cerebral Spinal Fluid Lumbar Puncture Fungal Smear - Final NO FUNGAL ELEMENTS SEEN. Resulted 03/14/18 09:44 Cerebral Spinal Fluid Lumbar Puncture Fungal Culture Pending Resulted 03/14/18 09:44 Cerebral Spinal Fluid Lumbar Puncture Acid Fast Stain - Final NO ACID FAST BACILLI SEEN Resulted 03/14/18 09:44 Cerebral Spinal Fluid Lumbar Puncture Mycobacterial Culture Pending Resulted 03/14/18 09:44 Cerebral Spinal Fluid Lumbar Puncture Gram Stain - Final Resulted 03/14/18 09:44 Cerebral Spinal Fluid Lumbar Puncture CSF Culture - Preliminary NO GROWTH IN 48 HOURS. Resulted Administered Medications Medications (Trade) Dose Ordered Sig/Nancy Route PRN Reason Start Time Stop Time Status Last Admin Dose Admin Sodium Chloride (NS Flush) 2 ml BID IV FLUSH 03/09/18 21:00 03/16/18 08:04 Pantoprazole Sodium (Protonix) 20 mg DAILY PO 03/10/18 09:00 03/16/18 07:44 Loratadine (Claritin) 10 mg DAILY PO 03/13/18 09:00 03/16/18 07:44 Albumin Human 3,500 ml @ 250 mls/hr EVERY OTHER DAY IV 03/16/18 09:00 03/24/18 22:59 03/16/18 11:54 Methylprednisolone Sodium Succinate (SoluMEDROL INJ) 125 mg EVERY OTHER DAY IV PUSH 03/16/18 09:00 03/24/18 09:01 03/16/18 08:28 Famotidine (Pepcid Inj) 20 mg EVERY OTHER DAY IV PUSH 03/16/18 09:00 03/24/18 09:01 03/16/18 08:29 Calcium Gluconate 3 gm/Sodium Chloride 180 ml @ 90 mls/hr EVERY OTHER DAY IV 03/16/18 09:00 03/24/18 10:59 03/16/18 11:53 Anticoagulant Citrate Dextose Jannette A (Acd Formula Inj) 1,000 ml EVERY OTHER DAY OTHER 03/16/18 09:00 03/24/18 09:01 03/16/18 11:54 Objective Remarks GENERAL: Elderly male upright in bed SKIN: Warm and dry. vas-cath in neck, no bleeding. HEAD: Normocephalic. EYES: no injection or drainage. NECK: Supple, trachea midline. CARDIOVASCULAR: Regular rate and rhythm RESPIRATORY: Breath sounds equal bilaterally. No accessory muscle use. GASTROINTESTINAL: Abdomen soft, non-tender, nondistended. EXTREMITIES: No cyanosis MUSCULOSKELETAL: Adequate muscle tone. NEUROLOGICAL: awake and alert. normal speech. + ataxia Assessment/Plan Problem List: (1) plasma exchange Plan: 03/16: vas-cath placed, start plasma exchange. --LP showed slight elevation in total protein. --Lyme disease evaluation was negative. --Paraneoplastic labs are still pending. --had a presentation of dizziness, history of chronic peripheral neuropathy who developed ataxia to the point that he is unable to walk. 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 hematology consulted for plasma exchange. history of noninvasive bladder cancer. Histoplasmosis. Gastroesophageal reflux disease. Hyperlipidemia. Hypertension. Chronic idiopathic lower extremity neuropathy. Plan 1. vas-cath placed today 2. first plasma exchange this AM 3. next plasma exchange on Tuesday 4. monitor CBC, coags Attending Statement The exam, history, and the medical decision-making described in the above note were completed with the assistance of the mid-level provider. I reviewed and agree with the findings presented. I attest that I had a [id number] encounter with the patient on the same day, and personally performed and documented my assessment and findings in the medical record. [place] fatigue post pheresis, tolerated procedure well, feels worse. No change neurologically. at bedside thinks he's not worse. Discussed principles of procedure, answered questions. Continue current tx goal x 5. Tiffani Mart March 16, 2018 13:34 Jeaneth Valdes MD March 16, 2018 16:47
--- NOTE | 2018-03-16 15:30 | HHI.PR ---
Subjective Remarks Patient just had plasma exchange session No fever or chills no respiratory complain However he still feeling frustrated because he did not feel improvement after first session I explained to him that it may take more than one session Objective Vitals Vital Signs Date Time Temp Pulse Resp B/P (MAP) Pulse Ox O2 Delivery O2 Flow Rate FiO2 03/16/18 12:00 72 03/16/18 08:01 97.9 62 20 158/76 (103) 99 03/16/18 08:00 63 03/16/18 05:11 59 03/16/18 03:15 98.0 67 17 126/68 (87) 97 03/16/18 00:00 98.0 69 17 125/66 (85) 96 03/16/18 00:00 56 03/15/18 22:00 66 03/15/18 20:00 97.0 70 16 130/70 (90) 95 03/15/18 16:00 97.4 67 16 136/71 (92) 97 I/O 03/15/18 03/15/18 03/15/18 03/16/18 03/16/18 03/16/18 06:59 14:59 22:59 06:59 14:59 22:59 Intake Total 650 ml 725 ml Balance 650 ml 725 ml Intake Oral 650 ml 725 ml # Voids 3 1 3 # Bowel Movements 0 0 Result Diagram: 03/12/18 1040 Objective Remarks GENERAL: This is a well-nourished, well-developed patient, in no apparent distress. CARDIOVASCULAR: RRR, no gallops, or rubs. RESPIRATORY: Fair air entry bilaterally. No W, R, or R GASTROINTESTINAL: Abdomen soft, non-tender, nondistended. Positive bowel sounds MUSCULOSKELETAL: Extremities without clubbing, cyanosis, or edema. Pedal pulses appreciated NEUROLOGICAL: Awake and alert. Moves all extremity. Normal speech. 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 This is persistent, etiology to be determined. Patient was found to have a tick bite on admission Generalized weakness Unsafe to go home = Patient and both states it is unsafe to go home at this time. He has been falling at home. Fall precautions = PT recommends inpatient rehab = F/U copper levels, SPEP, RPR and lyme titer = Neurology ff. Repeat MRI negative. Patient has underwent extensive imaging workup negative. Lumbar puncture and Paraneoplastic labs have been ordered Appreciate ID following. Lyme Ab has been ordered - Neg Symptoms seems to have started prior to tick bite. Diagnosis is uncertain at this time and there are multiple sent out labs ordered. Neurology recommended plasma exchange and Hematology was consulted. Vas cath placed/ GERD. Chronic. Continue PPI. Hyperlipidemia. Continue statin. Chronic allergies. Resume antihistamine. Recent subjective weight loss. Patient reports decreased oral intake and has not been active. Hypertension. Blood pressure variable. Not orthostatic DVT proph with SCd and early ambulation Discharge Planning [place] to evaluate. Workup ongoing. Plasma exchange per Neurology. Abhi Khan MD March 16, 2018 15:30
[2018-03-16 19:53] LABS: CALIFORNIA ENCEPH AB IGG <1:4 (<1:4); CALIFORNIA ENCEPH AB IGM <1:4 (<1:4); EAST EQUINE ENCEPH AB IGG <1:4 (<1:4); EAST EQUINE ENCEPH AB IGM <1:4 (<1:4); ST LOUIS ENCEPH AB IGG <1:4 (<1:4); ST LOUIS ENCEPH AB IGM <1:4 (<1:4); WEST EQUINE ENCEPH AB IGG <1:4 (<1:4); WEST EQUINE ENCEPH AB IGM <1:4 (<1:4)
[2018-03-16 23:52] LABS: CSF CRYPTOCOCCUS ANTIGEN NOT DETECTED (NEGATIVE); VDRL CSF NON-REACTIVE (NON-REACTVE)
[2018-03-17] VITALS (7 sets, daily range): BP systolic 113–158; BP diastolic 57–78; PULSE 64–88; RESP 19–20; TEMP 97.3–98.5; O2SAT 93–100
--- NOTE | 2018-03-17 07:51 | HHI.PR ---
Subjective Remarks sr Objective Vital Signs Date Time Temp Pulse Resp B/P (MAP) Pulse Ox O2 Delivery O2 Flow Rate FiO2 03/17/18 05:13 97.9 66 20 122/60 (80) 96 03/17/18 00:31 98.5 88 20 122/57 (78) 95 03/16/18 21:03 97.1 105 20 148/74 (98) 96 03/16/18 16:03 98.0 90 20 134/72 (92) 94 03/16/18 16:00 92 03/16/18 12:00 72 03/16/18 08:01 97.9 62 20 158/76 (103) 99 03/16/18 08:00 63 I/O 03/16/18 03/16/18 03/16/18 03/17/18 03/17/18 03/17/18 07:00 15:00 23:00 07:00 15:00 23:00 Intake Total 725 ml 720 ml Output Total 500 ml Balance 725 ml 720 ml -500 ml Intake Oral 725 ml 720 ml Output Urine Total 500 ml # Voids 3 2 # Bowel Movements 0 1 Objective Remarks mild weak left fdi some erythema left side at bite mild looks better axial ataxic gait hallpike neg ataxic bilat f to nose this am no nystag dtr absent but hx of that 03/13/18 still ataxic heel to [place] today areflexic 02/18 / hallpike neg / unsteady gait02/18 03/16/18 feels overall ok line in -- 03/17/18 FDI 4+ R 4- LEFT EHL WEAK LEFT OW 02/18 VERY ATAXIC GAIT THIS AM AND LEGS Assessment and Plan Assessment and Plan imp mri/a/a neg labs ok still very ataxic gait axial ataxia cbllm looks ok on mri r ventral medulla ? enhance ? soft call ow neg i think not real probably plan mri c spine neg check ct chest for any tumor or paraneoplastic consider LP for gbs variant mr t spine paraneo labs MED TEAM VERIFY TELE IS SR VS AFIB PLZ oob 03/12/18 looks more ataxic this am ct castro dnabd pelsis neg mri c and t neg plan is labs repeat mri brain look at r medulla LP for any gbs variant consider rx ceftriaxone with tick after LP lyme pend id note seen standing bp fine progressiveataxia paraneo labs pend unusual case 03/13/18 repeat brain mri no enhancement nor abn r medulla plan is LP and then prob pex i dw him and family - 03/15/18 csf prot min up ow neg lyme neg try pex ---- plasm ex #1 today then if ok could dc and get o/p 03/17/18 maybe a little worse keep here until second pex and dr mccabe to fu in am check standing bp and paraneoplastic screen ?ataxic variant gbs? she will fu with him after that o/p as i am out of town for two weeks Mickey Mata MD Mar 17, 2018 07:51
[2018-03-17 08:36] LABS: AUTOMATED NEUTROPHIL # 10.6 TH/MM3 (1.8-7.7); BASOPHIL % 0.1 % (0.0-2.0); HEMATOCRIT 39.9 % (39.0-51.0); HEMOGLOBIN 13.5 GM/DL (13.0-17.0); LYMPH % 9.1 % (9.0-44.0); LYMPHOCYTE # 1.1 TH/MM3 (1.0-4.8); MEAN CELL VOLUME 92.3 FL (80.0-100.0); MEAN CORPUSCULAR HEMOGLOBIN 31.3 PG (27.0-34.0); MEAN CORPUSCULAR HGB CONC 33.9 % (32.0-36.0); MEAN PLATELET VOLUME 8.8 FL (7.0-11.0); MONOCYTE # 0.6 TH/MM3 (0-0.9); NEUT % 85.8 % (16.0-70.0); PLATELET COUNT 159 TH/MM3 (150-450); RED BLOOD COUNT 4.32 MIL/MM3 (4.50-5.90); RED CELL DISTRIBUTION WIDTH 13.6 % (11.6-17.2); WHITE BLOOD COUNT 12.4 TH/MM3 (4.0-11.0)
[2018-03-17 08:41] LABS: INTERNATIONAL NORMALIZED RATIO 1.1 RATIO; PROTHROMBIN TIME - PATIENT 10.9 SEC (9.8-11.6)
[2018-03-17] MEDS: LORATADINE 10 MG TAB PO SCH (08:46)
[2018-03-17] MEDS: PANTOPRAZOLE SOD 20 MG DELAYED RELEASE TAB PO SCH (08:46)
[2018-03-17] MEDS: SODIUM CHLORIDE 0.9% FLUSH 10 ML FLUSH IV FLUSH SCH (08:46)
[2018-03-17 10:29] LABS: CSF CRYPTOCOCCUS AG CONF ND (NOT DETECTD)
--- NOTE | 2018-03-17 15:45 | HM ---
Date Performed: 03/15/2018 Time Performed: 17:23:00 HOOKUP DATE: 03/15/18 05:23:00 PM Wed ANALYSIS START TIME: 03/15/2018 5:28:00 PM ANALYSIS END TIME: 03/16/2018 3:18:34 PM PATIENT AGE: 77 PATIENT HEIGHT PATIENT WEIGHT DRUG LIST PATIENT DIAGNOSIS: ataxia dizziness TEST NARRATIVE: The patient's average heart rate was 69 BPM. Heart rates greater than 120 B PM were noted < 1% of the time. No episodes of bradycardia were noted. No pauses exceeding 2.0 s econds were noted. 51 ventricular ectopics, which represented < 1% of the total beat count, were noted. The highest ventricular ectopic frequency occurred from 02:00 PM to 03:00 PM Ritika. During thi s time 19 VE(s) occurred. Ventricular ectopics were observed as 51 isolated beat(s) only. No couple ts or runs were noted. 301 supraventricular ectopics, which represented < 1% of the total beat co unt, were noted. The highest supraventricular ectopic frequency occurred from 05:00 PM to 06:00 PM W ed. During this time 52 SVE(s) occurred. No episodes of ST depression (defined as -1.0 mm or mor e) were noted in channel 1. No episodes of ST depression (defined as -1.0 mm or more) were noted in channel 2. No episodes of ST depression (defined as -1.0 mm or more) were noted in channel 3. TEST INTERPRETATION: Patient was monitored for 21 hours and 51 minutes. The average heart rate 6 9, minimum heart 52, maximum heart rate 120. There were 51 PVCs and 5 short atrial runs, longest of 9 beats. Conclusions: Sinus rhythm with occasional ectopy and several short atrial runs, but no sustained atrial fibrillation or other dysrhythmia. Signed by : Franky H [facility]
--- NOTE | 2018-03-17 18:39 | HHI.PR ---
Subjective Remarks Patient with his in the room He is expressing frustration that he still not feeling improvement after that first session of plasma exchange yesterday Again we discussed in length that we need to monitor closely for any respiratory symptoms, continue he will have another session tomorrow, and it may take more than one session to show improvement Objective Vitals Vital Signs Date Time Temp Pulse Resp B/P (MAP) Pulse Ox O2 Delivery O2 Flow Rate FiO2 03/17/18 16:00 97.8 66 19 113/63 (80) 93 03/17/18 11:15 97.3 70 20 136/64 (88) 100 135/60 (85) 136/65 (88) 03/17/18 08:04 143/78 (99) 03/17/18 08:03 97.8 68 20 138/68 (91) 96 139/74 (95) 03/17/18 05:13 97.9 66 20 122/60 (80) 96 03/17/18 00:31 98.5 88 20 122/57 (78) 95 03/16/18 21:03 97.1 105 20 148/74 (98) 96 I/O 03/16/18 03/16/18 03/16/18 03/17/18 03/17/18 03/17/18 06:59 14:59 22:59 06:59 14:59 22:59 Intake Total 725 ml 720 ml 960 ml Output Total 500 ml Balance 725 ml 720 ml -500 ml 960 ml Intake Oral 725 ml 720 ml 960 ml Output Urine Total 500 ml # Voids 3 2 4 # Bowel Movements 0 1 1 Result Diagram: 03/17/18 0536 Objective Remarks GENERAL: This is a well-nourished, well-developed patient, in no apparent distress. CARDIOVASCULAR: RRR, no gallops, or rubs. RESPIRATORY: Fair air entry bilaterally. No W, R, or R GASTROINTESTINAL: Abdomen soft, non-tender, nondistended. Positive bowel sounds MUSCULOSKELETAL: Extremities without clubbing, cyanosis, or edema. Pedal pulses appreciated NEUROLOGICAL: Awake and alert. Moves all extremity. Normal speech. 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 --Lyme disease evaluation was negative. --Paraneoplastic labs are still pending. --had a presentation of dizziness, history of chronic peripheral neuropathy who developed ataxia to the point that he is unable to walk. 03/17:Again we discussed in length that we need to monitor closely for any respiratory symptoms, continue he will have another session tomorrow, and it may take more than one session to show improvement A/P: Ataxia, onset over the past month, worsening. This is persistent, etiology to be determined. Patient was found to have a tick bite on admission Generalized weakness Unsafe to go home = Patient and both states it is unsafe to go home at this time. He has been falling at home. Fall precautions = PT recommends inpatient rehab = F/U copper levels, SPEP, RPR and lyme titer = Neurology ff. Repeat MRI negative. Patient has underwent extensive imaging workup negative. Lumbar puncture and Paraneoplastic labs have been ordered Appreciate ID following. Lyme Ab has been ordered - Neg Symptoms seems to have started prior to tick bite. Diagnosis is uncertain at this time and there are multiple sent out labs ordered. Neurology recommended plasma exchange and Hematology was consulted. Vas cath placed/ GERD. Chronic. Continue PPI. Hyperlipidemia. Continue statin. Chronic allergies. Resume antihistamine. Recent subjective weight loss. Patient reports decreased oral intake and has not been active. Hypertension. Blood pressure variable. Not orthostatic DVT proph with SCd and early ambulation Discharge Planning [place] to evaluate. Workup ongoing. Plasma exchange per Neurology. Abhi Khan MD Mar 17, 2018 18:39
[2018-03-17 19:55] LABS: HU (NEURONAL NUCLEAR) AB NEGATIVE (NEGATIVE); HU (NEURONAL NUCLEAR) AB TITER ND titer (<1:40); NEURONAL NUCLEAR(Ri) AB SCREEN NEGATIVE (NEGATIVE); PURKINJE CELL (YO) AB NEGATIVE (NEGATIVE); PURKINJE CELL(YO)IGG AB TITER ND titer (<1:40); YO WESTBLOT ND (NEGATIVE)
[2018-03-18] VITALS (7 sets, daily range): BP systolic 115–150; BP diastolic 66–80; PULSE 60–94; RESP 16–22; TEMP 97.6–98.1; O2SAT 94–99
[2018-03-18] MEDS: SODIUM CHLORIDE 0.9% FLUSH 10 ML FLUSH IV FLUSH SCH ×3 (00:30→21:00)
[2018-03-18 07:30] LABS: BASOPHIL % 0.6 % (0.0-2.0); EOSINOPHIL # 0.1 TH/MM3 (0-0.4); EOSINOPHIL % 1.8 % (0.0-4.0); HEMATOCRIT 39.2 % (39.0-51.0); HEMOGLOBIN 13.4 GM/DL (13.0-17.0); LYMPHOCYTE # 1.8 TH/MM3 (1.0-4.8); MEAN CELL VOLUME 92.7 FL (80.0-100.0); MEAN CORPUSCULAR HEMOGLOBIN 31.6 PG (27.0-34.0); MEAN CORPUSCULAR HGB CONC 34.1 % (32.0-36.0); MEAN PLATELET VOLUME 8.4 FL (7.0-11.0); MONO % 7.3 % (0.0-8.0); MONOCYTE # 0.6 TH/MM3 (0-0.9); NEUT % 66.3 % (16.0-70.0); PLATELET COUNT 139 TH/MM3 (150-450); RED BLOOD COUNT 4.23 MIL/MM3 (4.50-5.90); WHITE BLOOD COUNT 7.6 TH/MM3 (4.0-11.0)
[2018-03-18 07:42] LABS: PROTHROMBIN TIME - PATIENT 10.6 SEC (9.8-11.6)
[2018-03-18] MEDS: LORATADINE 10 MG TAB PO SCH (08:43)
[2018-03-18] MEDS: PANTOPRAZOLE SOD 20 MG DELAYED RELEASE TAB PO SCH (08:43)
[2018-03-18] MEDS: methylPREDNISolone SOD SUCC 125 MG/2 ML VIAL IV PUSH SCH (08:43)
[2018-03-18] MEDS: FAMOTIDINE 20 MG/2 ML VIAL IV PUSH SCH (09:00)
[2018-03-18] MEDS: ALBUMIN 5% INJ 3,500 ML IV SCH (10:28)
[2018-03-18] MEDS: ANTICOAGULANT CITRATE DEXTROSE SOLN-A 1L OTHER SCH (10:29)
[2018-03-18] MEDS: CALCIUM GLUCONATE INJ 3 GM in SODIUM CHLOR 0.9% 250 ML INJ 150 ML IV SCH (10:29)
--- NOTE | 2018-03-18 11:01 | PD.ONC.PN ---
Subjective Subjective Remarks Afebrile overnight. Patient resting in bed. Has not noticed any improvement since plasma exchange . No bleeding or side effects, either. Objective Data Date Time Temp Pulse Resp B/P (MAP) Pulse Ox O2 Delivery O2 Flow Rate FiO2 03/18/18 08:00 98.1 69 18 128/72 (90) 95 128/70 (89) 124/71 (88) 03/18/18 04:26 97.6 60 20 130/76 (94) 99 03/18/18 00:49 97.6 61 20 115/70 (85) 95 03/17/18 20:36 97.4 64 20 158/72 (100) 94 03/17/18 16:00 97.8 66 19 113/63 (80) 93 03/17/18 11:15 97.3 70 20 136/64 (88) 100 135/60 (85) 136/65 (88) Result Diagram: 03/18/18 0633 Laboratory Results Laboratory Tests Test 03/17/18 11:30 03/18/18 06:33 White Blood Count 7.6 TH/MM3 Red Blood Count 4.23 MIL/MM3 Hemoglobin 13.4 GM/DL Hematocrit 39.2 % Mean Corpuscular Volume 92.7 FL Mean Corpuscular Hemoglobin 31.6 PG Mean Corpuscular Hemoglobin Concent 34.1 % Red Cell Distribution Width 14.0 % Platelet Count 139 TH/MM3 Mean Platelet Volume 8.4 FL Neutrophils (%) (Auto) 66.3 % Lymphocytes (%) (Auto) 24.0 % Monocytes (%) (Auto) 7.3 % Eosinophils (%) (Auto) 1.8 % Basophils (%) (Auto) 0.6 % Neutrophils # (Auto) 5.0 TH/MM3 Lymphocytes # (Auto) 1.8 TH/MM3 Monocytes # (Auto) 0.6 TH/MM3 Eosinophils # (Auto) 0.1 TH/MM3 Basophils # (Auto) 0.0 TH/MM3 CBC Comment DIFF FINAL Differential Comment Prothrombin Time 10.6 SEC Prothromb Time International Ratio 1.0 RATIO Activated Partial Thromboplast Time 23.8 SEC Fibrinogen 167 mg/dL Administered Medications Medications (Trade) Dose Ordered Sig/Nancy Route PRN Reason Start Time Stop Time Status Last Admin Dose Admin Sodium Chloride (NS Flush) 2 ml BID IV FLUSH 03/09/18 21:00 03/18/18 00:30 Pantoprazole Sodium (Protonix) 20 mg DAILY PO 03/10/18 09:00 03/18/18 08:43 Loratadine (Claritin) 10 mg DAILY PO 03/13/18 09:00 03/18/18 08:43 Albumin Human 3,500 ml @ 250 mls/hr EVERY OTHER DAY IV 03/16/18 09:00 03/24/18 22:59 03/18/18 10:28 Methylprednisolone Sodium Succinate (SoluMEDROL INJ) 125 mg EVERY OTHER DAY IV PUSH 03/16/18 09:00 03/24/18 09:01 03/18/18 08:43 Famotidine (Pepcid Inj) 20 mg EVERY OTHER DAY IV PUSH 03/16/18 09:00 03/24/18 09:01 03/18/18 09:00 Calcium Gluconate 3 gm/Sodium Chloride 180 ml @ 90 mls/hr EVERY OTHER DAY IV 03/16/18 09:00 03/24/18 10:59 03/18/18 10:29 Sodium Chloride 1,000 ml @ 0 mls/hr Q0M IV 03/16/18 08:00 03/24/18 09:01 03/18/18 10:30 Anticoagulant Citrate Dextose Jannette A (Acd Formula Inj) 1,000 ml EVERY OTHER DAY OTHER 03/16/18 09:00 03/24/18 09:01 03/18/18 10:29 Heparin Sodium (Porcine) (Heparin Inj) 1,000 units UNSCH PRN IV FLUSH FLUSH AFTER USING IV ACCESS 03/16/18 08:00 03/24/18 09:01 03/18/18 10:30 Objective Remarks GENERAL: Elderly male sitting up in chair next to bed in [facility]. SKIN: Warm and dry. vas-cath without bleeding. HEAD: Normocephalic. EYES: no injection or drainage. NECK: Supple, trachea midline. CARDIOVASCULAR: Regular rate and rhythm RESPIRATORY: Breath sounds equal bilaterally. No accessory muscle use. GASTROINTESTINAL: Abdomen soft, non-tender, nondistended. EXTREMITIES: No cyanosis MUSCULOSKELETAL: Adequate muscle tone. NEUROLOGICAL: awake, alert. normal speech. moving extremities. Assessment/Plan Problem List: (1) plasma exchange Plan: 03/18: PEX #2 03/16: vas-cath placed, PEX #1 --LP showed slight elevation in total protein. --Lyme disease evaluation was negative. --Paraneoplastic labs are still pending. --had a presentation of dizziness, history of chronic peripheral neuropathy who developed ataxia to the point that he is unable to walk. 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 hematology consulted for plasma exchange. history of noninvasive bladder cancer. Histoplasmosis. Gastroesophageal reflux disease. Hyperlipidemia. Hypertension. Chronic idiopathic lower extremity neuropathy. Plan 1. proceed with PEX #2 today 2. monitor CBC, coags Attending Statement The exam, history, and the medical decision-making described in the above note were completed with the assistance of the mid-level provider. I reviewed and agree with the findings presented. I attest that I had a [id number] encounter with the patient on the same day, and personally performed and documented my assessment and findings in the medical record GBS getting plasma -exchange does not endorse any improvement yet second treatment today Fibrinogen stable daily labs/fibrinogen Tiffani Mart Mar 18, 2018 11:01 Lv Gomez MD Mar 18, 2018 11:58
--- NOTE | 2018-03-18 12:13 | HHI.PR ---
Subjective Remarks receiving plex now still unsteady walking. hx neuropathy ?agent orange Objective Vital Signs Date Time Temp Pulse Resp B/P (MAP) Pulse Ox O2 Delivery O2 Flow Rate FiO2 03/18/18 08:00 98.1 69 18 128/72 (90) 95 128/70 (89) 124/71 (88) 03/18/18 04:26 97.6 60 20 130/76 (94) 99 03/18/18 00:49 97.6 61 20 115/70 (85) 95 03/17/18 20:36 97.4 64 20 158/72 (100) 94 03/17/18 16:00 97.8 66 19 113/63 (80) 93 I/O 03/17/18 03/17/18 03/17/18 03/18/18 03/18/18 03/18/18 07:00 15:00 23:00 07:00 15:00 23:00 Intake Total 960 ml Output Total 500 ml 400 ml Balance -500 ml 960 ml -400 ml Intake Oral 960 ml Output Urine Total 500 ml 400 ml # Voids 4 1 # Bowel Movements 1 Result Diagram: 03/18/18 0633 Objective Remarks awake alert perrla no nystagmus nl speech motor grossly normal absent dtrs in legs toes silent gait unable to assess as having PLEX#2 cont pt-ot plex #3 tuesday will cont follow. Tonya Silva MD Mar 18, 2018 12:13
--- NOTE | 2018-03-18 15:39 | HHI.PR ---
Subjective Remarks Patient eating lunch with his Reported same weakness in the lower extremity no improvement, he has second session of plasmapheresis today No report of any respiratory compromise so far Objective Vitals Vital Signs Date Time Temp Pulse Resp B/P (MAP) Pulse Ox O2 Delivery O2 Flow Rate FiO2 03/18/18 12:00 97.7 73 20 128/71 (90) 96 127/66 (86) 139/80 (99) 03/18/18 08:00 98.1 69 18 128/72 (90) 95 128/70 (89) 124/71 (88) 03/18/18 08:00 76 03/18/18 04:26 97.6 60 20 130/76 (94) 99 03/18/18 00:49 97.6 61 20 115/70 (85) 95 03/17/18 20:36 97.4 64 20 158/72 (100) 94 03/17/18 16:00 97.8 66 19 113/63 (80) 93 I/O 03/17/18 03/17/18 03/17/18 03/18/18 03/18/18 03/18/18 07:00 15:00 23:00 07:00 15:00 23:00 Intake Total 960 ml Output Total 500 ml 400 ml Balance -500 ml 960 ml -400 ml Intake Oral 960 ml Output Urine Total 500 ml 400 ml # Voids 4 1 # Bowel Movements 1 Result Diagram: 03/18/18 0633 Objective Remarks GENERAL: This is a well-nourished, well-developed patient, in no apparent distress. CARDIOVASCULAR: RRR, no gallops, or rubs. RESPIRATORY: Fair air entry bilaterally. No W, R, or R GASTROINTESTINAL: Abdomen soft, non-tender, nondistended. Positive bowel sounds MUSCULOSKELETAL: Extremities without clubbing, cyanosis, or edema. Pedal pulses appreciated NEUROLOGICAL: Awake and alert. Moves all extremity. Normal speech. 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 --Lyme disease evaluation was negative. --Paraneoplastic labs are still pending. --had a presentation of dizziness, history of chronic peripheral neuropathy who developed ataxia to the point that he is unable to walk. 03/17:Again we discussed in length that we need to monitor closely for any respiratory symptoms, continue he will have another session tomorrow, and it may take more than one session to show improvement 03/18: Plasmapheresis session #2 today, continue monitoring, follow with hematology and Neurology A/P: Ataxia, onset over the past month, worsening. This is persistent, etiology to be determined. Patient was found to have a tick bite on admission Generalized weakness Unsafe to go home = Patient and both states it is unsafe to go home at this time. He has been falling at home. Fall precautions = PT recommends inpatient rehab = F/U copper levels, SPEP, RPR and lyme titer = Neurology ff. Repeat MRI negative. Patient has underwent extensive imaging workup negative. Lumbar puncture and Paraneoplastic labs have been ordered Appreciate ID following. Lyme Ab has been ordered - Neg Symptoms seems to have started prior to tick bite. Diagnosis is uncertain at this time and there are multiple sent out labs ordered. Neurology recommended plasma exchange and Hematology was consulted. Vas cath placed/ GERD. Chronic. Continue PPI. Hyperlipidemia. Continue statin. Chronic allergies. Resume antihistamine. Recent subjective weight loss. Patient reports decreased oral intake and has not been active. Hypertension. Blood pressure variable. Not orthostatic DVT proph with SCd and early ambulation Discharge Planning [place] to evaluate. Workup ongoing. Plasma exchange per Neurology. Abhi Khan MD Mar 18, 2018 15:39
[2018-03-19] VITALS (10 sets, daily range): BP systolic 112–142; BP diastolic 56–74; PULSE 59–89; RESP 16–19; TEMP 97.5–98.3; O2SAT 95–99
[2018-03-19 08:15] LABS: AUTOMATED NEUTROPHIL # 12.6 TH/MM3 (1.8-7.7); BASOPHIL % 0.1 % (0.0-2.0); HEMOGLOBIN 12.9 GM/DL (13.0-17.0); LYMPH % 6.7 % (9.0-44.0); MEAN CELL VOLUME 93.5 FL (80.0-100.0); MEAN CORPUSCULAR HEMOGLOBIN 30.9 PG (27.0-34.0); MEAN CORPUSCULAR HGB CONC 33.1 % (32.0-36.0); MEAN PLATELET VOLUME 8.9 FL (7.0-11.0); MONO % 5.8 % (0.0-8.0); MONOCYTE # 0.8 TH/MM3 (0-0.9); NEUT % 87.4 % (16.0-70.0); PLATELET COUNT 149 TH/MM3 (150-450); RED BLOOD COUNT 4.17 MIL/MM3 (4.50-5.90); WHITE BLOOD COUNT 14.4 TH/MM3 (4.0-11.0)
[2018-03-19 08:41] LABS: INTERNATIONAL NORMALIZED RATIO 1.2 RATIO; PROTHROMBIN TIME - PATIENT 11.9 SEC (9.8-11.6)
[2018-03-19] MEDS ORDERED: SODIUM CHLOR 0.9% 250 ML INJ 250 ML IV ONE (09:30)
[2018-03-19] MEDS ORDERED: diphenhydrAMINE HCL 25 MG CAP PO PRN (09:30)
[2018-03-19] MEDS ORDERED: ACETAMINOPHEN 325 MG TAB PO PRN (09:30)
[2018-03-19] MEDS: LORATADINE 10 MG TAB PO SCH (10:02)
[2018-03-19] MEDS: PANTOPRAZOLE SOD 20 MG DELAYED RELEASE TAB PO SCH (10:02)
[2018-03-19] MEDS: SODIUM CHLORIDE 0.9% FLUSH 10 ML FLUSH IV FLUSH SCH ×2 (10:03→21:29)
--- NOTE | 2018-03-19 13:20 | HHI.PR ---
Subjective Remarks Patient sitting on the chair about to have lunch Reported still no improvement with his lower extremity and his gait Status post 2 sessions of plasmapheresis Objective Vitals Vital Signs Date Time Temp Pulse Resp B/P (MAP) Pulse Ox O2 Delivery O2 Flow Rate FiO2 03/19/18 11:48 131/68 (89) 137/74 (95) 03/19/18 11:45 97.5 66 16 118/63 (81) 98 03/19/18 08:00 98.0 64 16 124/70 (88) 96 142/74 (96) 127/69 (88) 03/19/18 05:00 98.0 88 17 125/65 (85) 96 03/19/18 00:15 97.6 89 16 130/64 (86) 95 03/18/18 20:45 98.0 91 16 137/67 (90) 94 129/79 (96) 150/74 (99) 03/18/18 19:48 94 03/18/18 16:00 97.8 93 22 122/77 (92) 96 136/80 (98) 03/18/18 16:00 91 I/O 03/18/18 03/18/18 03/18/18 03/19/18 03/19/18 03/19/18 07:00 15:00 23:00 07:00 15:00 23:00 Intake Total 500 ml 400 ml Output Total 400 ml 0 ml 0 ml Balance -400 ml 500 ml 400 ml Intake Oral 500 ml 400 ml Output Urine Total 400 ml 0 ml 0 ml # Voids 1 # Bowel Movements 0 0 Result Diagram: 03/19/18 0643 Objective Remarks GENERAL: This is a well-nourished, well-developed patient, in no apparent distress. CARDIOVASCULAR: RRR, no gallops, or rubs. RESPIRATORY: Bibasilar crackles GASTROINTESTINAL: Abdomen soft, non-tender, nondistended. Positive bowel sounds MUSCULOSKELETAL: Extremities without clubbing, cyanosis, or edema. Pedal pulses appreciated NEUROLOGICAL: Awake and alert. Moves all extremity. Normal speech. Unstable gait/ataxic Procedures none A/P Problem List: (1) Ataxia ICD Code: R27.0 - Ataxia, unspecified Status: Acute Assessment and Plan 77-year-old male with: 03/16: Status post 1 session of plasma exchange, continue close monitoring, appreciate neurology and hematology assistant therapy aide --LP showed slight elevation in total protein. --Lyme disease evaluation was negative. --Paraneoplastic labs are still pending. --had a presentation of dizziness, history of chronic peripheral neuropathy who developed ataxia to the point that he is unable to walk. 03/17:Again we discussed in length that we need to monitor closely for any respiratory symptoms, continue he will have another session tomorrow, and it may take more than one session to show improvement 6/: Plasmapheresis session #2 today, continue monitoring, follow with hematology and Neurology 03/19: Continue current care with plasmapheresis, appreciate hematology and neurology assistance, today fibrinogen level is low 90, hematology ordered cryoprecipitate Most of the antibody workup is negative except for mycoplasma pneumonia IgG was positive A/P: Ataxia, onset over the past month, worsening. This is persistent, etiology to be determined. Patient was found to have a tick bite on admission Generalized weakness Unsafe to go home = Patient and both states it is unsafe to go home at this time. He has been falling at home. Fall precautions = PT recommends inpatient rehab = F/U copper levels, SPEP, RPR and lyme titer = Neurology ff. Repeat MRI negative. Patient has underwent extensive imaging workup negative. Lumbar puncture and Paraneoplastic labs have been ordered Appreciate ID following. Lyme Ab has been ordered - Neg Symptoms seems to have started prior to tick bite. Diagnosis is uncertain at this time and there are multiple sent out labs ordered. Neurology recommended plasma exchange and Hematology was consulted. Vas cath placed/ GERD. Chronic. Continue PPI. Hyperlipidemia. Continue statin. Chronic allergies. Resume antihistamine. Recent subjective weight loss. Patient reports decreased oral intake and has not been active. Hypertension. Blood pressure variable. Not orthostatic DVT proph with SCd and early ambulation Discharge Planning [place] to evaluate. Workup ongoing. Plasma exchange per Neurology. Abhi Khan MD Mar 19, 2018 13:20
[2018-03-20] VITALS (17 sets, daily range): BP systolic 120–149; BP diastolic 60–77; PULSE 57–81; RESP 16–20; TEMP 97.3–98.9; O2SAT 96–99
--- NOTE | 2018-03-20 07:57 | PD.ONC.PN ---
Subjective Subjective Remarks Patient is frustrated that he still has lower extremity weakness. The plasma exchange does not seems to work He tolerated to plasma exchange well. He denies any chest pain or palpitation. He has no shortness of breath. He denies any bleeding. Objective Data Date Time Temp Pulse Resp B/P (MAP) Pulse Ox O2 Delivery O2 Flow Rate FiO2 03/20/18 07:48 147/69 (95) 03/20/18 07:47 134/73 (93) 03/20/18 07:46 97.5 63 20 137/68 (91) 98 03/20/18 04:00 98.0 68 18 120/68 (85) 98 03/20/18 00:00 63 03/20/18 00:00 98.8 64 16 125/65 (85) 96 03/19/18 20:00 65 03/19/18 20:00 97.9 65 16 126/63 (84) 95 120/64 (82) 140/69 (92) 03/19/18 16:00 68 03/19/18 15:00 60 19 115/56 97 03/19/18 15:00 98.3 68 17 126/68 (87) 96 03/19/18 15:00 134/68 (90) 03/19/18 15:00 75 131/64 (86) 03/19/18 14:45 98.0 59 18 112/59 97 03/19/18 14:31 98.2 59 18 113/62 99 03/19/18 13:55 19 03/19/18 11:48 131/68 (89) 137/74 (95) 03/19/18 11:45 97.5 66 16 118/63 (81) 98 03/19/18 08:00 65 03/19/18 08:00 98.0 64 16 124/70 (88) 96 142/74 (96) 127/69 (88) 03/20/18 03/20/18 03/20/18 07:00 15:00 23:00 Intake Total 460 ml Output Total 0 ml Balance 460 ml Result Diagram: 03/19/18 0643 Administered Medications Medications (Trade) Dose Ordered Sig/Nancy Route PRN Reason Start Time Stop Time Status Last Admin Dose Admin Sodium Chloride (NS Flush) 2 ml BID IV FLUSH 03/09/18 21:00 03/19/18 21:29 Pantoprazole Sodium (Protonix) 20 mg DAILY PO 03/10/18 09:00 03/19/18 10:02 Loratadine (Claritin) 10 mg DAILY PO 03/13/18 09:00 03/19/18 10:02 Albumin Human 3,500 ml @ 250 mls/hr EVERY OTHER DAY IV 03/16/18 09:00 03/24/18 22:59 03/18/18 10:28 Methylprednisolone Sodium Succinate (SoluMEDROL INJ) 125 mg EVERY OTHER DAY IV PUSH 03/16/18 09:00 03/24/18 09:01 03/18/18 08:43 Famotidine (Pepcid Inj) 20 mg EVERY OTHER DAY IV PUSH 03/16/18 09:00 03/24/18 09:01 03/18/18 09:00 Calcium Gluconate 3 gm/Sodium Chloride 180 ml @ 90 mls/hr EVERY OTHER DAY IV 03/16/18 09:00 03/24/18 10:59 03/18/18 10:29 Sodium Chloride 1,000 ml @ 0 mls/hr Q0M IV 03/16/18 08:00 03/24/18 09:01 03/18/18 10:30 Anticoagulant Citrate Dextose Jannette A (Acd Formula Inj) 1,000 ml EVERY OTHER DAY OTHER 03/16/18 09:00 03/24/18 09:01 03/18/18 10:29 Heparin Sodium (Porcine) (Heparin Inj) 1,000 units UNSCH PRN IV FLUSH FLUSH AFTER USING IV ACCESS 03/16/18 08:00 03/24/18 09:01 03/18/18 10:30 Acetaminophen (Tylenol) 650 mg Q4H PRN PO SEE LABEL COMMENTS 03/19/18 09:30 03/19/18 12:55 Diphenhydramine HCl (Benadryl) 25 mg Q4H PRN PO SEE LABEL COMMENTS 03/19/18 09:30 03/19/18 12:55 Objective Remarks GENERAL: Well-nourished, well-developed patient. Sitting in chair. SKIN: Warm and dry. HEAD: Normocephalic. EYES: No scleral icterus. No injection or drainage. NECK: Supple, trachea midline. No JVD or lymphadenopathy. LYMPHATIC: No adenopathy. CARDIOVASCULAR: Regular rate and rhythm without murmurs. RESPIRATORY: Breath sounds equal bilaterally. No accessory muscle use. GASTROINTESTINAL: Abdomen soft, non-tender, nondistended. EXTREMITIES: No cyanosis, or edema. MUSCULOSKELETAL: Bilateral lower extremity weakness. NEUROLOGICAL: No obvious focal deficit. Awake, alert, and oriented x3. PSYCHIATRIC: Appropriate mood and affect; insight and judgment normal. Assessment/Plan Problem List: (1) plasma exchange Plan: 03/18: PEX #2 03/16: vas-cath placed, PEX #1 --LP showed slight elevation in total protein. --Lyme disease evaluation was negative. --Paraneoplastic labs are still pending. --had a presentation of dizziness, history of chronic peripheral neuropathy who developed ataxia to the point that he is unable to walk. 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 hematology consulted for plasma exchange. history of noninvasive bladder cancer. Histoplasmosis. Gastroesophageal reflux disease. Hyperlipidemia. Hypertension. Chronic idiopathic lower extremity neuropathy. Plan 1. proceed with PEX #3/5 today 2. monitor CBC, coags. 3. Transfuse cryoprecipitate if fibrinogen is less than 100. Luis Alberto Cornelius MD Mar 20, 2018 07:57
[2018-03-20] MEDS: SODIUM CHLORIDE 0.9% FLUSH 10 ML FLUSH IV FLUSH SCH ×2 (08:25→20:36)
[2018-03-20] MEDS: PANTOPRAZOLE SOD 20 MG DELAYED RELEASE TAB PO SCH (08:25)
[2018-03-20] MEDS: LORATADINE 10 MG TAB PO SCH (08:25)
[2018-03-20] MEDS: FAMOTIDINE 20 MG/2 ML VIAL IV PUSH SCH (08:26)
--- NOTE | 2018-03-20 10:28 | HHI.PR ---
Subjective Remarks PLEX #3 can walk with walker but not w/o. frustrated because he is active and wants to be able to walk as before. no weakness in hands arms or legs per pt. Objective Vital Signs Date Time Temp Pulse Resp B/P (MAP) Pulse Ox O2 Delivery O2 Flow Rate FiO2 03/20/18 09:25 57 03/20/18 07:48 147/69 (95) 03/20/18 07:47 134/73 (93) 03/20/18 07:46 97.5 63 20 137/68 (91) 98 03/20/18 04:00 98.0 68 18 120/68 (85) 98 03/20/18 00:00 63 03/20/18 00:00 98.8 64 16 125/65 (85) 96 03/19/18 20:00 65 03/19/18 20:00 97.9 65 16 126/63 (84) 95 120/64 (82) 140/69 (92) 03/19/18 16:00 68 03/19/18 15:00 60 19 115/56 97 03/19/18 15:00 98.3 68 17 126/68 (87) 96 03/19/18 15:00 134/68 (90) 03/19/18 15:00 75 131/64 (86) 03/19/18 14:45 98.0 59 18 112/59 97 03/19/18 14:31 98.2 59 18 113/62 99 03/19/18 13:55 19 03/19/18 11:48 131/68 (89) 137/74 (95) 03/19/18 11:45 97.5 66 16 118/63 (81) 98 I/O 03/19/18 03/19/18 03/19/18 03/20/18 03/20/18 03/20/18 07:00 15:00 23:00 07:00 15:00 23:00 Intake Total 400 ml 2 ml 1013 ml 460 ml Output Total 0 ml 0 ml 0 ml Balance 400 ml 2 ml 1013 ml 460 ml Intake Oral 400 ml 450 ml 460 ml IV Total 333 ml Cryoprecipitate 220 ml Blood Product IV Normal Saline Flush 2 ml 10 ml Output Urine Total 0 ml 0 ml 0 ml # Voids 2 # Bowel Movements 0 0 0 Result Diagram: 03/19/18 0643 Objective Remarks awake alert perrla no nystagmus nl speech motor grossly normal mild fdi atrophy absent dtrs in legs toes silent gait unable to assess as having PLEX#3-defer to PT cont pt-ot plex #3 today #4 tue and #5 tuesday can d/c Tuesday and if not better will set up as outpt ivig for 3 days. continue daily PT will cont follow. Tonya Silva MD Mar 20, 2018 10:28
--- NOTE | 2018-03-20 10:55 | HHI.PR ---
Subjective Remarks Resting in bed, at the bedside No acute issues still not feeling too much improvement status post 3 out of 5 plasmapheresis session Objective Vitals Vital Signs Date Time Temp Pulse Resp B/P (MAP) Pulse Ox O2 Delivery O2 Flow Rate FiO2 03/20/18 09:25 57 03/20/18 07:48 147/69 (95) 03/20/18 07:47 134/73 (93) 03/20/18 07:46 97.5 63 20 137/68 (91) 98 03/20/18 04:00 98.0 68 18 120/68 (85) 98 03/20/18 00:00 63 03/20/18 00:00 98.8 64 16 125/65 (85) 96 03/19/18 20:00 65 03/19/18 20:00 97.9 65 16 126/63 (84) 95 120/64 (82) 140/69 (92) 03/19/18 16:00 68 03/19/18 15:00 60 19 115/56 97 03/19/18 15:00 98.3 68 17 126/68 (87) 96 03/19/18 15:00 134/68 (90) 03/19/18 15:00 75 131/64 (86) 03/19/18 14:45 98.0 59 18 112/59 97 03/19/18 14:31 98.2 59 18 113/62 99 03/19/18 13:55 19 03/19/18 11:48 131/68 (89) 137/74 (95) 03/19/18 11:45 97.5 66 16 118/63 (81) 98 I/O 03/19/18 03/19/18 03/19/18 03/20/18 03/20/18 03/20/18 07:00 15:00 23:00 07:00 15:00 23:00 Intake Total 400 ml 2 ml 1013 ml 460 ml Output Total 0 ml 0 ml 0 ml Balance 400 ml 2 ml 1013 ml 460 ml Intake Oral 400 ml 450 ml 460 ml IV Total 333 ml Cryoprecipitate 220 ml Blood Product IV Normal Saline Flush 2 ml 10 ml Output Urine Total 0 ml 0 ml 0 ml # Voids 2 # Bowel Movements 0 0 0 Result Diagram: 03/19/18 0643 Objective Remarks GENERAL: This is a well-nourished, well-developed patient, in no apparent distress. CARDIOVASCULAR: RRR, no gallops, or rubs. RESPIRATORY: Bibasilar crackles GASTROINTESTINAL: Abdomen soft, non-tender, nondistended. Positive bowel sounds MUSCULOSKELETAL: Extremities without clubbing, cyanosis, or edema. Pedal pulses appreciated NEUROLOGICAL: Awake and alert. Moves all extremity. Normal speech. Unstable gait/ataxic Procedures none A/P Problem List: (1) Ataxia ICD Code: R27.0 - Ataxia, unspecified Status: Acute Assessment and Plan 77-year-old male with: 03/16: Status post 1 session of plasma exchange, continue close monitoring, appreciate neurology and hematology medical record assistant --LP showed slight elevation in total protein. --Lyme disease evaluation was negative. --Paraneoplastic labs are still pending. --had a presentation of dizziness, history of chronic peripheral neuropathy who developed ataxia to the point that he is unable to walk. 03/17:Again we discussed in length that we need to monitor closely for any respiratory symptoms, continue he will have another session tomorrow, and it may take more than one session to show improvement 6/2: Plasmapheresis session #2 today, continue monitoring, follow with hematology and Neurology 6/3: Continue current care with plasmapheresis, appreciate hematology and neurology assistance, today fibrinogen level is low 90, hematology ordered cryoprecipitate Most of the antibody workup is negative except for mycoplasma pneumonia IgG was positive 6/4: Patient had a third session of plasmapheresis out of 5, still not feeling too much of improvement will continue following closely neuro check monitor for any respiratory compromise A/P: Ataxia, onset over the past month, worsening. This is persistent, etiology to be determined. Patient was found to have a tick bite on admission Generalized weakness Unsafe to go home = Patient and both states it is unsafe to go home at this time. He has been falling at home. Fall precautions = PT recommends inpatient rehab = F/U copper levels, SPEP, RPR and lyme titer = Neurology ff. Repeat MRI negative. Patient has underwent extensive imaging workup negative. Lumbar puncture and Paraneoplastic labs have been ordered Appreciate ID following. Lyme Ab has been ordered - Neg Symptoms seems to have started prior to tick bite. Diagnosis is uncertain at this time and there are multiple sent out labs ordered. Neurology recommended plasma exchange and Hematology was consulted. Vas cath placed/ GERD. Chronic. Continue PPI. Hyperlipidemia. Continue statin. Chronic allergies. Resume antihistamine. Recent subjective weight loss. Patient reports decreased oral intake and has not been active. Hypertension. Blood pressure variable. Not orthostatic DVT proph with SCd and early ambulation Discharge Planning Martinez to evaluate. Workup ongoing. Plasma exchange per Neurology. Abhi Khan MD Mar 20, 2018 10:54
[2018-03-20] MEDS: ALBUMIN 5% INJ 3,500 ML IV SCH (12:23)
[2018-03-20] MEDS: CALCIUM GLUCONATE INJ 3 GM in SODIUM CHLOR 0.9% 250 ML INJ 150 ML IV SCH (12:24)
[2018-03-20] MEDS: ANTICOAGULANT CITRATE DEXTROSE SOLN-A 1L OTHER SCH (12:24)
[2018-03-20 17:59] LABS: HEMATOCRIT 39.7 % (39.0-51.0); HEMOGLOBIN 13.4 GM/DL (13.0-17.0); MEAN CELL VOLUME 93.1 FL (80.0-100.0); MEAN CORPUSCULAR HEMOGLOBIN 31.5 PG (27.0-34.0); MEAN CORPUSCULAR HGB CONC 33.8 % (32.0-36.0); MEAN PLATELET VOLUME 8.5 FL (7.0-11.0); PLATELET COUNT 150 TH/MM3 (150-450); RED BLOOD COUNT 4.26 MIL/MM3 (4.50-5.90); WHITE BLOOD COUNT 7.9 TH/MM3 (4.0-11.0)
[2018-03-20 18:22] LABS: INTERNATIONAL NORMALIZED RATIO 1.3 RATIO; PROTHROMBIN TIME - PATIENT 12.7 SEC (9.8-11.6)
[2018-03-21] VITALS (13 sets, daily range): BP systolic 119–140; BP diastolic 63–75; PULSE 59–70; RESP 18–20; TEMP 97.5–98.5; O2SAT 94–97
[2018-03-21 05:30] LABS: AUTOMATED NEUTROPHIL # 3.7 TH/MM3 (1.8-7.7); BASOPHIL % 0.4 % (0.0-2.0); EOSINOPHIL # 0.2 TH/MM3 (0-0.4); HEMATOCRIT 37.1 % (39.0-51.0); HEMOGLOBIN 12.7 GM/DL (13.0-17.0); LYMPH % 23.7 % (9.0-44.0); LYMPHOCYTE # 1.4 TH/MM3 (1.0-4.8); MEAN CELL VOLUME 92.8 FL (80.0-100.0); MEAN CORPUSCULAR HEMOGLOBIN 31.9 PG (27.0-34.0); MEAN CORPUSCULAR HGB CONC 34.4 % (32.0-36.0); MEAN PLATELET VOLUME 8.4 FL (7.0-11.0); MONOCYTE # 0.5 TH/MM3 (0-0.9); NEUT % 63.9 % (16.0-70.0); PLATELET COUNT 134 TH/MM3 (150-450); RED BLOOD COUNT 3.99 MIL/MM3 (4.50-5.90); RED CELL DISTRIBUTION WIDTH 14.1 % (11.6-17.2); WHITE BLOOD COUNT 5.8 TH/MM3 (4.0-11.0)
[2018-03-21 05:42] LABS: PROTHROMBIN TIME - PATIENT 10.4 SEC (9.8-11.6)
[2018-03-21 05:56] LABS: BICARBONATE 24.1 MEQ/L (21.0-32.0); CALCIUM 8.9 MG/DL (8.5-10.1); CREATININE 0.94 MG/DL (0.60-1.30)
[2018-03-21] MEDS: PANTOPRAZOLE SOD 20 MG DELAYED RELEASE TAB PO SCH (08:11)
[2018-03-21] MEDS: LORATADINE 10 MG TAB PO SCH (08:11)
[2018-03-21] MEDS: SODIUM CHLORIDE 0.9% FLUSH 10 ML FLUSH IV FLUSH SCH ×2 (08:12→21:35)
[2018-03-21] MEDS ORDERED: LOSA50TA2 PO (08:14)
[2018-03-21] MEDS ORDERED: SIMV40TA PO (08:16)
[2018-03-21 10:26] LABS: LYME IGG BANDS CSF NO BANDS; LYME IGM BANDS CSF NO BANDS
--- NOTE | 2018-03-21 11:14 | PD.ONC.PN ---
Subjective Subjective Remarks Afebrile overnight. patient states the plasma exchange has not made any improvements in his ataxia. he is disappointed. no problems with bleeding. Objective Data Date Time Temp Pulse Resp B/P (MAP) Pulse Ox O2 Delivery O2 Flow Rate FiO2 03/21/18 08:51 62 03/21/18 08:00 128/75 (92) 03/21/18 08:00 122/71 (88) 03/21/18 07:59 98.2 66 20 120/73 (89) 95 03/21/18 04:30 59 03/21/18 04:00 97.9 61 18 124/68 (86) 96 03/21/18 00:30 64 03/21/18 00:00 97.5 65 18 140/66 (90) 97 03/20/18 20:52 97.3 65 18 134/65 96 03/20/18 20:31 97.9 69 18 137/67 96 03/20/18 20:30 74 03/20/18 20:00 66 18 134/65 (88) 96 03/20/18 20:00 97.3 65 18 132/67 (88) 96 03/20/18 20:00 71 18 149/77 (101) 96 03/20/18 17:53 68 03/20/18 16:27 123/60 (81) 03/20/18 16:27 128/61 (83) 03/20/18 16:26 98.9 69 20 133/63 (86) 97 03/20/18 13:37 75 03/20/18 12:42 147/67 (93) 03/20/18 12:41 145/67 (93) 03/20/18 12:40 97.9 81 20 139/70 (93) 99 Result Diagram: 03/21/18 0455 03/21/18 0455 Laboratory Results Laboratory Tests Test 03/20/18 17:15 03/21/18 04:55 White Blood Count 7.9 TH/MM3 5.8 TH/MM3 Red Blood Count 4.26 MIL/MM3 3.99 MIL/MM3 Hemoglobin 13.4 GM/DL 12.7 GM/DL Hematocrit 39.7 % 37.1 % Mean Corpuscular Volume 93.1 FL 92.8 FL Mean Corpuscular Hemoglobin 31.5 PG 31.9 PG Mean Corpuscular Hemoglobin Concent 33.8 % 34.4 % Red Cell Distribution Width 14.0 % 14.1 % Platelet Count 150 TH/MM3 134 TH/MM3 Mean Platelet Volume 8.5 FL 8.4 FL Prothrombin Time 12.7 SEC 10.4 SEC Prothromb Time International Ratio 1.3 RATIO 1.0 RATIO Activated Partial Thromboplast Time 31.5 SEC 26.1 SEC Fibrinogen 92 mg/dL 196 mg/dL Neutrophils (%) (Auto) 63.9 % Lymphocytes (%) (Auto) 23.7 % Monocytes (%) (Auto) 9.0 % Eosinophils (%) (Auto) 3.0 % Basophils (%) (Auto) 0.4 % Neutrophils # (Auto) 3.7 TH/MM3 Lymphocytes # (Auto) 1.4 TH/MM3 Monocytes # (Auto) 0.5 TH/MM3 Eosinophils # (Auto) 0.2 TH/MM3 Basophils # (Auto) 0.0 TH/MM3 CBC Comment DIFF FINAL Differential Comment Blood Urea Nitrogen 19 MG/DL Creatinine 0.94 MG/DL Random Glucose 93 MG/DL Calcium Level 8.9 MG/DL Sodium Level 143 MEQ/L Potassium Level 3.9 MEQ/L Chloride Level 109 MEQ/L Carbon Dioxide Level 24.1 MEQ/L Anion Gap 10 MEQ/L Estimat Glomerular Filtration Rate 78 ML/MIN Administered Medications Medications (Trade) Dose Ordered Sig/Nancy Route PRN Reason Start Time Stop Time Status Last Admin Dose Admin Sodium Chloride (NS Flush) 2 ml BID IV FLUSH 03/09/18 21:00 03/21/18 08:12 Pantoprazole Sodium (Protonix) 20 mg DAILY PO 03/10/18 09:00 03/21/18 08:11 Loratadine (Claritin) 10 mg DAILY PO 03/13/18 09:00 03/21/18 08:11 Albumin Human 3,500 ml @ 250 mls/hr EVERY OTHER DAY IV 03/16/18 09:00 03/24/18 22:59 03/20/18 12:23 Methylprednisolone Sodium Succinate (SoluMEDROL INJ) 125 mg EVERY OTHER DAY IV PUSH 03/16/18 09:00 03/24/18 09:01 03/18/18 08:43 Famotidine (Pepcid Inj) 20 mg EVERY OTHER DAY IV PUSH 03/16/18 09:00 03/24/18 09:01 03/20/18 08:26 Calcium Gluconate 3 gm/Sodium Chloride 180 ml @ 90 mls/hr EVERY OTHER DAY IV 03/16/18 09:00 03/24/18 10:59 03/20/18 12:24 Sodium Chloride 1,000 ml @ 0 mls/hr Q0M IV 03/16/18 08:00 03/24/18 09:01 03/18/18 10:30 Anticoagulant Citrate Dextose Jannette A (Acd Formula Inj) 1,000 ml EVERY OTHER DAY OTHER 03/16/18 09:00 03/24/18 09:01 03/20/18 12:24 Heparin Sodium (Porcine) (Heparin Inj) 1,000 units UNSCH PRN IV FLUSH FLUSH AFTER USING IV ACCESS 03/16/18 08:00 03/24/18 09:01 03/18/18 10:30 Acetaminophen (Tylenol) 650 mg Q4H PRN PO SEE LABEL COMMENTS 03/19/18 09:30 03/19/18 12:55 Diphenhydramine HCl (Benadryl) 25 mg Q4H PRN PO SEE LABEL COMMENTS 03/19/18 09:30 03/19/18 12:55 Objective Remarks GENERAL: pleasant male, sitting up in [facility] SKIN: Warm and dry. vas-cath, no bleeding. HEAD: Normocephalic. EYES: no injection or drainage. NECK: Supple, trachea midline. CARDIOVASCULAR: Regular rate and rhythm RESPIRATORY: Breath sounds equal bilaterally. No accessory muscle use. GASTROINTESTINAL: Abdomen soft, non-tender, nondistended. EXTREMITIES: No cyanosis NEUROLOGICAL: awake, alert. normal speech. moving extremities. unable to perform finger to nose with either hand with eyes closed. Assessment/Plan Problem List: (1) plasma exchange Plan: 03/20: PEX#3 03/18: PEX #2 03/16: vas-cath placed, PEX #1 --LP showed slight elevation in total protein. --Lyme disease evaluation was negative. --Paraneoplastic labs are still pending. --had a presentation of dizziness, history of chronic peripheral neuropathy who developed ataxia to the point that he is unable to walk. 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 hematology consulted for plasma exchange. history of noninvasive bladder cancer. Histoplasmosis. Gastroesophageal reflux disease. Hyperlipidemia. Hypertension. Chronic idiopathic lower extremity neuropathy. Plan 1. off day today 2. monitor CBC, coags. 3. next PEX tomorrow. Attending Statement The exam, history, and the medical decision-making described in the above note were completed with the assistance of the mid-level provider. I reviewed and agree with the findings presented. I attest that I had a [id number] encounter with the patient on the same day, and personally performed and documented my assessment and findings in the medical record. Patient is sitting in the chair trying to do his exercise. He still has weakness and ataxia, he has no improvement since the plasmapheresis. He has no bleeding. Fibrinogen has trended up with cryoprecipitate transfusion. He will have plasma pheresis again tomorrow and Tuesday. Tiffani Mart Mar 21, 2018 11:14 Luis Alberto Cornelius MD Mar 21, 2018 17:14
--- NOTE | 2018-03-21 12:53 | HHI.PR ---
Subjective Remarks Still not noticing improvement on his gait When for plasma exchange more This with him and his Objective Vitals Vital Signs Date Time Temp Pulse Resp B/P (MAP) Pulse Ox O2 Delivery O2 Flow Rate FiO2 03/21/18 12:33 134/72 (92) 03/21/18 12:33 130/63 (85) 03/21/18 12:32 98.5 68 20 119/63 (81) 94 03/21/18 08:51 62 03/21/18 08:00 128/75 (92) 03/21/18 08:00 122/71 (88) 03/21/18 07:59 98.2 66 20 120/73 (89) 95 03/21/18 04:30 59 03/21/18 04:00 97.9 61 18 124/68 (86) 96 03/21/18 00:30 64 03/21/18 00:00 97.5 65 18 140/66 (90) 97 03/20/18 20:52 97.3 65 18 134/65 96 03/20/18 20:31 97.9 69 18 137/67 96 03/20/18 20:30 74 03/20/18 20:00 66 18 134/65 (88) 96 03/20/18 20:00 97.3 65 18 132/67 (88) 96 03/20/18 20:00 71 18 149/77 (101) 96 03/20/18 17:53 68 03/20/18 16:27 123/60 (81) 03/20/18 16:27 128/61 (83) 03/20/18 16:26 98.9 69 20 133/63 (86) 97 03/20/18 13:37 75 I/O 03/20/18 03/20/18 03/20/18 03/21/18 03/21/18 03/21/18 06:59 14:59 22:59 06:59 14:59 22:59 Intake Total 460 ml 283 ml Output Total 0 ml 400 ml Balance 460 ml -400 ml 283 ml Intake Oral 460 ml Cryoprecipitate 223 ml Blood Product IV Normal Saline Flush 60 ml Output Urine Total 0 ml 400 ml # Voids 2 2 3 # Bowel Movements 0 Result Diagram: 03/21/185 03/21/18454 Objective Remarks GENERAL: This is a well-nourished, well-developed patient, in no apparent distress. CARDIOVASCULAR: RRR, no gallops, or rubs. RESPIRATORY: Bibasilar crackles GASTROINTESTINAL: Abdomen soft, non-tender, nondistended. Positive bowel sounds MUSCULOSKELETAL: Extremities without clubbing, cyanosis, or edema. Pedal pulses appreciated NEUROLOGICAL: Awake and alert. Moves all extremity. Normal speech. Unstable gait/ataxic Procedures none A/P Problem List: (1) Ataxia ICD Code: R27.0 - Ataxia, unspecified Status: Acute Assessment and Plan 77-year-old male with: 03/16: Status post 1 session of plasma exchange, continue close monitoring, appreciate neurology and hematology contract assistant --LP showed slight elevation in total protein. --Lyme disease evaluation was negative. --Paraneoplastic labs are still pending. --had a presentation of dizziness, history of chronic peripheral neuropathy who developed ataxia to the point that he is unable to walk. 03/17:Again we discussed in length that we need to monitor closely for any respiratory symptoms, continue he will have another session tomorrow, and it may take more than one session to show improvement 6/2: Plasmapheresis session #2 today, continue monitoring, follow with hematology and Neurology 6/3: Continue current care with plasmapheresis, appreciate hematology and neurology assistance, today fibrinogen level is low 90, hematology ordered cryoprecipitate Most of the antibody workup is negative except for mycoplasma pneumonia IgG was positive 6/: Patient had a third session of plasmapheresis out of 5, still not feeling too much of improvement will continue following closely neuro check monitor for any respiratory compromise 6: Going for plasma exchange tomorrow session number 4 out of 5 A/P: Ataxia, onset over the past month, worsening. This is persistent, etiology to be determined. Patient was found to have a tick bite on admission Generalized weakness Unsafe to go home = Patient and both states it is unsafe to go home at this time. He has been falling at home. Fall precautions = PT recommends inpatient rehab = F/U copper levels, SPEP, RPR and lyme titer = Neurology ff. Repeat MRI negative. Patient has underwent extensive imaging workup negative. Lumbar puncture and Paraneoplastic labs have been ordered Appreciate ID following. Lyme Ab has been ordered - Neg Symptoms seems to have started prior to tick bite. Diagnosis is uncertain at this time and there are multiple sent out labs ordered. Neurology recommended plasma exchange and Hematology was consulted. Vas cath placed/ GERD. Chronic. Continue PPI. Hyperlipidemia. Continue statin. Chronic allergies. Resume antihistamine. Recent subjective weight loss. Patient reports decreased oral intake and has not been active. Hypertension. Blood pressure variable. Not orthostatic DVT proph with SCd and early ambulation Discharge Planning Martinez to evaluate. Workup ongoing. Plasma exchange per Neurology. Abhi Khan MD Mar 21, 2018 12:53
--- NOTE | 2018-03-21 20:22 | PD.CONS ---
[facility] Service Rehabilitation Medicine Consult Requested By Mickey Mata MD Reason for Consult Comprehensive rehabilitation evaluation. Primary Care Physician Lynne Encinas MD History of Present Illness Juventino Kc is a 77-year-old [id number] male admitted to [facility] 03/11/18 with one-month history of ataxia, multiple falls, weight loss and muscle wasting. He was noted to have had a tick bite. Head CT showed senescent changes without acute intracranial abnormality. Cervical spine MRI showed broad-based posterior disc bulges between C3 and C7 resulting in some effacement of anterior thecal sac. No cord compression or cord edema. Normal alignment of the cervical spine. Brain MRI showed no acute changes. LP showed elevated protein. 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 Paraneoplastic labs are pending. Hematology/oncology is following. Review of Systems Constitutional: COMPLAINS OF: Fatigue Eyes: DENIES: Diplopia Ears, nose, mouth, throat: DENIES: Throat pain Respiratory: DENIES: Cough, Shortness of breath Cardiovascular: DENIES: Chest pain Gastrointestinal: DENIES: Abdominal pain Genitourinary: DENIES: Urinary incontinence Musculoskeletal: DENIES: Back pain Integumentary: DENIES: Rash Hematologic/lymphatic: DENIES: Bruising Immunologic/allergic: DENIES: Urticaria Neurologic: COMPLAINS OF: Paresthesias, Poor Balance, DENIES: Headache, Localized weakness Psychiatric: DENIES: Confusion Past Family Social History Allergies: Coded Allergies: cephalexin (Unverified Allergy, Severe, Hives, 03/09/18) Past Medical History Neuropathy Hypertension Hyperlipidemia History of bladder cancer Histoplasmosis Past Surgical History Cataract removal Left hip surgery Partial lung lobectomy for histoplasmosis Current Medications Current Medications Medications (Trade) Dose Ordered Sig/Nancy Route Start Time Stop Time Status Last Admin (NS Flush) 2 ml UNSCH PRN IV FLUSH 03/09/18 18:00 (NS Flush) 2 ml BID IV FLUSH 03/09/18 21:00 03/21/18 08:12 (Narcan Inj) 0.4 mg UNSCH PRN IV PUSH 03/09/18 18:00 (Milk Of Magnesia Liq) 30 ml Q12H PRN PO 03/09/18 18:00 (Senokot) 17.2 mg Q12H PRN PO 03/09/18 18:00 (Dulcolax Supp) 10 mg DAILY PRN RECTAL 03/09/18 18:00 (Lactulose Liq) 30 ml DAILY PRN PO 03/09/18 18:00 (Protonix) 20 mg DAILY PO 03/10/18 09:00 03/21/18 08:11 (Claritin) 10 mg DAILY PO 03/13/18 09:00 03/21/18 08:11 Albumin Human 3,500 ml @ 250 mls/hr EVERY OTHER DAY IV 03/16/18 09:00 03/24/18 22:59 03/20/18 12:23 (SoluMEDROL INJ) 125 mg EVERY OTHER DAY IV PUSH 03/16/18 09:00 03/24/18 09:01 03/18/18 08:43 (Pepcid Inj) 20 mg EVERY OTHER DAY IV PUSH 03/16/18 09:00 03/24/18 09:01 03/20/18 08:26 (Benadryl Inj) 25 mg UNSCH PRN IV PUSH 03/16/18 08:00 03/24/18 09:01 Calcium Gluconate 3 gm/Sodium Chloride 180 ml @ 90 mls/hr EVERY OTHER DAY IV 03/16/18 09:00 03/24/18 10:59 03/20/18 12:24 Sodium Chloride 1,000 ml @ 0 mls/hr Q0M IV 03/16/18 08:00 03/24/18 09:01 03/18/18 10:30 (Acd Formula Inj) 1,000 ml EVERY OTHER DAY OTHER 03/16/18 09:00 03/24/18 09:01 03/20/18 12:24 (Heparin Inj) 1,000 units UNSCH PRN IV FLUSH 03/16/18 08:00 03/24/18 09:01 03/18/18 10:30 (Tums Chew) 5,000 mg UNSCH PRN PO 03/16/18 08:00 03/24/18 09:01 (Tylenol) 650 mg Q4H PRN PO 03/19/18 09:30 03/19/18 12:55 (Benadryl) 25 mg Q4H PRN PO 03/19/18 09:30 03/19/18 12:55 Family History Mother: Dementia Father: Alcoholism Social History Prior to admission patient lived with his in [facility]. He has 2 alcoholic drinks per day. No tobacco use Exam I&O / VS 03/21/18 03/21/18 03/22/18 14:59 22:59 06:59 Intake Total 720 ml Balance 720 ml Intake Oral 720 ml # Voids 3 Vital Signs Date Time Temp Pulse Resp B/P (MAP) Pulse Ox O2 Delivery O2 Flow Rate FiO2 03/21/18 17:28 70 03/21/18 16:08 97.6 66 20 130/75 (93) 96 03/21/18 12:33 134/72 (92) 03/21/18 12:33 130/63 (85) 03/21/18 12:32 98.5 68 20 119/63 (81) 94 03/21/18 08:51 62 03/21/18 08:00 128/75 (92) 03/21/18 08:00 122/71 (88) 03/21/18 07:59 98.2 66 20 120/73 (89) 95 03/21/18 04:30 59 03/21/18 04:00 97.9 61 18 124/68 (86) 96 03/21/18 00:30 64 03/21/18 00:00 97.5 65 18 140/66 (90) 97 03/20/18 20:52 97.3 65 18 134/65 96 03/20/18 20:31 97.9 69 18 137/67 96 03/20/18 20:30 74 General: No acute distress, Other (Awake and alert; sitting up in bedside chair ) Respiratory: Lungs CTA, Non-labored respirations, BS equal Gastrointestinal: Positive Bowel Sounds, Non-Distended, Non-Tender Cardiovascular: Normal rate, No edema, Regular Rhythm Skin: No rash Musculoskeletal: No calf tenderness Psychiatric: Cooperative, Appropriate mood & affect Orientation: oriented to Self, oriented to Place, oriented to Time, oriented to Situation Neurologic: Pupils (PERRLA), EOM (Intact with no nystagmus), Facial Symmetry ( Symmetric), Speech (Clear) Motor: Right Upper Extremity (5/5), Left Upper Extremity (5/5), Right Lower Extremity (5/5), Left Lower Extremity (5/5) Sensory Decreased distal to the ankles bilaterally Babinski: Negative Clonus: Negative Exam Comments Coordination is impaired with [id number] testing Assessment and Plan Diagnosis: (1) Ataxia ICD Codes: R27.0 - Ataxia, unspecified Status: Acute Assessment 1. 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 History of neuropathy 3. Hypertension 4. Hyperlipidemia 5. History of partial lung lobectomy for histoplasmosis 6. History of bladder cancer Plan 1. Patient is now ambulating 500 feet contact guard with a rolling walker and standby assistance for transfers. Balance is fair. Continue to mobilize with careful supervision for fall prevention 2. OT addressing ADLs and now minimal assistance with set up. 3. Case management is addressing discharge planning. Patient will need continued home health and equipment 4. Will follow while hospitalized and at discharge as appropriate Thank you for this consult Malorie Zuniga MD Mar 21, 2018 20:22
[2018-03-22] VITALS (11 sets, daily range): BP systolic 118–143; BP diastolic 58–79; PULSE 60–109; RESP 16–18; TEMP 97.6–97.9; O2SAT 95–97
[2018-03-22] MEDS: LORATADINE 10 MG TAB PO SCH (08:12)
[2018-03-22] MEDS: PANTOPRAZOLE SOD 20 MG DELAYED RELEASE TAB PO SCH (08:12)
[2018-03-22] MEDS: FAMOTIDINE 20 MG/2 ML VIAL IV PUSH SCH (08:12)
[2018-03-22] MEDS: SODIUM CHLORIDE 0.9% FLUSH 10 ML FLUSH IV FLUSH SCH ×2 (08:13→21:14)
[2018-03-22] MEDS: methylPREDNISolone SOD SUCC 125 MG/2 ML VIAL IV PUSH SCH (08:13)
[2018-03-22] MEDS: CALCIUM GLUCONATE INJ 3 GM in SODIUM CHLOR 0.9% 250 ML INJ 150 ML IV SCH (09:00)
[2018-03-22] MEDS: ALBUMIN 5% INJ 3,500 ML IV SCH (09:00)
[2018-03-22] MEDS: ANTICOAGULANT CITRATE DEXTROSE SOLN-A 1L OTHER SCH (09:00)
[2018-03-22 09:50] LABS: PROTHROMBIN TIME - PATIENT 9.9 SEC (9.8-11.6)
[2018-03-22 09:55] LABS: AUTOMATED NEUTROPHIL # 3.7 TH/MM3 (1.8-7.7); BASOPHIL % 0.3 % (0.0-2.0); EOSINOPHIL # 0.2 TH/MM3 (0-0.4); HEMATOCRIT 40.9 % (39.0-51.0); HEMOGLOBIN 13.9 GM/DL (13.0-17.0); LYMPH % 24.2 % (9.0-44.0); LYMPHOCYTE # 1.4 TH/MM3 (1.0-4.8); MEAN CELL VOLUME 93.4 FL (80.0-100.0); MEAN CORPUSCULAR HEMOGLOBIN 31.7 PG (27.0-34.0); MEAN CORPUSCULAR HGB CONC 33.9 % (32.0-36.0); MEAN PLATELET VOLUME 8.2 FL (7.0-11.0); MONO % 8.7 % (0.0-8.0); MONOCYTE # 0.5 TH/MM3 (0-0.9); NEUT % 63.8 % (16.0-70.0); PLATELET COUNT 145 TH/MM3 (150-450); RED BLOOD COUNT 4.38 MIL/MM3 (4.50-5.90); RED CELL DISTRIBUTION WIDTH 14.1 % (11.6-17.2); WHITE BLOOD COUNT 5.8 TH/MM3 (4.0-11.0)
--- NOTE | 2018-03-22 14:17 | PD.ONC.PN ---
Subjective Subjective Remarks Afebrile Patient seen and examined in the dialysis room. He is currently undergoing plasma exchange #4 today. He reports he still cannot tell any difference since treatment started He still reports being unable to stand with significant ataxia No bleeding Objective Data Date Time Temp Pulse Resp B/P (MAP) Pulse Ox O2 Delivery O2 Flow Rate FiO2 03/22/18 08:02 87 141/66 (91) 03/22/18 08:01 143/68 (93) 03/22/18 08:00 63 03/22/18 08:00 97.9 63 16 137/75 (95) 95 03/22/18 04:30 60 03/22/18 00:30 60 03/21/18 20:30 65 03/21/18 20:00 98.2 66 18 137/67 (90) 95 03/21/18 17:28 70 03/21/18 16:08 97.6 66 20 130/75 (93) 96 Result Diagram: 03/22/18 0900 03/21/18 0455 Laboratory Results Laboratory Tests Test 03/22/18 09:00 White Blood Count 5.8 TH/MM3 Red Blood Count 4.38 MIL/MM3 Hemoglobin 13.9 GM/DL Hematocrit 40.9 % Mean Corpuscular Volume 93.4 FL Mean Corpuscular Hemoglobin 31.7 PG Mean Corpuscular Hemoglobin Concent 33.9 % Red Cell Distribution Width 14.1 % Platelet Count 145 TH/MM3 Mean Platelet Volume 8.2 FL Neutrophils (%) (Auto) 63.8 % Lymphocytes (%) (Auto) 24.2 % Monocytes (%) (Auto) 8.7 % Eosinophils (%) (Auto) 3.0 % Basophils (%) (Auto) 0.3 % Neutrophils # (Auto) 3.7 TH/MM3 Lymphocytes # (Auto) 1.4 TH/MM3 Monocytes # (Auto) 0.5 TH/MM3 Eosinophils # (Auto) 0.2 TH/MM3 Basophils # (Auto) 0.0 TH/MM3 CBC Comment DIFF FINAL Differential Comment Prothrombin Time 9.9 SEC Prothromb Time International Ratio 1.0 RATIO Activated Partial Thromboplast Time 25.2 SEC Fibrinogen 288 mg/dL Administered Medications Medications (Trade) Dose Ordered Sig/Nancy Route PRN Reason Start Time Stop Time Status Last Admin Dose Admin Sodium Chloride (NS Flush) 2 ml BID IV FLUSH 03/09/18 21:00 03/22/18 08:13 Pantoprazole Sodium (Protonix) 20 mg DAILY PO 03/10/18 09:00 03/22/18 08:12 Loratadine (Claritin) 10 mg DAILY PO 03/13/18 09:00 03/22/18 08:12 Albumin Human 3,500 ml @ 250 mls/hr EVERY OTHER DAY IV 03/16/18 09:00 03/24/18 22:59 03/20/18 12:23 Methylprednisolone Sodium Succinate (SoluMEDROL INJ) 125 mg EVERY OTHER DAY IV PUSH 03/16/18 09:00 03/24/18 09:01 03/22/18 08:13 Famotidine (Pepcid Inj) 20 mg EVERY OTHER DAY IV PUSH 03/16/18 09:00 03/24/18 09:01 03/22/18 08:12 Calcium Gluconate 3 gm/Sodium Chloride 180 ml @ 90 mls/hr EVERY OTHER DAY IV 03/16/18 09:00 03/24/18 10:59 03/20/18 12:24 Sodium Chloride 1,000 ml @ 0 mls/hr Q0M IV 03/16/18 08:00 03/24/18 09:01 03/18/18 10:30 Anticoagulant Citrate Dextose Jannette A (Acd Formula Inj) 1,000 ml EVERY OTHER DAY OTHER 03/16/18 09:00 03/24/18 09:01 03/20/18 12:24 Heparin Sodium (Porcine) (Heparin Inj) 1,000 units UNSCH PRN IV FLUSH FLUSH AFTER USING IV ACCESS 03/16/18 08:00 03/24/18 09:01 03/18/18 10:30 Acetaminophen (Tylenol) 650 mg Q4H PRN PO SEE LABEL COMMENTS 03/19/18 09:30 03/19/18 12:55 Diphenhydramine HCl (Benadryl) 25 mg Q4H PRN PO SEE LABEL COMMENTS 03/19/18 09:30 03/19/18 12:55 Objective Remarks GENERAL: Older male resting in stretcher currently getting plasma exchange #4 SKIN: Warm and dry. No bleeding Vas-Cath. HEAD: Normocephalic. EYES: no injection or drainage. NECK: Supple, trachea midline. CARDIOVASCULAR: Regular rate and rhythm RESPIRATORY: Breath sounds equal bilaterally. No accessory muscle use. GASTROINTESTINAL: Abdomen soft, non-tender, nondistended. EXTREMITIES: No cyanosis. No edema. NEUROLOGICAL: Awake and alert. Normal speech. Assessment/Plan Problem List: (1) plasma exchange Plan: 03/22: PEX #4 03/20: PEX#3 03/18: PEX #2 03/16: vas-cath placed, PEX #1 --LP showed slight elevation in total protein. --Lyme disease evaluation was negative. --Paraneoplastic labs are still pending. --had a presentation of dizziness, history of chronic peripheral neuropathy who developed ataxia to the point that he is unable to walk. 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 hematology consulted for plasma exchange. history of noninvasive bladder cancer. Histoplasmosis. Gastroesophageal reflux disease. Hyperlipidemia. Hypertension. Chronic idiopathic lower extremity neuropathy. Plan 1. Fibrinogen stable. 2. Plasma exchange #4 today 3. Defer to neurology if plans to continue past 5 treatments 4. Monitor CBC, coags Latisha Allred Mar 22, 2018 14:17
--- NOTE | 2018-03-22 15:26 | HHI.PR ---
Subjective Remarks The patient was discouraged. He says he feels exactly the same way he felt when he first started getting his symptoms. He says his next plasmapheresis is scheduled for Tuesday. He would like to go home at that time. He says he is still very unstable when ambulating. He is still has bad depth perception. Discussed with his family at the bedside. Objective Vitals Vital Signs Date Time Temp Pulse Resp B/P (MAP) Pulse Ox O2 Delivery O2 Flow Rate FiO2 03/22/18 12:00 67 03/22/18 08:02 87 141/66 (91) 03/22/18 08:01 143/68 (93) 03/22/18 08:00 63 03/22/18 08:00 97.9 63 16 137/75 (95) 95 03/22/18 04:30 60 03/22/18 00:30 60 03/21/18 20:30 65 03/21/18 20:00 98.2 66 18 137/67 (90) 95 03/21/18 17:28 70 03/21/18 16:08 97.6 66 20 130/75 (93) 96 I/O 03/21/18 03/21/18 03/21/18 03/22/18 03/22/18 03/22/18 07:00 15:00 23:00 07:00 15:00 23:00 Intake Total 720 ml Output Total 500 ml Balance 720 ml -500 ml Intake Oral 720 ml Output Urine Total 500 ml # Voids 3 3 Result Diagram: 03/22/18 0900 03/21/18 0455 Imaging Last Impressions Catheter Placement X-Ray 03/15/18 0000 Signed Impressions: CONCLUSION: 1. Uncomplicated line placement as above. Lumbar Puncture Fluoroscopy 03/14/18 0000 Signed Impressions: CONCLUSION: 1. Uncomplicated fluoroscopically guided lumbar puncture. Brain MRI 03/12/18 0819 Signed Impressions: CONCLUSION: 1. Unremarkable and stable follow-up MRI of the brain compared to the prior ex amination. 2. 1.9 cm mucous retention cyst in the base of the right maxillary sinus. Thoracic Spine MRI 03/11/18 0000 Signed Impressions: CONCLUSION: 1. Tiny right paracentral bulging T5-T6 2. Small right paracentral bulging T7-T8 3. Mild left lateral bulging at T10-T11 4. Mild degenerative changes. Chest CT 03/11/18 Signed Impressions: CONCLUSION: 1. No acute intrathoracic abnormality. In particular, no CT evidence to sugges t metastatic disease to the chest. 2. Coronary artery atherosclerotic calcifications. 3. Mild chronic interstitial changes. 4. Prior granulomatous disease. Cervical Spine MRI 03/11/18 Signed Impressions: CONCLUSION: 1. Unremarkable postcontrast images of the cervical spine. Abdomen/Pelvis CT 03/11/18 Signed Impressions: CONCLUSION: 1. The evaluation of the urinary bladder is limited partly due to beam hardeni ng artifact from a left hip prosthesis. I am not able to appreciate a discrete mass. 2. Prior granulomatous disease. 3. Small sclerotic focus involving the sacrum at the S1 level felt to relate t o a bone island. 4. 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 5. 2 nonobstructing renal calculi on the left. Neck Magnetic Resonance Angiography 03/10/18805 Signed Impressions: CONCLUSION: Minimal proximal right ICA stenosis Percent stenosis is calculated using the diameter of the stenotic region over t he diameter of the normal distal internal carotid artery Head Magnetic Resonance Angiography 03/10/18 08 Signed Impressions: CONCLUSION: No acute [place] of Moser vascular findings. Head CT 03/09/18 Signed Impressions: CONCLUSION: 1. Senescent changes without acute intracranial abnormality. Objective Remarks GENERAL: This is a well-nourished, well-developed patient, in no apparent distress. CARDIOVASCULAR: RRR, no gallops, or rubs. RESPIRATORY: CTAB. GASTROINTESTINAL: Abdomen soft, non-tender, nondistended. Positive bowel sounds MUSCULOSKELETAL: Extremities without clubbing, cyanosis, or edema. Pedal pulses appreciated NEUROLOGICAL: Awake and alert. Moves all extremity. Normal speech. Unstable gait/ataxic. Procedures none A/P Problem List: (1) Ataxia ICD Code: R27.0 - Ataxia, unspecified Status: Acute Assessment and Plan Ataxia Onset over the past month, worsening. This is persistent, etiology to be determined. Patient was found to have a tick bite on admission. Repeat MRI negative. Patient has underwent extensive imaging workup, negative. Lumbar puncture results noted.Neurology recommended plasma exchange and Hematology was consulted. Vas cath placed. - continue plasmapheresis. - follow up with neurology. - PT/ OT. - will likely need [facility]. GERD. Chronic. Continue PPI. Hyperlipidemia. Continue statin. Chronic allergies. Resume antihistamine. Recent subjective weight loss. Patient reports decreased oral intake and has not been active. - Ensure with meals. Hypertension. Blood pressure variable. Not orthostatic DVT proph with SCd and early ambulation Carmelo Moya DO Mar 22, 2018 15:26
[2018-03-23] VITALS (10 sets, daily range): BP systolic 115–153; BP diastolic 60–74; PULSE 61–102; RESP 17–18; TEMP 97.5–98; O2SAT 95–97
[2018-03-23 07:25] LABS: AUTOMATED NEUTROPHIL # 13.3 TH/MM3 (1.8-7.7); BASOPHIL % 0.1 % (0.0-2.0); HEMATOCRIT 40.4 % (39.0-51.0); HEMOGLOBIN 13.5 GM/DL (13.0-17.0); LYMPH % 7.4 % (9.0-44.0); LYMPHOCYTE # 1.1 TH/MM3 (1.0-4.8); MEAN CELL VOLUME 93.9 FL (80.0-100.0); MEAN CORPUSCULAR HEMOGLOBIN 31.4 PG (27.0-34.0); MEAN CORPUSCULAR HGB CONC 33.4 % (32.0-36.0); MEAN PLATELET VOLUME 8.5 FL (7.0-11.0); MONO % 4.5 % (0.0-8.0); MONOCYTE # 0.7 TH/MM3 (0-0.9); PLATELET COUNT 152 TH/MM3 (150-450); RED CELL DISTRIBUTION WIDTH 14.2 % (11.6-17.2); WHITE BLOOD COUNT 15.1 TH/MM3 (4.0-11.0)
[2018-03-23 07:35] LABS: INTERNATIONAL NORMALIZED RATIO 1.1 RATIO; PROTHROMBIN TIME - PATIENT 11.4 SEC (9.8-11.6)
[2018-03-23] MEDS: LORATADINE 10 MG TAB PO SCH (09:36)
[2018-03-23] MEDS: PANTOPRAZOLE SOD 20 MG DELAYED RELEASE TAB PO SCH (09:36)
[2018-03-23] MEDS: SODIUM CHLORIDE 0.9% FLUSH 10 ML FLUSH IV FLUSH SCH ×2 (09:39→21:53)
--- NOTE | 2018-03-23 10:56 | PD.ONC.PN ---
Subjective Subjective Remarks Afebrile overnight. Patient resting in room in nad. He is frustrated that he has not had improvement in his symptoms despite 4 plasma exchange. also didn't understand why he needed to receive cryo yesterday. we discussed the nature of plasma removal and need for replenishment of fibrinogen to prevent bleeding. Objective Data Date Time Temp Pulse Resp B/P (MAP) Pulse Ox O2 Delivery O2 Flow Rate FiO2 03/23/18 08:02 128/71 (90) 03/23/18 08:01 115/62 (79) 03/23/18 08:00 98.0 67 17 122/68 (86) 96 03/23/18 04:06 102 03/23/18 04:00 97.5 70 18 121/60 (80) 97 03/23/18 00:00 97.6 86 18 132/63 (86) 95 03/22/18 20:01 109 03/22/18 20:00 72 03/22/18 20:00 97.6 88 18 124/63 (83) 97 03/22/18 20:00 102 18 118/58 (78) 97 03/22/18 20:00 101 18 129/63 (85) 97 03/22/18 16:02 134/79 (97) 03/22/18 16:01 140/69 (92) 03/22/18 16:00 97.7 97 16 141/70 (93) 97 03/22/18 12:00 67 Result Diagram: 03/23/18 0630 03/21/18 0455 Laboratory Results Laboratory Tests Test 03/23/18 06:30 White Blood Count 15.1 TH/MM3 Red Blood Count 4.30 MIL/MM3 Hemoglobin 13.5 GM/DL Hematocrit 40.4 % Mean Corpuscular Volume 93.9 FL Mean Corpuscular Hemoglobin 31.4 PG Mean Corpuscular Hemoglobin Concent 33.4 % Red Cell Distribution Width 14.2 % Platelet Count 152 TH/MM3 Mean Platelet Volume 8.5 FL Neutrophils (%) (Auto) 88.0 % Lymphocytes (%) (Auto) 7.4 % Monocytes (%) (Auto) 4.5 % Eosinophils (%) (Auto) 0.0 % Basophils (%) (Auto) 0.1 % Neutrophils # (Auto) 13.3 TH/MM3 Lymphocytes # (Auto) 1.1 TH/MM3 Monocytes # (Auto) 0.7 TH/MM3 Eosinophils # (Auto) 0.0 TH/MM3 Basophils # (Auto) 0.0 TH/MM3 CBC Comment DIFF FINAL Differential Comment Prothrombin Time 11.4 SEC Prothromb Time International Ratio 1.1 RATIO Activated Partial Thromboplast Time 25.4 SEC Fibrinogen 101 mg/dL Administered Medications Medications (Trade) Dose Ordered Sig/Nancy Route PRN Reason Start Time Stop Time Status Last Admin Dose Admin Sodium Chloride (NS Flush) 2 ml BID IV FLUSH 03/09/18 21:00 03/23/18 09:39 Pantoprazole Sodium (Protonix) 20 mg DAILY PO 03/10/18 09:00 03/23/18 09:36 Loratadine (Claritin) 10 mg DAILY PO 03/13/18 09:00 03/23/18 09:36 Albumin Human 3,500 ml @ 250 mls/hr EVERY OTHER DAY IV 03/16/18 09:00 03/24/18 22:59 03/20/18 12:23 Methylprednisolone Sodium Succinate (SoluMEDROL INJ) 125 mg EVERY OTHER DAY IV PUSH 03/16/18 09:00 03/24/18 09:01 03/22/18 08:13 Famotidine (Pepcid Inj) 20 mg EVERY OTHER DAY IV PUSH 03/16/18 09:00 03/24/18 09:01 03/22/18 08:12 Calcium Gluconate 3 gm/Sodium Chloride 180 ml @ 90 mls/hr EVERY OTHER DAY IV 03/16/18 09:00 03/24/18 10:59 03/20/18 12:24 Sodium Chloride 1,000 ml @ 0 mls/hr Q0M IV 03/16/18 08:00 03/24/18 09:01 03/18/18 10:30 Anticoagulant Citrate Dextose Jannette A (Acd Formula Inj) 1,000 ml EVERY OTHER DAY OTHER 03/16/18 09:00 03/24/18 09:01 03/20/18 12:24 Heparin Sodium (Porcine) (Heparin Inj) 1,000 units UNSCH PRN IV FLUSH FLUSH AFTER USING IV ACCESS 03/16/18 08:00 03/24/18 09:01 03/18/18 10:30 Acetaminophen (Tylenol) 650 mg Q4H PRN PO SEE LABEL COMMENTS 03/19/18 09:30 03/19/18 12:55 Diphenhydramine HCl (Benadryl) 25 mg Q4H PRN PO SEE LABEL COMMENTS 03/19/18 09:30 03/19/18 12:55 Objective Remarks GENERAL: pleasant male, upright in chair next to bed in nad. SKIN: Warm and dry. vas-cath without bleeding. HEAD: Normocephalic. EYES: no injection or drainage. NECK: Supple, trachea midline. CARDIOVASCULAR: Regular rate and rhythm RESPIRATORY: Breath sounds equal bilaterally. No accessory muscle use. GASTROINTESTINAL: Abdomen soft, non-tender, nondistended. EXTREMITIES: No cyanosis NEUROLOGICAL: awake, and alert. facial movements symmetric. moving all extremities. Assessment/Plan Problem List: (1) plasma exchange Plan: 03/23: off day 03/22: PEX #4 03/20: PEX#3 03/18: PEX #2 03/16: vas-cath placed, PEX #1 --LP showed slight elevation in total protein. --Lyme disease evaluation was negative. --Paraneoplastic labs are still pending. --had a presentation of dizziness, history of chronic peripheral neuropathy who developed ataxia to the point that he is unable to walk. 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 hematology consulted for plasma exchange. history of noninvasive bladder cancer. Histoplasmosis. Gastroesophageal reflux disease. Hyperlipidemia. Hypertension. Chronic idiopathic lower extremity neuropathy. Plan 1. plasma exchange #5 tomorrow 2. monitor CBC, coags Tiffani Mart Mar 23, 2018 10:56
--- NOTE | 2018-03-23 10:59 | HHI.PR ---
Subjective Remarks The patient was very discouraged. He said that he felt worse this morning than he has in a while. He still feels like the room is spinning around. He denies double vision. He says that he has not traveled anywhere recently. He has not had any medication changes recently. Discussed with and nursing at the bedside. Objective Vitals Vital Signs Date Time Temp Pulse Resp B/P (MAP) Pulse Ox O2 Delivery O2 Flow Rate FiO2 03/23/18 08:02 128/71 (90) 03/23/18 08:01 115/62 (79) 03/23/18 08:00 98.0 67 17 122/68 (86) 96 03/23/18 04:06 102 03/23/18 04:00 97.5 70 18 121/60 (80) 97 03/23/18 00:00 97.6 86 18 132/63 (86) 95 03/22/18 20:01 109 03/22/18 20:00 72 03/22/18 20:00 97.6 88 18 124/63 (83) 97 03/22/18 20:00 102 18 118/58 (78) 97 03/22/18 20:00 101 18 129/63 (85) 97 03/22/18 16:02 134/79 (97) 03/22/18 16:01 140/69 (92) 03/22/18 16:00 97.7 97 16 141/70 (93) 97 03/22/18 12:00 67 I/O 03/22/18 03/22/18 03/22/18 03/23/18 03/23/18 03/23/18 07:00 15:00 23:00 07:00 15:00 23:00 Output Total 500 ml Balance -500 ml Output Urine Total 500 ml # Voids 5 # Bowel Movements 1 Result Diagram: 03/23/18 0630 03/21/18 0455 Imaging Last Impressions Catheter Placement X-Ray 03/15/18 0000 Signed Impressions: CONCLUSION: 1. Uncomplicated line placement as above. Lumbar Puncture Fluoroscopy 03/14/18 0000 Signed Impressions: CONCLUSION: 1. Uncomplicated fluoroscopically guided lumbar puncture. Brain MRI 03/12/18 0819 Signed Impressions: CONCLUSION: 1. Unremarkable and stable follow-up MRI of the brain compared to the prior ex amination. 2. 1.9 cm mucous retention cyst in the base of the right maxillary sinus. Thoracic Spine MRI 03/11/18 Signed Impressions: CONCLUSION: 1. Tiny right paracentral bulging T5-T6 2. Small right paracentral bulging T7-T8 3. Mild left lateral bulging at T10-T11 4. Mild degenerative changes. Chest CT 03/11/18 Signed Impressions: CONCLUSION: 1. No acute intrathoracic abnormality. In particular, no CT evidence to sugges t metastatic disease to the chest. 2. Coronary artery atherosclerotic calcifications. 3. Mild chronic interstitial changes. 4. Prior granulomatous disease. Cervical Spine MRI 03/11/18 Signed Impressions: CONCLUSION: 1. Unremarkable postcontrast images of the cervical spine. Abdomen/Pelvis CT 03/11/18 Signed Impressions: CONCLUSION: 1. The evaluation of the urinary bladder is limited partly due to beam hardeni ng artifact from a left hip prosthesis. I am not able to appreciate a discrete mass. 2. Prior granulomatous disease. 3. Small sclerotic focus involving the sacrum at the S1 level felt to relate t o a bone island. 4. 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 5. 2 nonobstructing renal calculi on the left. Neck Magnetic Resonance Angiography 03/10/18805 Signed Impressions: CONCLUSION: Minimal proximal right ICA stenosis Percent stenosis is calculated using the diameter of the stenotic region over t he diameter of the normal distal internal carotid artery Head Magnetic Resonance Angiography 03/10/18805 Signed Impressions: CONCLUSION: No acute [place] of Moser vascular findings. Head CT 03/09/18 Signed Impressions: CONCLUSION: 1. Senescent changes without acute intracranial abnormality. Objective Remarks GENERAL: This is a well-nourished, well-developed patient, in no apparent distress. CARDIOVASCULAR: RRR, no gallops, or rubs. RESPIRATORY: CTAB. GASTROINTESTINAL: Abdomen soft, non-tender, nondistended. Positive bowel sounds MUSCULOSKELETAL: Extremities without clubbing, cyanosis, or edema. Pedal pulses appreciated NEUROLOGICAL: Awake and alert. Moves all extremity. Normal speech. Unstable gait/ataxic. Peripheral vision impaired on the right. Procedures none A/P Problem List: (1) Ataxia ICD Code: R27.0 - Ataxia, unspecified Status: Acute Assessment and Plan Ataxia/ Vertigo Onset over the past month, worsening. This is persistent, etiology to be determined. Patient was found to have a tick bite on admission. Repeat MRI negative. Patient has underwent extensive imaging workup, negative. Lumbar puncture results noted.Neurology recommended plasma exchange and hematology was consulted. S/p four sessions of plasmapheresis. - continue plasmapheresis. - continue steroids. - follow up with neurology. Will reconsult 03/23 as pt not improving. - PT/ OT. - will likely need HHC. GERD Chronic. - Continue PPI. Recent subjective weight loss Patient reports decreased oral intake and has not been active. - Ensure with meals. Hypertension. Blood pressure variable. Not orthostatic - Vasotec as needed. Leukocytosis S/t steroids. - monitor as needed. DVT proph with SCd and early ambulation Discharge Planning Await neurology re-Carmelo De Leon DO Mar 23, 2018 10:59
[2018-03-23] MEDS: ASPIRIN EC 81 MG TABEC PO SCH (14:18)
--- NOTE | 2018-03-23 16:04 | HHI.PR ---
Subjective Remarks PLEX#5 tomorrow. no improvement seen. Unable to walk w/o walker. Hx of neuropathy more left foot hx agent orange exposure yrs ago. no heavy metal exposure. no recent colds/diarrhea illness no recent travel. tick bite per pt no rash-wood tick not small deer tick. has maybe 2 drinks at night wine. no excessive consumption of fish. did use chemicals outside on lawn and repaired indoors linoleum with a glue. hx neuropathy emg yrs ago -per pt notes sciatica-he denies back pain. Objective Vital Signs Date Time Temp Pulse Resp B/P (MAP) Pulse Ox O2 Delivery O2 Flow Rate FiO2 03/23/18 12:00 134/64 (87) 03/23/18 12:00 97.9 63 17 153/71 (98) 96 03/23/18 12:00 153/72 (99) 03/23/18 08:02 128/71 (90) 03/23/18 08:01 115/62 (79) 03/23/18 08:00 98.0 67 17 122/68 (86) 96 03/23/18 04:06 102 03/23/18 04:00 97.5 70 18 121/60 (80) 97 03/23/18 00:00 97.6 86 18 132/63 (86) 95 03/22/18 20:01 109 03/22/18 20:00 72 03/22/18 20:00 97.6 88 18 124/63 (83) 97 03/22/18 20:00 102 18 118/58 (78) 97 03/22/18 20:00 101 18 129/63 (85) 97 03/22/18 16:02 134/79 (97) 03/22/18 16:01 140/69 (92) 03/22/18 16:00 97.7 97 16 141/70 (93) 97 I/O 03/22/18 03/22/18 03/22/18 03/23/18 03/23/18 03/23/18 07:00 15:00 23:00 07:00 15:00 23:00 Output Total 500 ml Balance -500 ml Output Urine Total 500 ml # Voids 5 # Bowel Movements 1 Result Diagram: 03/23/18 0630 03/21/18 2521 Objective Remarks awake and alert perrla,no nystagmus nl speech. motor 5/5 ue and le ?mild volume loss both gastroc minimal dtrs 2+ue trace knees b/l absent ankles. sensory to pain temp,pos sense. gait gets out of chair using arms needs walker more difficult with left foot to toe tap.-states not new. wide based,unsteady w/o walker sways if not using walker fnf nl hks more difficult for pt ,mild dysmetria. Assessment and Plan Assessment and Plan unsteady gait/ataxia?gbs variant -finish plex tomorrow -I want a last mri brain w/wo -reviewed all scans and labs and d/w pt and his .D/w them plans and in agreement. -can go home tomorrow after plex will set up outpt for next week ivig and f/u with emg-ncs. Tonya Silva MD Mar 23, 2018 16:04
[2018-03-23] MEDS ORDERED: GADODIAMIDE PF 287 MG/ML 20 ML VIAL (for RAD MRI) IVCONTRAST ONE (19:50)
--- NOTE | 2018-03-23 20:10 | RADRPT ---
EXAM DATE: 03/23/2018 7:59 PM EDT AGE/SEX: 77 years / Male INDICATIONS: Inability to ambulate. Ataxia. CLINICAL DATA: This is the patient's subsequent encounter. Patient reports that signs and symptoms h ave been present for 1 day and indicates a pain score of 0/10. MEDICAL/SURGICAL HISTORY: Hypertension. Fusion, lumbar. Thumb, right upper lobectomy and left h ip replacement. COMPARISON: [facility] [place], MRI BRAIN W & W/O CONTRAST, 03/12/2018. . TECHNIQUE: Multiplanar, multisequence examination of the brain was performed without and with 17 ml O mniscan (gadodiamide) contrast as a single exam dose. FINDINGS: Cerebrum: There is mild generalized atrophy. Ventricles are normal. No evidence of midline shift, m ass lesion, hemorrhage or acute infarction. No extraaxial fluid collections are seen. The pituitary gland and suprasellar cistern are normal in configuration. White Matter: There is mild periventricular and subcortical white matter signal change bilaterally, stable from the prior exam. Posterior Fossa: There is focal area of mildly increased FLAIR signal in the right cerebellum measuri ng approximately 8 mm. Fourth ventricle is normal. Diffusion Imaging: There is a focal area of restricted diffusion in the right lateral cerebellum. Th ere is associated mild decreased ADC signal and increased FLAIR signal. These findings are new from t he prior examination. No other area of restricted diffusion is identified. Extracranial: There is a stable mucous retention cyst in the right maxillary antrum. Post Contrast: No abnormal areas of parenchymal or dural enhancement. No evidence of blood-brain ba rrier breakdown. CONCLUSION: 1. There is an area of restricted diffusion and mild edema measuring 8 mm in the right cerebellum. T his is new since the most recent prior examination and is characteristic of an area of recent ischemi a. 2. Otherwise, stable brain changes including mild generalized atrophy and chronic periventricular an d subcortical white matter signal change characteristic of chronic microvascular ischemia. Electronically signed by: Sonu Dupont MD 03/23/2018 8:08 PM EDT
[2018-03-23] MEDS ORDERED: PRAVASTATIN SOD 80 MG TAB PO SCH (21:00)
[2018-03-24 04:00] VITALS: BP 129/63; PULSE 63; RESP 18; TEMP 97.7; O2SAT 97
[2018-03-24 07:12] LABS: AUTOMATED NEUTROPHIL # 4.6 TH/MM3 (1.8-7.7); BASOPHIL % 0.4 % (0.0-2.0); EOSINOPHIL # 0.1 TH/MM3 (0-0.4); EOSINOPHIL % 1.4 % (0.0-4.0); HEMATOCRIT 37.4 % (39.0-51.0); HEMOGLOBIN 12.5 GM/DL (13.0-17.0); LYMPHOCYTE # 2.1 TH/MM3 (1.0-4.8); MEAN CELL VOLUME 93.9 FL (80.0-100.0); MEAN CORPUSCULAR HEMOGLOBIN 31.3 PG (27.0-34.0); MEAN CORPUSCULAR HGB CONC 33.3 % (32.0-36.0); MEAN PLATELET VOLUME 8.5 FL (7.0-11.0); MONO % 8.1 % (0.0-8.0); MONOCYTE # 0.6 TH/MM3 (0-0.9); NEUT % 62.1 % (16.0-70.0); PLATELET COUNT 135 TH/MM3 (150-450); RED BLOOD COUNT 3.98 MIL/MM3 (4.50-5.90); RED CELL DISTRIBUTION WIDTH 14.4 % (11.6-17.2); WHITE BLOOD COUNT 7.5 TH/MM3 (4.0-11.0)
[2018-03-24 07:21] LABS: INTERNATIONAL NORMALIZED RATIO 1.1 RATIO; PROTHROMBIN TIME - PATIENT 10.8 SEC (9.8-11.6)
[2018-03-24 08:28] VITALS: BP 121/63; PULSE 63; RESP 18; TEMP 97.6; O2SAT 97
[2018-03-24] MEDS: ALBUMIN 5% INJ 3,500 ML IV SCH (09:00)
--- NOTE | 2018-03-24 10:08 | PD.ONC.PN ---
Subjective Subjective Remarks Afebrile overnight. Patient resting in room. No complaints. still no improvement in symptoms. Objective Data Date Time Temp Pulse Resp B/P (MAP) Pulse Ox O2 Delivery O2 Flow Rate FiO2 03/24/18 08:28 97.6 63 18 121/63 (82) 97 03/24/18 04:00 97.7 63 18 129/63 (85) 97 03/23/18 23:00 69 03/23/18 20:00 97.9 61 18 127/65 (85) 95 03/23/18 20:00 126/65 (85) 124/68 (86) 03/23/18 16:00 141/67 (91) 03/23/18 16:00 69 03/23/18 16:00 97.7 69 17 137/73 (94) 96 03/23/18 16:00 152/74 (100) 03/23/18 12:00 134/64 (87) 03/23/18 12:00 64 03/23/18 12:00 97.9 63 17 153/71 (98) 96 03/23/18 12:00 153/72 (99) Result Diagram: 03/24/18 0615 03/21/18 0455 Laboratory Results Laboratory Tests Test 03/24/18 06:15 White Blood Count 7.5 TH/MM3 Red Blood Count 3.98 MIL/MM3 Hemoglobin 12.5 GM/DL Hematocrit 37.4 % Mean Corpuscular Volume 93.9 FL Mean Corpuscular Hemoglobin 31.3 PG Mean Corpuscular Hemoglobin Concent 33.3 % Red Cell Distribution Width 14.4 % Platelet Count 135 TH/MM3 Mean Platelet Volume 8.5 FL Neutrophils (%) (Auto) 62.1 % Lymphocytes (%) (Auto) 28.0 % Monocytes (%) (Auto) 8.1 % Eosinophils (%) (Auto) 1.4 % Basophils (%) (Auto) 0.4 % Neutrophils # (Auto) 4.6 TH/MM3 Lymphocytes # (Auto) 2.1 TH/MM3 Monocytes # (Auto) 0.6 TH/MM3 Eosinophils # (Auto) 0.1 TH/MM3 Basophils # (Auto) 0.0 TH/MM3 CBC Comment DIFF FINAL Differential Comment Prothrombin Time 10.8 SEC Prothromb Time International Ratio 1.1 RATIO Activated Partial Thromboplast Time 24.2 SEC Fibrinogen 111 mg/dL Administered Medications Medications (Trade) Dose Ordered Sig/Nancy Route PRN Reason Start Time Stop Time Status Last Admin Dose Admin Sodium Chloride (NS Flush) 2 ml BID IV FLUSH 03/09/18 21:00 03/23/18 21:53 Pantoprazole Sodium (Protonix) 20 mg DAILY PO 03/10/18 09:00 03/23/18 09:36 Loratadine (Claritin) 10 mg DAILY PO 03/13/18 09:00 03/23/18 09:36 Albumin Human 3,500 ml @ 250 mls/hr EVERY OTHER DAY IV 03/16/18 09:00 03/24/18 22:59 03/20/18 12:23 Calcium Gluconate 3 gm/Sodium Chloride 180 ml @ 90 mls/hr EVERY OTHER DAY IV 03/16/18 09:00 03/24/18 10:59 03/20/18 12:24 Acetaminophen (Tylenol) 650 mg Q4H PRN PO SEE LABEL COMMENTS 03/19/18 09:30 03/19/18 12:55 Diphenhydramine HCl (Benadryl) 25 mg Q4H PRN PO SEE LABEL COMMENTS 03/19/18 09:30 03/19/18 12:55 Aspirin (Ecotrin Ec) 81 mg DAILY PO 03/23/18 12:30 03/23/18 14:18 Pravastatin Sodium (Pravachol) 80 mg HS PO 03/23/18 21:00 03/23/18 21:54 Objective Remarks GENERAL: pleasant male, sitting up in room in [facility]. SKIN: Warm and dry. vas-cath without bleeding. HEAD: Normocephalic. EYES: no injection or drainage. NECK: Supple, trachea midline. CARDIOVASCULAR: Regular rate and rhythm RESPIRATORY: Breath sounds equal bilaterally. No accessory muscle use. GASTROINTESTINAL: Abdomen soft, non-tender, nondistended. EXTREMITIES: No cyanosis NEUROLOGICAL: awake and alert. normal speech. moving all extremities. Assessment/Plan Problem List: (1) plasma exchange Plan: 03/24: PEX #5 03/23: off day 03/22: PEX #4 03/20: PEX#3 03/18: PEX #2 03/16: vas-cath placed, PEX #1 --LP showed slight elevation in total protein. --Lyme disease evaluation was negative. --Paraneoplastic labs are still pending. --had a presentation of dizziness, history of chronic peripheral neuropathy who developed ataxia to the point that he is unable to walk. 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 hematology consulted for plasma exchange. history of noninvasive bladder cancer. Histoplasmosis. Gastroesophageal reflux disease. Hyperlipidemia. Hypertension. Chronic idiopathic lower extremity neuropathy. Plan 1. plasma exchange #5 today 2. monitor CBC, coags 3. remove vas-cath after last PEX today. Tiffani Mart Mar 24, 2018 10:08
[2018-03-24] MEDS: SODIUM CHLORIDE 0.9% FLUSH 10 ML FLUSH IV FLUSH SCH (11:00)
[2018-03-24] MEDS: methylPREDNISolone SOD SUCC 125 MG/2 ML VIAL IV PUSH SCH (11:00)
[2018-03-24] MEDS: FAMOTIDINE 20 MG/2 ML VIAL IV PUSH SCH (11:02)
[2018-03-24] MEDS: ASPIRIN EC 81 MG TABEC PO SCH (11:02)
[2018-03-24] MEDS: LORATADINE 10 MG TAB PO SCH (11:02)
[2018-03-24] MEDS: PANTOPRAZOLE SOD 20 MG DELAYED RELEASE TAB PO SCH (11:02)
[2018-03-24] MEDS ORDERED: PLAV75TA29 PO (11:09)
--- NOTE | 2018-03-24 11:10 | HHI.DCPOC ---
Discharge Care Plan Diagnosis: (1) Acute CVA (cerebrovascular accident) (2) Dizziness (3) Ataxia Goals to Promote Your Health * To prevent worsening of your condition and complications * To maintain your health at the optimal level Directions to Meet Your Goals Take your medications as prescribed Follow your dietary instruction Follow activity as directed Keep your appointments as scheduled Take your immunizations and boosters as scheduled If your symptoms worsen call your PCP, if no PCP go to Urgent Care Center or Emergency Room Smoking is Dangerous to Your Health. Avoid second hand smoke Call the 24-hour hour crisis hotline for domestic abuse at Carmelo Moya DO Mar 24, 2018 11:10
--- NOTE | 2018-03-24 11:11 | HHI.DS ---
Discharge Summary Admission Date March 11, 2018 at 14:25 Discharge Date: Mar 24, 2018 Admitting Diagnosis Ataxia, dizziness (1) Ataxia ICD Code: R27.0 - Ataxia, unspecified Status: Acute (2) Acute CVA (cerebrovascular accident) ICD Code: I63.9 - Cerebral infarction, unspecified Diagnosis: Principal (3) Dizziness ICD Code: R42 - Dizziness and giddiness Diagnosis: Principal Status: Acute Procedures none Brief History - From Admission 77-year-old male with chronic bilateral lower extremity neuropathy, hypertension , hyperlipidemia who presents with a little over a one-month history of progressively worsening ataxia, multiple falls, unable to walk or take care of himself at home for fear of safety. He also reports subjective weight loss over the past month, muscle wasting. Reports normal appetite. Denies any chest pain or shortness of breath. Denies nausea or vomiting. He denies actual vertigo, however has had vestibular rehab without any improvement. He is also reportedly had bilateral carotid ultrasound which were negative, MRI brain reportedly negative as well. Patient says he has fallen several times secondary to loss of balance, and does not feel safe going home. CBC/BMP: 03/24/18 0615 03/21/18 0455 Significant Findings Laboratory Tests Test 03/22/18 09:00 03/23/18 06:30 03/24/18 06:15 Red Blood Count 4.38 MIL/MM3 (4.50-5.90) 4.30 MIL/MM3 (4.50-5.90) 3.98 MIL/MM3 (4.50-5.90) Platelet Count 145 TH/MM3 (150-450) 135 TH/MM3 (150-450) Monocytes (%) (Auto) 8.7 % (0.0-8.0) 8.1 % (0.0-8.0) White Blood Count 15.1 TH/MM3 (4.0-11.0) Neutrophils (%) (Auto) 88.0 % (16.0-70.0) Lymphocytes (%) (Auto) 7.4 % (9.0-44.0) Neutrophils # (Auto) 13.3 TH/MM3 (1.8-7.7) Fibrinogen 101 mg/dL (227-377) 111 mg/dL (227-377) Hemoglobin 12.5 GM/DL (13.0-17.0) Hematocrit 37.4 % (39.0-51.0) Activated Partial Thromboplast Time 24.2 SEC (24.3-30.1) Imaging Last Impressions Brain MRI 03/23/18 Signed Impressions: CONCLUSION: 1. There is an area of restricted diffusion and mild edema measuring 8 mm in t he right cerebellum. This is new since the most recent prior examination and is characteristic of an area of recent ischemia. 2. Otherwise, stable brain changes including mild generalized atrophy and solar energy specialist jeni periventricular and subcortical white matter signal change characteristic o f chronic microvascular ischemia. Catheter Placement X-Ray 03/15/18 Signed Impressions: CONCLUSION: 1. Uncomplicated line placement as above. Lumbar Puncture Fluoroscopy 03/14/18 Signed Impressions: CONCLUSION: 1. Uncomplicated fluoroscopically guided lumbar puncture. Thoracic Spine MRI 03/11/18 Signed Impressions: CONCLUSION: 1. Tiny right paracentral bulging T5-T6 2. Small right paracentral bulging T7-T8 3. Mild left lateral bulging at T10-T11 4. Mild degenerative changes. Chest CT 03/11/18 Signed Impressions: CONCLUSION: 1. No acute intrathoracic abnormality. In particular, no CT evidence to sugges t metastatic disease to the chest. 2. Coronary artery atherosclerotic calcifications. 3. Mild chronic interstitial changes. 4. Prior granulomatous disease. Cervical Spine MRI 03/11/18 Signed Impressions: CONCLUSION: 1. Unremarkable postcontrast images of the cervical spine. Abdomen/Pelvis CT 03/11/18 Signed Impressions: CONCLUSION: 1. The evaluation of the urinary bladder is limited partly due to beam hardeni ng artifact from a left hip prosthesis. I am not able to appreciate a discrete mass. 2. Prior granulomatous disease. 3. Small sclerotic focus involving the sacrum at the S1 level felt to relate t o a bone island. 4. 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 5. 2 nonobstructing renal calculi on the left. Neck Magnetic Resonance Angiography 03/10/18 0806 Signed Impressions: CONCLUSION: Minimal proximal right ICA stenosis Percent stenosis is calculated using the diameter of the stenotic region over t he diameter of the normal distal internal carotid artery Head Magnetic Resonance Angiography 03/10/18 0806 Signed Impressions: CONCLUSION: No acute [place] vascular findings. Head CT 03/09/18 0000 Signed Impressions: CONCLUSION: 1. Senescent changes without acute intracranial abnormality. PE at Discharge GENERAL: This is a well-nourished, well-developed patient, in no apparent distress. CARDIOVASCULAR: RRR, no gallops, or rubs. RESPIRATORY: CTAB. GASTROINTESTINAL: Abdomen soft, non-tender, nondistended. Positive bowel sounds MUSCULOSKELETAL: Extremities without clubbing, cyanosis, or edema. Pedal pulses appreciated NEUROLOGICAL: Awake and alert. Moves all extremity. Normal speech. Unstable gait/ataxic. Peripheral vision impaired on the right. Pt update on day of discharge The patient was sitting in a chair. He was ready for his last plasmapheresis session. He said he was still feeling the same. Went over the MRI results with the patient. Discussed with nursing. Hospital Course Ataxia/ Vertigo/ Acute CVA Onset over the past month, gradually getting worse. Patient was found to have a tick bite on admission. Neurology and infectious disease were consulted. He was not found to be orthostatic. Patient has undergone extensive imaging which have all been negative for an acute process. Lumbar puncture was eventually performed. Total protein was slightly elevated. Neurology recommended plasma exchange and hematology was consulted for that. The pt is s/p four sessions of plasmapheresis without improvement in his symptoms. He also received IV Solumedrol per neurology. He worked with PT and OT. Repeat MRI of the brain showed: There is an area of restricted diffusion and mild edema measuring 8 mm in the right cerebellum; This is new since the most recent prior examination and is characteristic of an area of recent ischemia. The pt will be switched to Plavix upon discharge. He will continue a statin. He will follow up with neurology in one week. He will be discharged with home health services. He will be discharged with a Holter monitor per neurology recommendation. Pt Condition on Discharge: Stable Discharge Disposition: Disch w/ Home Health Serv Discharge Time: > 30 minutes Discharge Instructions DIET: Follow Instructions for: Heart Healthy Diet Activities you can perform: Weight Bearing as Kiah Follow up Referrals: Appointment for Follow Up @ Neurology Neurology - 1 Week with Mickey Mata MD PCP Follow-up - 1 Week PCP Follow-up New Medications: Clopidogrel (Plavix) 75 Mg Tab 75 MG PO DAILY for Blood Clot Prevention, #30 TAB 0 Refills Continued Medications: Loratadine (Claritin) 10 Mg Cap 10 MG PO DAILY for Allergy Management, CAP 0 Refills Losartan-Hydrochlorothiazide (Losartan-Hydrochlorothiazide) 50-12.5 Mg Tab 1 TAB PO DAILY for Blood Pressure Management, #30 TAB 0 Refills Lutein (Lutein) 20 Mg Cap 25 MG PO DAILY for Nutritional Supplement, CAP 0 Refills Omeprazole (Omeprazole) 20 Mg Tab 20 MG PO DAILY, #30 TAB 0 Refills Simvastatin (Simvastatin) 40 Mg Tab 40 MG PO HS for Cholesterol Management, #30 TAB 0 Refills Discontinued Medications: Aspirin (Aspirin Low Dose) 81 Mg Chew 81 MG CHEW DAILY, TAB 0 Refills Meloxicam (Meloxicam) 15 Mg Tab 15 MG PO DAILY for Arthritis Pain, #30 TAB 0 Refills Carmelo Moya DO Mar 24, 2018 11:11
--- NOTE | 2018-03-24 11:12 | HHI.FF ---
Face to Face Verification Diagnosis: (1) Acute CVA (cerebrovascular accident) (2) plasma exchange (3) Dizziness (4) Ataxia Physical Therapy Order: Evaluate and Treat, Improve ambulation, Strength and gait training Occupational Therapy Order: Evaluate and Treat, Improve ADL, Gross motor coordination, Fine motor coordination Home Health Nursing Order: Medical education Signs/symptoms of disease process Medication education-adverse effect Nursing assessment with vital signs I have seen patient Juventino Kc on 03/24/18. My clinical findings support the need for the requested home health care services because: Ltd mobility - disease progression Deconditioned w/ increased weakness Limited ability to care for self High risk of falls I certify that my clinical findings support that this patient is homebound because: Unsteady gait/balance Unsafe to leave home unassisted Carmelo Moya DO Mar 24, 2018 11:12
[2018-03-24 13:26] VITALS: PULSE 62
--- NOTE | 2018-03-27 14:35 | HM ---
Date Performed: 03/24/2018 Time Performed: 16:39:00 HOOKUP DATE: 03/24/18 04:39:00 PM Fri ANALYSIS START TIME: 03/24/2018 4:44:00 PM ANALYSIS END TIME: 03/25/2018 4:43:13 PM PATIENT AGE: 77 PATIENT HEIGHT PATIENT WEIGHT DRUG LIST PATIENT DIAGNOSIS: dizziness TEST NARRATIVE: The patient's average heart rate was 80 BPM. Heart rates greater than 120 B PM were noted 1% of the time. Heart rates less than 50 BPM were noted < 1% of the time. No pause s exceeding 2.0 seconds were noted. 148 ventricular ectopics, which represented < 1% of the total beat count, were noted. The highest ventricular ectopic frequency occurred from 10:00 PM to 11:00 P M Fri. During this time 54 VE(s) occurred. Ventricular ectopics were observed as 148 isolated beat( s) only. No couplets or runs were noted. 1094 supraventricular ectopics, which represented 1% of the total beat count, were noted. The highest supraventricular ectopic frequency occurred from 02:0 0 AM to 03:00 AM Sat. During this time 137 SVE(s) occurred. No episodes of ST depression (define d as -1.0 mm or more) were noted in channel 1. No episodes of ST depression (defined as -1.0 mm or m ore) were noted in channel 2. No episodes of ST depression (defined as -1.0 mm or more) were noted i n channel 3. TEST INTERPRETATION: Patient was monitored for 23 hours and 59 minutes. Patient was in normal Si n[place] rhythm with an average heart rate of 80 bpm, sinus bradycardia of 50 bpm, and maximum heart rate of 128 bpm . 148 PVCs. 908 PACs. 11 runs of PACs, longest of which is 16 beats. Signed by : Dylan Zelaya
== END 2018-03-24 17:20 | disposition home health service (06) | DRG 66 ==
LOC: NEPE 11:04 → NEDA 18:33 → NEPHCDU 20:16 → OBSVTOIN 03-11 14:25 → N05B 03-11 22:58
PROVIDERS: ADMIT Hospitalist; ATTEND Hospitalist
PROC: 6A551Z3 Pheresis of Plasma, Multiple (ICD-10-PCS; principal; 2018-03-11)
PROC: 009U3ZX Drainage of Spinal Canal, Percutaneous Approach, Diagnostic (ICD-10-PCS; 2018-03-14)
PROC: 02HV33Z Insertion of Infusion Device into Superior Vena Cava, Percutaneous Approach (ICD-10-PCS; 2018-03-15)
PROC: 30233M1 Transfusion of Nonautologous Plasma Cryoprecipitate into Peripheral Vein, Percutaneous Approach (ICD-10-PCS; 2018-03-19)
DX: I63.9 Cerebral infarction, unspecified (principal); I10 Essential (primary) hypertension; K21.9 Gastro-esophageal reflux disease without esophagitis; R42 Dizziness and giddiness; R26.0 Ataxic gait; R29.6 Repeated falls; W57.XXXA Bitten or stung by nonvenomous insect and other nonvenomous arthropods, initial encounter; R63.4 Abnormal weight loss; G57.93 Unspecified mononeuropathy of bilateral lower limbs; E78.5 Hyperlipidemia, unspecified; J30.1 Allergic rhinitis due to pollen; Z79.82 Long term (current) use of aspirin
CPT/HCPCS: 36430; 36514; 36556; 62270; 70450; 70544; 70548; 70553; 71260; 72141; 72142; 72157; 74177; 76937; 77001; 77003; 80048; 80053; 80061; 80307; 81001; 82040; 82042; 82525; 82550; 82607; 82784; 82945; 83873; 83916; 83921; 84157; 84165; 84425; 84443; 84446; 84484; 85025; 85027; 85384; 85610; 85652; 85730; 86038; 86140; 86255; 86403; 86592; 86617; 86618; 86651; 86652; 86653; 86654; 86738; 86900; 86901; 86965; 87015; 87070; 87102; 87116; 87205; 87206; 87529; 88108; 89051; 93005; 93225; 93226; 93306; A9579; C1752; G8987-GO; G8987-GP; G8988-GO; G8988-GP; J0610; J1644; J2930; J7030; J7050; P9045; Q9967